=== PATIENT | male | born 1950 | race Caucasian/White ===

== ENCOUNTER → 2019-03-19 12:34 | Outpatient (BNVA) | payer MEDICARE, SELFPAY | PROVIDERS: Family Provider Family Medicine; PCP Family Medicine; Visit Provider Anesthesiology | DX: R52 Pain, unspecified (principal); E13.43 Other specified diabetes mellitus with diabetic autonomic (poly)neuropathy; F17.210 Nicotine dependence, cigarettes, uncomplicated; Z79.891 Long term (current) use of opiate analgesic | CPT/HCPCS: 99214 ==

== ENCOUNTER → 2019-05-08 12:57 | Outpatient (BNVA) | payer MEDICARE, SELFPAY | PROVIDERS: Family Provider Family Medicine; PCP Family Medicine; Visit Provider Anesthesiology | DX: Z76.89 Persons encountering health services in other specified circumstances (principal) ==

== ENCOUNTER → 2019-07-11 10:28 | Outpatient (BNVA) | payer MEDICARE, SELFPAY | PROVIDERS: Family Provider Family Medicine; PCP Family Medicine; Visit Provider Anesthesiology | DX: G89.29 Other chronic pain (principal); M54.42 Lumbago with sciatica, left side; E13.43 Other specified diabetes mellitus with diabetic autonomic (poly)neuropathy; F17.210 Nicotine dependence, cigarettes, uncomplicated; Z79.891 Long term (current) use of opiate analgesic; Z71.6 Tobacco abuse counseling | CPT/HCPCS: 99214 ==

== ENCOUNTER → 2019-09-20 09:19 | Outpatient (BNVA) | payer MEDICARE, SELFPAY | PROVIDERS: Family Provider Family Medicine; PCP Family Medicine; Visit Provider Nurse Practitioner | DX: G89.29 Other chronic pain (principal); M54.42 Lumbago with sciatica, left side; M06.9 Rheumatoid arthritis, unspecified; F17.210 Nicotine dependence, cigarettes, uncomplicated; Z79.891 Long term (current) use of opiate analgesic | CPT/HCPCS: 99213 ==

== ENCOUNTER → 2019-10-18 10:52 | Outpatient (BNVA) | payer MEDICARE, SELFPAY | PROVIDERS: Family Provider Family Medicine; PCP Family Medicine; Visit Provider Anesthesiology | DX: G89.29 Other chronic pain (principal); M54.42 Lumbago with sciatica, left side; E13.43 Other specified diabetes mellitus with diabetic autonomic (poly)neuropathy; F17.210 Nicotine dependence, cigarettes, uncomplicated; Z79.891 Long term (current) use of opiate analgesic | CPT/HCPCS: 99213; 99214 ==

== ENCOUNTER → 2019-12-18 07:57 | Outpatient (BNVA) | payer MEDICARE, SELFPAY | PROVIDERS: Family Provider Family Medicine; PCP Family Medicine; Visit Provider Anesthesiology | DX: G89.29 Other chronic pain (principal); M54.42 Lumbago with sciatica, left side; Z79.891 Long term (current) use of opiate analgesic | CPT/HCPCS: 99212; 99214 ==

== ENCOUNTER → 2020-02-12 08:57 | Outpatient (BNVA) | payer MEDICARE, SELFPAY | PROVIDERS: Family Provider Family Medicine; PCP Family Medicine; Visit Provider Anesthesiology | DX: G89.29 Other chronic pain (principal); M54.42 Lumbago with sciatica, left side; M25.551 Pain in right hip; E13.43 Other specified diabetes mellitus with diabetic autonomic (poly)neuropathy; F17.210 Nicotine dependence, cigarettes, uncomplicated; Z79.891 Long term (current) use of opiate analgesic | CPT/HCPCS: 99214 ==

== ENCOUNTER → 2020-04-08 08:41 | Outpatient (BNVA) | payer MEDICARE, SELFPAY | PROVIDERS: Family Provider Family Medicine; PCP Family Medicine; Visit Provider Anesthesiology | DX: G89.29 Other chronic pain (principal); M54.41 Lumbago with sciatica, right side; M25.552 Pain in left hip; M25.551 Pain in right hip; F17.210 Nicotine dependence, cigarettes, uncomplicated; Z79.891 Long term (current) use of opiate analgesic | CPT/HCPCS: 99214 ==

== ENCOUNTER → 2020-06-10 08:56 | Outpatient (BNVA) | payer MEDICARE, SELFPAY | PROVIDERS: Family Provider Family Medicine; PCP Family Medicine; Visit Provider Anesthesiology | DX: G89.29 Other chronic pain (principal); M54.41 Lumbago with sciatica, right side; E13.43 Other specified diabetes mellitus with diabetic autonomic (poly)neuropathy; F17.210 Nicotine dependence, cigarettes, uncomplicated; Z79.891 Long term (current) use of opiate analgesic | CPT/HCPCS: 99213 ==

== ENCOUNTER 2020-06-23 09:26 | Outpatient (CLI) | payer OTHER, MEDICARE, SELFPAY ==
--- NOTE | 2020-06-23 09:48 | CT_ITS ---
WS: [id number] CT NECK WITH CONTRAST HISTORY: DYSPHAGIA TECHNIQUE: Contiguous 5 mm axial images are performed through the neck with intravenous contrast. Sag ittal and coronal reformats are also submitted. All CT scans at [facility] use at least o ne of these dose optimization techniques: automated exposure control; mA and/or kV adjustment per pat ient size (includes targeted exams where dose is matched to clinical indication); or iterative recons truction. CONTRAST: CONTRAST: Omnipaque 300; 95 mL IV. DLP: 1227.31 mGycm COMPARISON: None available. Nasopharynx, oropharynx, hypopharynx and larynx are unremarkable. No soft tissue masses or abnormal e nhancement. Torus tubarius and fossa of Rosenmuller and parapharyngeal fat are normal. No significant lymphadenopathy is identified. Thyroid gland and salivary glands are normally enhancing with no masses. Advanced degenerative changes in the cervical spine. Most significant degenerative changes at C5-6 an d C6-7. Visualized portions of the skull base demonstrate no abnormalities. Orbits and globes are within norm al limits. No soft tissue masses. Visualized paranasal sinuses and mastoid air cells are normal. Severe emphysematous changes are noted at the lung apices. Paraseptal and centrilobular emphysema wit h fibrosis and scarring. Pulmonary fibrosis is most significant at the LEFT apex. Increasing soft tis darian at the LEFT apex extends towards the pleura. The extent of the soft tissue thickening has increas ed since 04/07/2018. Area of soft tissue thickening measures 2.5 x 2.6 cm. There is a additional spicul ated nodule maximum diameter of 1.1 cm at the RIGHT apex which is also more prominent. Mild circumferential thickening of the upper thoracic esophagus. CT/CT neck w con* [id number] IMPRESSION: 1. No mass or adenopathy within the neck. 2. Bilateral upper lobe increasing pulmonary opacifications. May all be progre ssion of fibrotic disease and related to severe bullous emphysema. As there has been a progression since 04/07/2018 recommend follow-up chest CT with IV contras t in 3 months.
[2020-06-23] MEDS: iohexol 300 mg/mL 100 mL Btl IV (10:29)
== END 2020-06-23 09:27 | disposition home or self-care (01) ==
PROVIDERS: PCP Family Medicine; Visit Provider Family Medicine
DX: R13.10 Dysphagia, unspecified (principal)
CPT/HCPCS: 70491; Q9967

== ENCOUNTER → 2020-07-03 10:44 | Outpatient (BNVA) | payer OTHER, MEDICARE, SELFPAY | PROVIDERS: PCP Family Medicine; Visit Provider Surgery | DX: Z01.812 Encounter for preprocedural laboratory examination (principal); Z20.822 Contact with and (suspected) exposure to COVID-19 | CPT/HCPCS: 87635 ==

== ENCOUNTER 2020-07-09 08:01 | Day surgery (SDC) | payer OTHER, MEDICARE, SELFPAY ==
[2020-07-07 08:04] VITALS: BMI 21.7
[2020-07-09 08:14] VITALS: BP 129/73; PULSE 70; RESP 20; TEMP 36.9; O2SAT 98
[2020-07-09] MEDS: sodium chloride 0.9% 1,000 ML 30 ML IV (08:42)
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
--- NOTE | 2020-07-09 09:46 | SUR.OPER ---
Pt dilated with 12, 13.5, 15; 15 16.5, 18, and 18, 19, 20 balloon
[2020-07-09 09:48] VITALS: BP 147/83; PULSE 81; RESP 147; TEMP 37; O2SAT 100
[2020-07-09 09:57] VITALS: BP 138/90; PULSE 71; RESP 18; TEMP 37.2; O2SAT 97
--- NOTE | 2020-07-09 14:48 | ANE.PACU2 ---
Inpatient post-anesthesia follow up: Airway intact: Yes Vital signs: Temperature 99.0 F Pulse Rate 71 Respiratory Rate 18 Blood Pressure 138/90 Pulse Oximetry 97 Oxygen Delivery Me thod Nasal Cannula Oxygen Flow Rate 3 Fraction of Inspir ed Oxygen Hydration adequate: Yes Nausea and vomiting: No Pain level: 1 Mental status: Baseline
== END 2020-07-09 10:08 | disposition home or self-care (01) ==
PROVIDERS: PCP Family Medicine; Visit Provider Surgery
DX: R13.10 Dysphagia, unspecified (principal); K22.2 Esophageal obstruction; M06.9 Rheumatoid arthritis, unspecified; I25.10 Atherosclerotic heart disease of native coronary artery without angina pectoris; I10 Essential (primary) hypertension; J44.9 Chronic obstructive pulmonary disease, unspecified; Z82.49 Family history of ischemic heart disease and other diseases of the circulatory system; F17.210 Nicotine dependence, cigarettes, uncomplicated; K21.9 Gastro-esophageal reflux disease without esophagitis; E11.9 Type 2 diabetes mellitus without complications; E78.5 Hyperlipidemia, unspecified
CPT/HCPCS: 43239; 43249; 88305; 96360; J2704; J7030

== ENCOUNTER → 2020-08-12 07:53 | Outpatient (BNVA) | payer MEDICARE, SELFPAY | PROVIDERS: PCP Family Medicine; Visit Provider Anesthesiology | DX: G89.29 Other chronic pain (principal); M54.41 Lumbago with sciatica, right side; M25.551 Pain in right hip; F17.210 Nicotine dependence, cigarettes, uncomplicated; Z79.891 Long term (current) use of opiate analgesic | CPT/HCPCS: 99213; 99214 ==

== ENCOUNTER 2020-08-18 13:43 | Emergency (ER) | payer OTHER, MEDICARE, SELFPAY ==
[2020-08-18 14:11] VITALS: BP 144/70; PULSE 102; RESP 16; TEMP 38.1; O2SAT 92; BMI 21.6
--- NOTE | 2020-08-18 14:32 | XRR_ITS ---
PROCEDURE INFORMATION: Exam: XR Chest Exam date and time: 08/18/2020 2:32 PM Age: 70 years old Clinical indication: Cough and dyspnea; Patient HX: History-c/o dyspnea/cough ; covid symptoms TECHNIQUE: Imaging protocol: XR of the chest. Views: 1 view. COMPARISON: CR Chest 1 [place] [id number] 04/11/2018 11:17 AM FINDINGS: Lungs: There is a bulla in the left upper lobe of the lung. There is chronic lung change and emphysema. No acute pneumonia or edema. Pleural spaces: Unremarkable. No pleural effusion. No pneumothorax. Heart/Mediastinum: Unremarkable. No cardiomegaly. Bones/joints: Unremarkable. XR/XR chest 1V portable [id number] IMPRESSION: There are no acute concerning abnormalities.
--- NOTE | 2020-08-18 14:32 | ECG_ITS ---
[facility] Test Date: 2020-08-18 Pat Name: Albert Melara Department: Room: Gender: Male Bacteriology Research Assistant: : 1950 Requested By: Ralph Diaz Order Number: [id number] Alyse MD: Huseyin Bolanos M.D. Measurements Intervals Metcalf Rate: 74 P: 51 MS: 169 QRS: 84 QRSD: 92 T: 83 QT: 325 QTc: 362 Interpretive Statements SINUS RHYTHM POSSIBLE RIGHT VENTRICULAR CONDUCTION DELAY [RSR (QR) IN V1/V2] Compared to ECG 04/11/2018 11:00:41 No significant changes Electronically Signed On 08-19-2020 0:31:34 CDT by Huseyin Bolanos M.D. [email or web address]
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
[2020-08-18 16:16] VITALS: BP 127/63; PULSE 77; RESP 18; O2SAT 98
[2020-08-18 16:22] VITALS: BP 127/63; PULSE 86; RESP 18
[2020-08-18 16:57] LABS: Basophils % 0.5 %; Eosinophils # 0.1 10^3/uL (0.0-0.8); Eosinophils % 2.2 %; Hematocrit 34.8 % (42.0-52.0); Hemoglobin 11.2 g/dL (11.7-16.6); Lymphocytes # 0.9 10^3/uL (0.8-4.8); Lymphocytes % 14.6 %; Mean Corpuscular HGB Conc 32.2 g/dL (30.0-36.0); Mean Corpuscular Hemoglobin 31.8 pg (28.0-34.0); Mean Corpuscular Volume 98.9 fL (80-94); Mean Platelet Volume 10.8 fL (7.4-10.4); Monocytes # 1.1 10^3/uL (0.2-0.9); Monocytes % 18.3 %; Neutrophils # 3.81 10^3/uL (1.8-7.7); Neutrophils % 64.1 %; Nucleated Red Blood Cells % 0 %; Platelet Count 174 10^3/cmm (130-400); Red Blood Count 3.52 10^6/uL (4.1-5.3); Red Cell Distribution Width 13.9 % (12.1-15.1)
[2020-08-18 17:39] LABS: SARS Covid-2 Antigen Positive (Negative)
[2020-08-18 17:49] LABS: Alanine Aminotransferase 15 U/L (0-41); Albumin Level 3.4 g/dL (3.5-5.2); Alkaline Phosphatase 118 IU/L (40-130); Aspartate Amino Transferase 17 U/L (0-40); Blood Urea Nitrogen 8 mg/dL (8-23); Calcium 8.4 mg/dL (8.5-10.5); Carbon Dioxide 30 mmol/L (22-29); Chloride 94 mmol/L (98-107); Globulin 2.6 g/dL (1.3-4.6); Glucose 106 mg/dL (65-115); Osmolality Calculated 271 mOsm/kg (285-295); Sodium 131 mmol/L (136-145); Total Bilirubin 0.2 mg/dL (0.15-1.2)
[2020-08-18 17:51] LABS: Anion Gap 11.5 (5-19); Potassium 4.5 mmol/L (3.5-5.1)
[2020-08-18 18:26] VITALS: BP 118/70; PULSE 82; RESP 18; O2SAT 98
[2020-08-18 20:26] VITALS: BP 135/56; RESP 22; O2SAT 96
[2020-08-19 15:02] LABS: Coronavirus Test Green County Detected
--- NOTE | 2020-08-27 13:21 | DCPLANNER ---
technical product manager had message that patient received the monoclonal antibody infusion. technical product manager called patient to check on patient after receiving the infusion. technical product manager was unable to speak with patient at this time, a voicemail was left for patient to return case therapist phone call.
== END 2020-08-18 21:05 ==
PROVIDERS: Emergency Provider Family Medicine; PCP Family Medicine
DX: U07.1 COVID-19 (principal); I25.10 Atherosclerotic heart disease of native coronary artery without angina pectoris; J44.9 Chronic obstructive pulmonary disease, unspecified; Z79.84 Long term (current) use of oral hypoglycemic drugs; Z79.82 Long term (current) use of aspirin; I10 Essential (primary) hypertension; E11.40 Type 2 diabetes mellitus with diabetic neuropathy, unspecified; F17.210 Nicotine dependence, cigarettes, uncomplicated
CPT/HCPCS: 71045; 80053; 85025; 87426; 87635; 93005; 96365; 99284

== ENCOUNTER → 2020-10-13 07:56 | Outpatient (BNVA) | payer MEDICARE, SELFPAY | PROVIDERS: PCP Family Medicine; Visit Provider Anesthesiology | DX: G89.29 Other chronic pain (principal); M54.41 Lumbago with sciatica, right side; M25.551 Pain in right hip; M25.552 Pain in left hip; F17.210 Nicotine dependence, cigarettes, uncomplicated; Z79.891 Long term (current) use of opiate analgesic | CPT/HCPCS: 99214 ==

== ENCOUNTER 2020-10-15 13:22 | Outpatient (CLI) | payer OTHER, SELFPAY ==
--- NOTE | 2020-10-15 13:29 | CT_ITS ---
WS: [id number] CT ABDOMEN AND PELVIS WITH CONTRAST HISTORY: WEIGHT LOSS TECHNIQUE: Imaging performed of the abdomen and pelvis with IV contrast. Single phase imaging of the abdomen. Coronal and sagittal reformats are submitted. All CT scans at [facility] use at [address] one of these dose optimization techniques: automated exposure control; mA and/or kV adjustment per patient size (includes targeted exams where dose is matched to clinical indication); or iterative re construction. IV CONTRAST: Omnipaque 300; 95 mL IV. Oral contrast: Yes. DLP: 772.91 mGycm COMPARISON: 10/23/2015 and 04/07/2018 Lower thorax: Moderate emphysema at the lung bases. Heart is normal size. Small hiatal hernia. Liver/biliary system: Normal size liver. Central and extra hepatic bile duct dilatation. Mild progres bianca of the intrahepatic and extrahepatic duct dilatation. Common bile duct has increased from 9 mm t o 12 mm since 10/23/2015. Etiology of the dilatation is not certain. No masses or calcifications are i dentified. Central calcifications are coarse in the mid liver. Gallbladder: Normal. No gallstones or wall thickening. No pericholecystic fluid. Pancreas: Pancreatic duct is not dilated. Common bile duct tapers to the pancreatic head. No mass medardo ntified. Spleen: Normal size spleen. No mass or infarct. Adrenal glands: Normal. Right kidney: Normal size kidney. Several nonobstructing calcifications and renal cysts. No solid mas s. No obstruction. Left kidney: Stable cortical cysts in the lower pole. There is an extrarenal pelvis. No obstruction o f the kidney. Aorta: Moderate atherosclerotic changes within the aorta. Very mild aneurysmal dilatation to 3.2 cm i nvolving the infrarenal aorta. Iliac arteries are tortuous and ectatic. Lymphadenopathy: None. Free fluid: None. GI tract: Normal appendix. No obstruction of the GI tract. Abdominal wall: Unremarkable abdominal wall. No hernia. Pelvis: Minimally distended urinary bladder. Enlarged prostate gland with central calcifications. Loo p of small bowel near the very orifice of the RIGHT inguinal hernia. No obstruction. Bones: No osteoblastic or osteolytic bone disease. CT/CT abdomen pelvis w con* [id number] IMPRESSION: 1. Mild progressive dilatation of the intrahepatic and extrahepatic common sandhya e ducts. Unknown etiology. Gallbladder is still present. 2. Prostate enlargement. 3. Small hiatal hernia. 4. Mild aneurysmal dilatation infrarenal aorta is 3.2 cm. 5. RIGHT inguinal hernia with a small bowel loop at the orifice of the hernia. No obstruction.
[2020-10-15] MEDS: iohexol 300 mg/mL 50 mL Btl PO (13:42)
[2020-10-15] MEDS: iohexol 300 mg/mL 100 mL Btl IV (15:00)
== END 2020-10-15 13:23 | disposition home or self-care (01) ==
PROVIDERS: PCP Family Medicine; Visit Provider Family Medicine
DX: R63.4 Abnormal weight loss (principal)
CPT/HCPCS: 74177; Q9967

== ENCOUNTER → 2020-12-09 08:18 | Outpatient (BNVA) | payer MEDICARE, SELFPAY | PROVIDERS: PCP Family Medicine; Visit Provider Anesthesiology | DX: G89.29 Other chronic pain (principal); M54.40 Lumbago with sciatica, unspecified side; M25.551 Pain in right hip; E13.43 Other specified diabetes mellitus with diabetic autonomic (poly)neuropathy; F17.200 Nicotine dependence, unspecified, uncomplicated; Z79.891 Long term (current) use of opiate analgesic; Z71.6 Tobacco abuse counseling; Z79.84 Long term (current) use of oral hypoglycemic drugs | CPT/HCPCS: 99214 ==

== ENCOUNTER 2020-12-23 21:07 | Inpatient (IN) | payer OTHER, MEDICARE, SELFPAY ==
[2020-12-23 21:15] VITALS: BP 156/75; PULSE 82; RESP 18; TEMP 36.8; O2SAT 97; BMI 20.9
--- NOTE | 2020-12-23 21:25 | CTR_ITS ---
PROCEDURE INFORMATION: Exam: CT Abdomen And Pelvis With Contrast Exam date and time: 12/23/2020 9:25 PM Age: 70 years old Clinical indication: Abdominal pain; Prior surgery; Surgery type: Inguinal hernia repair. Ptca. ; Patient HX: Left flank pain with gross hematuria. ; Additional info: Eval aaa and flank pain TECHNIQUE: Imaging protocol: Computed tomography of the abdomen and pelvis with contrast. Radiation optimization: All CT scans at this facility use at least one of these dose optimization techniques: automated exposure control; mA and/or kV adjustment per patient size (includes targeted exams where dose is matched to clinical indication); or iterative reconstruction. Contrast material: OMNI 300; Contrast volume: 95 ml; Contrast route: INTRAVENOUS (IV); COMPARISON: CT abdomen pelvis w con* [id number] 10/15/2020 2:57 PM RADIATION DOSE METRICS: Total DLP (mGy-cm): 942.3 FINDINGS: Lungs: Continued patchy minimal stranding in the lung bases along with slight hyperinflation of both lower lungs. Tiny calcification in the left posterior sulcus on image 15 of series 2 more apparent than before, with a granuloma still suspected. Diaphragm: Two small adjacent calcifications in the area of the medial right hemidiaphragm near the margin of the heart again evident, possibly due to nodes. Liver: No change in the small cluster of 2 irregular calcifications in the liver adjacent to the central left hepatic vein or the few small calcifications in the left lobe of the liver suggesting old granulomatous disease. Still no noncalcified liver mass. Gallbladder and bile ducts: Continued moderate intrahepatic biliary ductal dilatation. Interval increase in the dilatation of the proximal CBD from 1.6 cm in oblique width on coronal images to 2.1 cm. Still no calcified stones in the gallbladder or CBD. Pancreas: Distal pancreatic duct about 5.4 mm deep consistent with an interval change. No interval dilatation of the pancreatic duct in the neck and body. No obvious pancreatic mass. Spleen: Still no splenomegaly. Adrenal glands: Stable slightly plump adrenal glands. Kidneys and ureters: Interval enlargement of the left extrarenal pelvis and development of mild left hydronephrosis along with appearance of soft tissue density measuring 68 HU filling most of the left renal pelvis and collecting system. Interval mild low density left perirenal fluid. No interval significant dilatation of the left ureter or suggestion of a left ureteral stone. Interval mildly delayed left nephrogram. Continued presence of 2 small stones and 2 probable tiny stones in the right kidney. One tiny left renal stone also probable. Continued presence of small low-density masses in the kidneys, the largest located in the right kidney measuring 18 mm and 12 HU. Still no right hydronephrosis. Stomach and bowel: Continued moderate descending colonic diverticulosis. A few right colonic diverticula again evident. Interval slightly increased feces throughout most of the colon. Still no bowel obstruction. Appendix: Still no appendicitis. Intraperitoneal space: Still no free air. Vasculature: Continued atherosclerosis. No interval fluid collection along the aneurysm of the infrarenal abdominal aorta having a depth of 3 cm on axial image 32 and a true width of 2.8 cm on coronal image 27. Continued higher density in the left pelvic veins and slightly larger size of these veins suggesting varices, with the asymmetrical density especially evident on image 79 of series 2. Mild enlargement of the left gonadal vein. Higher density in the left internal iliac veins than in the left external iliac veins. Lymph nodes: No suggestion of enlarged noncalcified lymph nodes. Urinary bladder: Interval appearance of the small rounded focus of increased density in the posteroinferior bladder slightly separate from the indentation of the bladder base by the prostate. Reproductive: Continued prostatic enlargement and calcifications. Increased density in the penile corpora still present. Bones/joints: Old compression fractures again evident. Continued degeneration of several discs. Slight spondylolisthesis at L4-L5 and retrolisthesis at L3-L4 still present. Articulation of the L5 transverse processes with the sacrum still present. Soft tissues: Continued minimal left inguinal hernia containing fat. CT/CT abdomen pelvis w con* [id number] IMPRESSION: 1. Interval left hydronephrosis and appearance of a cast of increased density suggestive of acute blood within the left renal pelvis and collecting system. Interval mildly delayed function of the left kidney and appearance of mild left perirenal fluid related to the hydronephrosis. Still no apparent obstructing stone in the left ureter. Interval small focus of increased density in the bladder likely due to blood. 2. Continued nephrolithiasis and renal masses suggestive of simple cysts needing no follow-up. 3. No significant change or suggestion of interval rupture of the 3 x 2.8 cm infrarenal abdominal aortic aneurysm. 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 4. Interval worsening of the prominent CBD dilatation and continued moderate intrahepatic biliary ductal dilatation. Interval mild dilatation of the distal pancreatic duct. No obvious pancreatic head mass; ampullary mass not excluded. Still no calcified gallstones. 5. Continued prostatic enlargement and calcifications. Increased density in the penile corpora still present, most likely due to calcifications. 6. Hyperinflation in the lung bases still likely. Other findings detailed above. COMMENTS: Consistent with the [employer]'s Incidental Findings Committee white paper (J Am Kai Radiol 2018): Any incidental renal lesion less than 1 cm or classified as too small to characterize, or any incidental cystic renal lesion characterized as simple-appearing, is likely benign. No follow-up imaging is recommended for these lesions per consensus recommendations based on imaging criteria. Radiation Dose CTDIVOL = (mGy): DLP = 942.3 (mGy-cm)
--- NOTE | 2020-12-23 22:01 | ED_ITS ---
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 Discharge Patient Disposition: Admitted As Inpatient Admit Provider: Traci Damon Clinical Impression: Hematuria, Acute flank pain Condition: Stable Discharge Diet: Advance as tolerated Discharge Activity: Resume usual activity Coding Level of Care Code ED It Business Analyst for Chg Javier
[2020-12-23] MEDS: acetaminophen 500 mg Tablet PO (22:25)
[2020-12-23 22:26] VITALS: RESP 16
[2020-12-23] MEDS: morphine 4 mg/mL SDV 1 mL 2 MG IVP (22:26)
[2020-12-23] MEDS: sodium chloride 0.9% 1,000 ML 999 ML IV (22:27)
[2020-12-23 22:34] LABS: Basophils % 0.3 %; Eosinophils # 0.3 10^3/uL (0.0-0.8); Eosinophils % 2.4 %; Hematocrit 37.6 % (42.0-52.0); Hemoglobin 12.4 g/dL (11.7-16.6); Lymphocytes % 16.8 %; Mean Corpuscular Hemoglobin 32.2 pg (28.0-34.0); Mean Corpuscular Volume 97.7 fl (80-94); Monocytes # 0.9 10^3/uL (0.2-0.9); Neutrophils % 72.1 %; Nucleated Red Blood Cells % 0 %; Platelet Count 207 10^3/cmm (130-400); Red Blood Count 3.85 10^6/uL (4.1-5.3); Red Cell Distribution Width 13.8 % (12.1-15.1); White Blood Count 11.7 10^3/uL (4.0-10.0)
[2020-12-23 22:41] VITALS: BP 133/75; PULSE 77; O2SAT 96
[2020-12-23 22:56] LABS: Alanine Aminotransferase 10 U/L (0-41); Albumin Level 4.2 g/dL (3.5-5.2); Alkaline Phosphatase 136 IU/L (40-130); Anion Gap 14.3 (5-19); Aspartate Amino Transferase 13 U/L (0-40); Blood Urea Nitrogen 16 mg/dL (8-23); Carbon Dioxide 31 mmol/L (22-29); Chloride 97 mmol/L (98-107); Globulin 3.1 g/dL (1.3-4.6); Glucose 182 mg/dL (65-115); Lipase 11 U/L (13-60); Osmolality Calculated 292 mOsm/kg (285-295); Potassium 4.3 mmol/L (3.5-5.1); Sodium 138 mmol/L (136-145); Total Bilirubin 0.2 mg/dL (0.15-1.2); Total Protein 7.3 g/dL (6.6-8.7)
[2020-12-23] MEDS: iohexol 300 mg/mL 100 mL Btl IV (23:07)
[2020-12-24] VITALS (16 sets, daily range): BP systolic 120–170; BP diastolic 65–103; PULSE 86–115; RESP 16–22; TEMP 37.3–37.8; O2SAT 93–99; BMI 20.9
[2020-12-24 00:24] LABS: Urine Color Red (Yellow)
[2020-12-24 00:25] LABS: Add Urine Microscopic? YES; Bilirubin Urine 1+ (Negative); Blood Urine 3+ (Negative); Glucose Urine UA Norm (Normal); Ketones Urine 1+ (Negative); Leukocyte Esterase Urine Trace (Negative); Nitrate Urine Negative (Negative); Protein Urine 3+ (Negative); Specific Gravity, Urine 1.015 (1.005-1.030); Urine Appearance Turbid (CLEAR); Urobilinogen Urine 1 mg/dL (Negative); pH Urine 6.5 (5-7)
[2020-12-24 00:27] LABS: Add Urine Culture? Yes; RBC Urine TOO NUMEROUS TO CNT /hpf (0-2); Squamous Epithelial Cell Urine 0-4 /hpf (0-5)
[2020-12-24] MEDS: morphine 4 mg/mL SDV 1 mL 2 MG IVP ×5 (00:45→22:10)
[2020-12-24 00:54] LABS: Lactate (Lactic Acid level) 1.1 mmol/L (0.5-2.2)
[2020-12-24] MEDS: ondansetron 2 mg/ML SDV 2 mL 4 MG IVP (01:00)
--- NOTE | 2020-12-24 01:03 | CTR_ITS ---
PROCEDURE INFORMATION: Exam: CTA Chest Without And With Contrast Exam date and time: 12/24/2020 1:03 AM Age: 70 years old Clinical indication: Other: Gross hematuria. ; Shortness of breath; Prior surgery; Surgery type: Ptca. Inguinal hernia repair. ; Patient HX: Per er physician, angiographic evaluation due to active blood products in left renal collecting system. ; Additional info: Eval acute blood in the L renal pelvis and aaa leak TECHNIQUE: Imaging protocol: Computed tomographic angiography of the chest without and with contrast. 3D rendering (Not supervised by radiologist): MIP and/or 3D reconstructed images were created by the technologist. Radiation optimization: All CT scans at this facility use at least one of these dose optimization techniques: automated exposure control; mA and/or kV adjustment per patient size (includes targeted exams where dose is matched to clinical indication); or iterative reconstruction. Contrast material: OMNI 350; Contrast volume: 95 ml; Contrast route: INTRAVENOUS (IV); COMPARISON: CTA Chest-Pulmonary Emb [id number] 04/07/2018 7:52 PM RADIATION DOSE METRICS: Total DLP (mGy-cm): 1359.68 FINDINGS: Pulmonary arteries: Distortion and prominent narrowing of the left upper lung pulmonary arteries. Proximal tapering of multiple small right pulmonary arteries. No central or segmental pulmonary embolus. No suggestion of a subsegmental embolus. Aorta: Atherosclerosis. No aortic aneurysm or dissection. Trachea: Slight displacement of the trachea and superior mediastinum to the left. Lungs: Continued presence of extensive paraseptal and centrilobular blebs throughout most of each lung. Continued prominent bullae in the left upper lobe. Retractile stranding still present in the inferolateral left upper lobe and the right upper lobe. Decreased volume of the left upper lung still present. Continued triangular calcification in the small focus of pleural-based soft tissue density in the posterolateral left lung apex. Interval disappearance of the airspace disease from the posterior right lower lobe. No change in the small peripheral densities in the right middle lobe. No interval consolidation. Pleural spaces: Still no pneumothorax. Interval disappearance of the right pleural fluid. Still no left pleural fluid. Heart: No cardiomegaly or pericardial effusion. Coronary artery calcifications. Lymph nodes: No interval suspicious lymph nodes. Bones/joints: Old compression fractures again evident. Continued degeneration of several discs. Short 12th ribs. Soft tissues: Slight posterior body wall edema. IMPRESSION: 1. No apparent pulmonary embolus. No acute aortic disease. 2. Continued prominent emphysema, with a significant bullous component in the left upper lobe. Scarring in both upper lobes and decreased volume of the left upper lobe as before. Interval disappearance of the right lower lobe pneumonia and right pleural fluid. 3. Chronic bony findings and other abnormalities detailed above. PROCEDURE INFORMATION: Exam: CTA Abdomen and Pelvis With Contrast Exam date and time: 12/24/2020 1:03 AM Age: 70 years old Clinical indication: Other: Gross hematuria. ; Shortness of breath; Prior surgery; Surgery type: Ptca. Inguinal hernia repair. ; Patient HX: Per er physician, angiographic evaluation due to active blood products in left renal collecting system. ; Additional info: Eval acute blood in the L renal pelvis and aaa leak TECHNIQUE: Imaging protocol: Computed tomographic angiography of the abdomen and pelvis with contrast material. 3D rendering (Not supervised by radiologist): MIP and/or 3D reconstructed images were created and reviewed. Radiation optimization: All CT scans at this facility use at least one of these dose optimization techniques: automated exposure control; mA and/or kV adjustment per patient size (includes targeted exams where dose is matched to clinical indication); or iterative reconstruction. Contrast material: OMNI 350; Contrast volume: 95 ml; Contrast route: INTRAVENOUS (IV); COMPARISON: 1. CT abdomen pelvis w con* [id number] 12/23/2020 11:04:23 PM 2. CTA Chest-Pulmonary Emb [id number] 04/07/2018 7:52 PM RADIATION DOSE METRICS: Total DLP (mGy-cm): 1359.68 FINDINGS: Aorta: No change in size of the 3 x 2.7 cm infrarenal abdominal aortic aneurysm. No contrast extravasation from the aneurysm. Approximately 1.9 cm long contained dissection in the right side of the proximal infrarenal abdominal aorta still present having no connection to the more inferior aneurysm and causing dilatation of the aorta to 2.4 x 2.5 cm. Celiac trunk and mesenteric arteries: No occlusion or significant stenosis. Renal arteries: Two left renal arteries now evident; no aneurysm of or significant stenosis in these arteries. Single right renal artery without a significant stenosis or aneurysm. 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 No stenosis in the right common iliac artery. No significant stenosis and/or aneurysm in the other right iliac arteries. 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 No stenosis in the left common iliac. No significant stenosis and/or aneurysm in the other left iliac arteries Liver: Liver findings mentioned in the recent report. Gallbladder and bile ducts: Biliary and gallbladder findings mentioned in the recent report. Pancreas: Pancreatic findings mentioned in the recent report. Spleen: Still no splenomegaly. Adrenal glands: Adrenal findings mentioned in the recent report. Kidneys and ureters: Filling defect in the dilated left collecting system and extrarenal pelvis consistent with the cast of apparent acute blood on the recent CT; possible extension of this filling defect into the very proximal left ureter. Continued somewhat delayed left nephrogram; mild striation of the left renal cortex now visible. Interval predominantly anterior extravasation of excreted contrast from the left renal pelvis and/or collecting system. Low-density perirenal fluid still present along the posterior and lateral aspect of the left kidney. Still no right hydronephrosis. No significant change in the renal masses. Stomach and bowel: Findings mentioned in the recent report. Appendix: No appendicitis. Intraperitoneal space: Still no free air. Lymph nodes: Findings mentioned in the recent report. Urinary bladder: Filling of most of the nondistended bladder by a dense excreted contrast with no obvious mass in the bladder. No contrast in the left ureter on any of the images. Reproductive: Indentation of the bladder base by the enlarged prostate as before. Bones/joints: Bony findings mentioned in the recent report. Soft tissues: Findings mentioned in the recent report. CT/CT angio chest w abd pel w con IMPRESSION: 1. No change in size or rupture of the 3 x 2.7 cm infrarenal abdominal aortic aneurysm. Small contained dissection in the more proximal infrarenal abdominal aorta also evident having no rupture. No aneurysm of the 2 left renal arteries. 2. Continued filling defect in the dilated left renal pelvis and collecting system suggestive of the acute hematoma on the recent CT scan. Interval extravasation of excreted contrast from the left renal pelvis and/or collecting system. No contrast in the left ureter on any of the images, therefore obstruction of the UPJ region suspected, with clot extending into this area felt to be conceivable. 3. Indentation of the bladder base by the enlarged prostate. No apparent mass elsewhere in the bladder. 4. Other findings mentioned above or in the recent CT report. Radiation Dose CTDIVOL = (mGy): DLP = 1359.68~1359.68 (mGy-cm)
[2020-12-24] MEDS: iohexol 350 mg/mL 100 mL Btl IV (01:27)
[2020-12-24] MEDS: fentaNYL 50 mcg/mL INJ 2mL 100 MCG IVP (04:24)
[2020-12-24 06:56] LABS: Glucose Point of Care 217 mg/dL (70-110)
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
[2020-12-24] MEDS: insulin lispro 100 unit/1 mL SUBCUT (08:55)
[2020-12-24] MEDS: pantoprazole DR 40 mg Tablet PO (08:56)
[2020-12-24] MEDS: sodium chloride 0.9% 1,000 ML 50 ML IV (08:56)
--- NOTE | 2020-12-24 10:19 | DCPLANNER ---
public events facilities rental manager had message to schedule a follow up appointment for patient with Dr. Nichols, patient was admitted to hospital. public events facilities rental manager called the office of Dr. Nichols, spoke with Kristina, gave her patients information.
--- NOTE | 2020-12-24 11:56 | XR_ITS ---
WS: [id number] Exam: XR KUB [id number] Date/Time of Exam: 12/24/2020 12:25 PM Reason For Exam: Delayed imaging post CT scan with obstructed Left ureter. Left-sided hydronephrosis and proximal hydroureter noted with residual contrast. There is contrast in urinary bladder. 3 mm calcification superimposes the right renal silhouette most likely representing a stone. No bowel obstruction or free air. Moderate amount retained stool in the colon. Remaining or lenka margins are unremarkable. Bony structures are intact. XR/XR KUB [id number] IMPRESSION: 1. Left-sided hydronephrosis and hydroureter with retained contrast. There is a lso retention of contrast in the urinary bladder. 2. 3 mm calcification superimposing the lower pole the right kidney that might represent a renal stone. 3. No acute finding.
--- NOTE | 2020-12-24 12:16 | PM.MISC ---
Miscellaneous Note Note: I did discuss findings with the radiologist, he does have hematoma, aortic dissection seems chronic no acute change in dimension or worsening of dissection, no extravasation of contrast through the aneurysm,, & there is extravasation of contrast consistent with mild perinephric bleeding which has stopped, there is no flow of contrast in the ureter which is consistent with obstruction, Dr. Nichols is planning to evaluate him around noon Patient is endorsing feeling better he is able to void urine not complaining of severe left-sided flank pain He was laying supine S1, S2 Abdomen is soft Lower extremities no edema No venous stasis dermatitis Awake alert oriented x3 GCS [address] Nichols and keeping him n.p.o. until then, There is suspicion for transitional cell carcinoma which could have led to spontaneous hematoma complication is denying recent trauma he does have history of BPH, hemoglobin 12.4, creatinine is normal
[2020-12-24 13:16] LABS: Glucose Point of Care 104 mg/dL (70-110)
--- NOTE | 2020-12-24 13:45 | PC.PHAR ---
pts daughter verified the pts medications-pts daughter states the pt has a short acting insulin states the pt doesnt use it often and states she is unsure of the name of it-text and asked if he wanted it entered he states he would entered a ssi-
[2020-12-24] MEDS: cefTRIAXone 1,000 MG in sodium chloride 0.9% (plus) 50 ML 100 MG IV (13:52)
--- NOTE | 2020-12-24 13:58 | PC.CHAP ---
Pastoral Care Encounter/Spiritual Assessment Type of Contact [] Declined director enterprise systems visit [] Patient/Family/Request visit [] Outpatient visit [] Follow-up visit [] Physician referral [] Code/Alert [x] Routine visit [] Staff referral [] Actively dying [] Patient sleeping [] Family support [] [] Out of room [] Palliative care [] [x] Receiving care in room [] Pre-surgical visit [] Trauma [x] Long length of stay [] ICU visit [x] Other: with his Relational/Emotional Strength [x] Patient feels connected with others/family/visitors/staff [] Distress [] Loneliness/isolation [] Abandonment Spirituality of Patient [x] Person of Latoya [] Attends Restorationist of their Latoya [x] Believes in Prayer [] Reads Bible or Roman Catholic materials [] There are Spiritual issues to be addressed Industrial Photographer Interventions [x] Prayer [x] Active listening [x] Non-anxious presence [x] Spiritual/emotional support [] Crisis/trauma care [x] Spiritual counseling [] Bereavement support [] Provided bereavement packet [] Provided Bible/devotional materials [] Provided toy/stuffed animal, coloring book to patient or family member [] Provided Communion [] Anointing/Avery [] Salvation [x] Completed spiritual assessment [] Other: Impact on Illness or Injury [] Angry [] Fearful [x] Anxious [] Often cries [] Exhaustion [x] Unable to work [] Unable to attend yarsanism [] Unable to walk/stand [] Unable to read [] Unable to drive [] Unable to eat/drink [] Unable to sleep [] Unable to be with family [] Patient intubated [] Other: Summary bood work doesn't know negative signs or about his health he was unable to coommunicate / his is there to talk with vincenttoe and what needs to be done =1 Time spent with patient 10 mins
[2020-12-24] MEDS: ipratropium-albuterol 3 mL Neb INHALATION ×2 (15:48→20:39)
[2020-12-24 18:21] LABS: Glucose Point of Care 142 mg/dL (70-110)
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
[2020-12-24] MEDS: budesonide 0.5 mg/2 mL Neb INHALATION (20:39)
[2020-12-24 20:46] LABS: Glucose Point of Care 152 mg/dL (70-110)
[2020-12-24] MEDS: acetaminophen 325 mg Tablet 650 MG PO (22:10)
[2020-12-25] VITALS (24 sets, daily range): BP systolic 112–161; BP diastolic 64–91; PULSE 65–114; RESP 15–27; TEMP 36.6–38.1; O2SAT 96–98
--- NOTE | 2020-12-25 | SCC_ITS ---
Procedure Done: 1. Cystoscopy with left retrograde ureteropyelogram 2. Left flexible ureterorenoscopy 3. Left ureteral stent placement (7 Palestinian by 28 cm double-pigtail no string 154.9 seconds of fluoroscopic guidance, for a cumulative dose of 26.19 mGy, was provided to Dr. Nichols by the radiology department. C-arm images of the abdomen were saved for the patient's permanent record. [facility]
[2020-12-25] MEDS: morphine 4 mg/mL SDV 1 mL 2 MG IVP ×7 (02:08→23:46)
[2020-12-25] MEDS: sodium chloride 0.9% 1,000 ML 50 ML IV ×2 (04:00→14:59)
--- NOTE | 2020-12-25 05:00 | XR_ITS ---
WS: [id number] Exam: XR KUB [id number] Date/Time of Exam: 12/25/2020 5:00 AM Reason For Exam: Follow-up obstructed left ureter Comparison 12/24/2020. Comparison 01/23/2021. Left-sided hydronephrosis and hydroureter shows little change. No obvious calcifications noted in the region of the kidneys. No bowel obstruction or free air. No sign of organ enlargement. Bony elements are intact. XR/XR KUB [id number] IMPRESSION: 1. Left-sided hydronephrosis and hydroureter showing little change since the exam. 2. Constipation.
[2020-12-25 06:05] LABS: Basophils % 0.1 %; Hematocrit 34.7 % (42.0-52.0); Hemoglobin 11.4 g/dL (11.7-16.6); Lymphocytes # 1.6 10^3/uL (0.8-4.8); Lymphocytes % 9.7 %; Mean Corpuscular HGB Conc 32.9 g/dL (30.0-36.0); Mean Corpuscular Hemoglobin 32.1 pg (28.0-34.0); Mean Corpuscular Volume 97.7 fl (80-94); Mean Platelet Volume 11.3 fL (7.4-10.4); Monocytes # 1.3 10^3/uL (0.2-0.9); Monocytes % 8.2 %; Neutrophils # 13.13 10^3/uL (1.8-7.7); Neutrophils % 81.4 %; Nucleated Red Blood Cells % 0 %; Platelet Count 159 10^3/cmm (130-400); Red Blood Count 3.55 10^6/uL (4.1-5.3); Red Cell Distribution Width 13.7 % (12.1-15.1); White Blood Count 16.1 10^3/uL (4.0-10.0)
[2020-12-25 06:30] LABS: Glucose Point of Care 181 mg/dL (70-110)
[2020-12-25 06:33] LABS: Alanine Aminotransferase 63 U/L (0-41); Albumin Level 3.6 g/dL (3.5-5.2); Alkaline Phosphatase 158 IU/L (40-130); Anion Gap 15.9 (5-19); Aspartate Amino Transferase 109 U/L (0-40); Blood Urea Nitrogen 17 mg/dL (8-23); Calcium 8.7 mg/dL (8.5-10.5); Carbon Dioxide 28 mmol/L (22-29); Chloride 99 mmol/L (98-107); Globulin 2.2 g/dL (1.3-4.6); Glucose 169 mg/dL (65-115); Osmolality Calculated 291 mOsm/kg (285-295); Potassium 4.9 mmol/L (3.5-5.1); Sodium 138 mmol/L (136-145); Total Protein 5.8 g/dL (6.6-8.7)
--- NOTE | 2020-12-25 07:36 | PM.PN ---
Subjective Subjective: Interval history: Urology follow-up: Still requiring parenteral pain medication. Denies fever or chills. Pain still is typical for renal colic. KUB this morning shows persistence of contrast retained in the ureter with some distal migration to basically the mid ureter. No obvious extravasation identified. The renal collecting system is still distended as well. Because of the persistence of pain from obstruction I recommended cystoscopy, retrograde, ureteroscopy, stent placement this afternoon when time is available. Hopefully the upper urinary tract will be clear enough to be able to adequately visualize the calyceal system in search of source of initial bleeding. I reviewed the procedure in detail with him and he has given informed consent after discussion of benefits risk potential complications etc. Vitals/I&O/Wt Last Vital Signs Temp 97.9 F 12/25/20 07:16 Pulse 79 12/25/20 07:16 Resp 17 12/25/20 07:16 BP 125/72 12/25/20 07:16 Pulse Ox 98 12/25/20 07:16 12/24/20 12/25/20 12/25/20 22:59 06:59 14:59 Intake Total 50 / 50 1000 / 1050 Output Total 200 / 600 Balance 50 / -350 800 / 450 Weight last 48 hrs Weight 150 lb Weight 150 lb Physical Exam Const: COMMON NORMALS: no acute distress, alert and well nourished GENERAL APPEARANCE: well kempt and well developed ORIENTATION/CONSCIOUSNESS: not confused HENMT: COMMON NORMALS: normocephalic and atraumatic HEAD & SCALP: normocephalic and atraumatic Eye: COMMON NORMALS: conjunctivae normal and no scleral icterus CONJUNCTIVA: Yes conjunctivae normal Neck/C-Spine: COMMON NORMALS: full ROM Resp: COMMON NORMALS: normal respiratory effort EFFORT & INSPECTION: No labored and No Actively coughing GI: COMMON NORMALS: Soft to palpation PALPATION: Yes Soft to palpation and Yes Tenderness to palpation present (GI) Extremity: COMMON NORMALS: no clubbing, cyanosis or edema Neuro: COMMON NORMALS: no focal motor deficits SENSORIUM/ORIENTATION: Yes alert Psych: COMMON NORMALS: mental status grossly normal APPEARANCE: Yes grossly normal and Yes well kempt ATTITUDE: Yes calm and Yes engaged Skin: COMMON NORMALS: no rashes or lesions noted and no jaundice GENERAL SKIN EXAM: no rashes or lesions noted Data : 12/25/20 05:50 12/25/20 05:50 A&P Assessment and plan (1) Gross hematuria: Etiology unclear. Worrisome for possible TCCA of the left collecting system although no clear soft tissue density could be identified on recent CT scan prior to gross hematuria. Urine is clearing somewhat but still having obstructive type pain and there is contrast retained in the ureter. Cystoscopy, left: Retrograde ureteroscopy stent this afternoon. Status: Acute (2) Urine extravasation: Most likely forniceal rupture secondary to high-grade obstruction from acute bleeding and blood clot plugging the left ureter. Status: Acute (3) Acute flank pain: Renal colic from obstructive process from acute bleeding and blood clots Status: Acute (4) Hydronephrosis, left: Secondary to obstructing blood clot Persistent. Status: Acute (5) Filling defect on imaging study: Most consistent with blood clot in the renal pelvis. Could not rule out possibility of TCCA mass but given no evidence of this less than 2 months ago I think that is unlikely. Acute bleed explains it much better Source of bleeding is still unclear though. Status: Acute (6) Smoker unmotivated to quit: Status: Acute Attestations Medical Necessity Statement*: To surgery this afternoon. Still requiring parenteral pain medication. 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
[2020-12-25] MEDS: ipratropium-albuterol 3 mL Neb INHALATION ×2 (08:43→20:44)
[2020-12-25] MEDS: budesonide 0.5 mg/2 mL Neb INHALATION (08:43)
[2020-12-25] MEDS: insulin lispro 100 unit/1 mL SUBCUT (09:11)
[2020-12-25] MEDS: pantoprazole DR 40 mg Tablet PO (09:12)
--- NOTE | 2020-12-25 11:15 | PM.PN ---
Subjective Subjective: Interval history: Patient was seen and examined this morning, he is complaining of left lower quadrant pain, renal colic Gross hematuria Afebrile Worsening of leukocytosis N.p.o. after 7 AM awaiting further procedure Vitals/I&O/Wt Last Vital Signs Temp 97.9 F 12/25/20 07:16 Pulse 69 12/25/20 08:43 Resp 18 12/25/20 08:43 BP 125/72 12/25/20 07:16 Pulse Ox 97 12/25/20 08:43 12/24/20 12/25/20 12/25/20 22:59 06:59 14:59 Intake Total 50 / 50 1000 / 1050 Output Total 200 / 600 200 / 200 Balance 50 / -350 800 / 450 -200 / -200 Weight last 48 hrs Weight 68.039 kg Weight 68.039 kg Physical Exam Narrative: EXAM NARRATIVE: Patient was laying supine Abdomen is soft no signs of peritonitis S1, S2 Saturating well on room air Looks dehydrated EOMI, PERRLA Data : 12/25/20 05:50 12/25/20 05:50 Micro: Microbiology 12/23/20 23:31 Urine Culture - Preliminary Urine,Clean Catch A&P Assessment and plan (1) Urine extravasation: Status: Acute (2) Filling defect on imaging study: Status: Acute (3) Hydronephrosis, left: Status: Acute (4) Acute flank pain: Status: Acute (5) Gross hematuria: Status: Acute (6) Smoker unmotivated to quit: Status: Acute (7) Chronic hypertension: Status: Acute (8) Arthritis, rheumatoid: Status: Acute (9) COPD (chronic obstructive pulmonary disease): Status: Acute (10) Sepsis: Status: Acute Additional A&P Information Sepsis Criteria met with fever and leukocytosis Hemodynamically stable I started him on ceftriaxone at the time of admission Currently on maintenance fluids No signs of acidosis Persistent gross hematuria Plan for urological intervention today Creatinine is normal Appreciate urology recommendation Concern for transitional cell cancer question is a smoker hemoglobin stable Abnormal transaminases Gallbladder and bile ducts: Continued moderate intrahepatic biliary ductal dilatation. Interval increase in the dilatation of the proximal CBD from 1.6 cm in oblique width on coronal images to 2.1 cm. Still no calcified stones in the gallbladder or CBD No signs of liver mass Calcification noted normal liver, lungs No obvious pancreatic mass however 4.4 mm deep pancreatic duct Patient does not complain of right upper quadrant pain N.p.o., start diet after the procedure DVT prophylaxis contraindicated Cardiac diet after the procedure Full code Attestations Medical Necessity Statement*: Continue medical management, change to inpatient Time Spent in Patient Care: 16 - 35 minutes Coding Level of Care Code Acute Management Services Technician for [facility] Fwd Diagnoses Urine extravasation R39.0 Filling defect on imaging study R93.89 Hydronephrosis, left N13.30 Acute flank pain R10.9 Gross hematuria R31.0 Smoker unmotivated to quit F17.200 Chronic hypertension I10 Arthritis, rheumatoid M06.9 COPD (chronic obstructive pulmonary disease) J44.9 Sepsis A41.9
[2020-12-25 11:53] LABS: Procalcitonin 0.14 ng/mL (0-0.5)
[2020-12-25 11:55] LABS: Glucose Point of Care 123 mg/dL (70-110)
--- NOTE | 2020-12-25 12:30 | SC_ITS ---
WS: [id number] Exam: C-arm FL for Urology Date/Time of Exam: 12/25/2020 12:30 PM Reason For Exam: LEFT KIDNEY OBSTRUCTION Limited anterior-posterior C-arm images of the left abdomen and pelvis are submitted for evaluation. A retrograde pyelogram appears to show some extrinsic compression along the left ureter at about the level of the sacrum. Opacification of the renal pelvis shows no sign of significant obstruction. A gu idewire and ureteroscope are visualized near the ureteropelvic junction. The remaining opacified uret er is unremarkable. No other significant finding on this limited series.
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
[2020-12-25] MEDS: levofloxacin-dextrose 5 % 500 MG/100 ML PREMIX 100 MG IV (13:03)
--- NOTE | 2020-12-25 13:08 | PC.CHAP ---
Pastoral Care Encounter/Spiritual Assessment Type of Contact [] Declined aircraft instrument repairer visit [] Patient/Family/Request visit [] Outpatient visit [xx] Follow-up visit [] Physician referral [] Code/Alert [xx] Routine visit [] Staff referral [] Actively dying [] Patient sleeping [] Family support [] [] Out of room [] Palliative care [] [] Receiving care in room [] Pre-surgical visit [] Trauma [] Long length of stay [] ICU visit [] Other: Relational/Emotional Strength [xx] Patient feels connected with others/family/visitors/staff [] Distress [] Loneliness/isolation [] Abandonment Spirituality of Patient [xx] Person of Latoya [xx] Attends Alevism of their Latoya [xx] Believes in Prayer [] Reads Bible or Synagogue materials [] There are Spiritual issues to be addressed Log Manager Interventions [x] Prayer [xx] Active listening [xx] Non-anxious presence [] Spiritual/emotional support [] Crisis/trauma care [] Spiritual counseling [] Bereavement support [] Provided bereavement packet [] Provided Bible/devotional materials [] Provided toy/stuffed animal, coloring book to patient or family member [] Provided Communion [] Anointing/[place] [] Salvation [xx] Completed spiritual assessment [] Other: Impact on Illness or Injury [] Angry [] Fearful [] Anxious [] Often cries [] Exhaustion [] Unable to work [] Unable to attend mormon [] Unable to walk/stand [] Unable to read [] Unable to drive [] Unable to eat/drink [] Unable to sleep [] Unable to be with family [] Patient intubated [xx] Other: worried about grandson Summary Patient is worried more about his 4 year old grandson who lost his hearing after suffering from Covid-19. Boy may need a cochlear implant if his hearing doesn't return soon and this is of great concern to grandpa . Patient is having surgery later today but is not concerned about himself at all. He requested prayer for his grandson. Log Manager complied. Time spent with patient 7 minutes
[2020-12-25] MEDS: iohexol 300 mg/mL 50 mL Btl (OR ONLY) XX (13:15)
--- NOTE | 2020-12-25 14:04 | P.OP_ITS ---
Operative Report Date of procedure: December 25, 2020 Pre-op Diagnosis: Left ureteral obstruction,Left upper urinary tract gross hematuria Post-op Diagnosis: Same Procedure Done: 1. Cystoscopy with left retrograde ureteropyelogram 2. Left flexible ureterorenoscopy 3. Left ureteral stent placement (7 [place]er by 28 cm double-pigtail no string Specimens removed/disposition: Blood clots Pathology: none sent Surgeon: Magdalena Anesthesia: General Estimated blood loss: No significant active bleeding. Old blood only Urine output: Not measured Complications: None Findings: 1. Multiple blood clots in the ureter on retrograde pyelogram as well as in the renal collecting system 2. Large number of clots it could not be completely cleared from the left renal pelvis. Inadequate examination of the upper collecting system to rule out pathology due to the blood clots and bloody urine 3. No clear evidence of extravasation on retrograde ureteropyelogram 4. Left ureteral stent left indwelling 7 Hong Konger by 28 cm double-pigtail without string. Condition: stable Disposition: PACU Brief History: Mr. Melara is a very pleasant 70-year-old white male evaluated last night for left upper urinary tract gross hematuria with clots causing ureteral obstruction. CT scan failed to demonstrate any clear source of the bleeding. The obstruction was high-grade enough to result in extravasation felt to be consistent with forniceal rupture. Has had a difficult time getting his pain controlled even with [id number] IV morphine. It was decided to proceed with cystoscopy retrograde ureteropyelogram ureteroscopy clot evacuation of possible stent. The hope was to be able to clear him up enough to where examination of the upper urinary tract could be performed adequately to rule out or identify significant pathology potentially creating the bleeding. Procedure: After urgent evaluation examination and obtaining of informed consent he was taken to the operating suite on 12/25/2020 where general anesthesia was administered without difficulty after appropriate timeout was performed, SCDs confirmed to be functioning, preoperative antibiotics administered, beta-edwin protocol confirmed. Prepped and draped in usual sterile fashion in dorsolithotomy position paying careful attention to avoiding pressure points. 21 [place]er cystoscope with 30 degree lens was introduced into the urethral meatus and advanced into the bladder to videoscopy. There was some clot in the bladder that was flushed from the bladder. An 8 [place]er cone-tip catheter was intubated to the left ureteral orifice for left retrograde ureteropyelogram demonstrated some filling defects that were mobile in the ureter. The pyelocalyceal system was duct dilated. There was no evidence of extravasation. I could not see any obvious lesions suspicious for TCCA but there were some filling defects more consistent with blood clot. A flexible tip guidewire was then advanced up the left ureter curling in the upper pole calyx. The distal ureter was then dilated with a 15 [place]er 4 cm balloon with no waist at 4 ivory of pressure. A second guidewire was then passed. The first was secured to the drapes as a safety wire and the second was utilized as a working wire. A 7 [place]er flexible ureteroscope was advanced over the guidewire under fluoroscopic guidance up the left ureter. Several clots were identified on passage up to the kidney. The renal pelvis was carefully inspected but it was very difficult to see anything because of a lot of blood clot as expected. Irrigation was conducted through the scope as best as possible putting in sterile water and then pulling back trying to keep the lumen off the renal pelv is wall. About 20 cc of clot was removed but there is still quite a bit and that I could not completely clear. Attempt at thorough inspection of the renal pelvis and calyceal system was only partially successful because of the clot and poor visualization due to bloody urine. Ultimately was felt that further attempts were futile and it was decided to place a stent to help avoid obstruction. Hopefully this would facilitate passive dilation of the ureter as well. The cystoscope was then backloaded over the safety wire and a 7 [place]er by 28 cm double-pigtail stent was advanced over the guidewire through the cystoscope into appropriate position as confirmed via fluoroscopy and cystoscopy. The bladder was drained and the procedure was completed. He tolerated the procedure well without complications and was awakened in the operating room and returned to the recovery room in stable condition. PLANS: 1. Continue palliative care serial labs and inpatient care. 2. He will need a repeat flexible ureteroscopy at some point hopefully with clearing of the collecting system of clot. 3. Stent in place until then 4. Continue to hold aspirin.
--- NOTE | 2020-12-25 14:41 | SUR.PHASEI ---
1432PT AWAKE ALERT NOT WHEEZING NOW, PT ON 4LNC SATS 95% PT LUNGS CLEAR UPPER LOBES DIMINISHED LOWER BILAT WITH SLIGHT EXP WHEEZE, MUCH IMPROVED FROM PRE TREATMENT, ALREADY TALKED WITH DR MORGAN AND BACK UP IN ROOM, REPORT TO JESU MATSON ON FLOOR. PT TAKING ICE CHIPS
--- NOTE | 2020-12-25 16:44 | ANE.PACU2 ---
Inpatient post-anesthesia follow up: Airway intact: Yes Vital signs: Temperature 100 F Pulse Rate 76 Respiratory Rate 18 Blood Pressure 151/76 Pulse Oximetry 96 Oxygen Delivery Me thod Nasal Cannula Oxygen Flow Rate 5 Fraction of Inspir ed Oxygen Hydration adequate: Yes Nausea and vomiting: No Pain level: 2 Mental status: Baseline
[2020-12-25 17:32] LABS: Glucose Point of Care 179 mg/dL (70-110)
--- NOTE | 2020-12-25 23:58 | PC.NURSE ---
prn pain medical staff services manager for primary nurse
[2020-12-26] VITALS (24 sets, daily range): BP systolic 99–158; BP diastolic 63–76; PULSE 64–90; RESP 14–24; TEMP 36.5–37; O2SAT 92–99
[2020-12-26] MEDS: morphine 4 mg/mL SDV 1 mL 2 MG IVP ×6 (01:22→14:40)
[2020-12-26] MEDS: ipratropium-albuterol 3 mL Neb INHALATION ×4 (03:54→20:27)
[2020-12-26 06:39] LABS: Basophils % 0.1 %; Hemoglobin 11.1 g/dL (11.7-16.6); Lymphocytes # 1.3 10^3/uL (0.8-4.8); Lymphocytes % 10.5 %; Mean Corpuscular HGB Conc 31.7 g/dL (30.0-36.0); Mean Corpuscular Hemoglobin 31.7 pg (28.0-34.0); Monocytes % 7.6 %; Neutrophils # 10.39 10^3/uL (1.8-7.7); Neutrophils % 81.3 %; Nucleated Red Blood Cells % 0 %; Platelet Count 180 10^3/cmm (130-400); Red Cell Distribution Width 13.7 % (12.1-15.1); White Blood Count 12.8 10^3/uL (4.0-10.0)
[2020-12-26 06:59] LABS: Alanine Aminotransferase 71 U/L (0-41); Albumin Level 3.1 g/dL (3.5-5.2); Alkaline Phosphatase 169 IU/L (40-130); Anion Gap 16.7 (5-19); Aspartate Amino Transferase 49 U/L (0-40); Blood Urea Nitrogen 18 mg/dL (8-23); Calcium 8.7 mg/dL (8.5-10.5); Carbon Dioxide 25 mmol/L (22-29); Chloride 98 mmol/L (98-107); Globulin 3.2 g/dL (1.3-4.6); Glucose 128 mg/dL (65-115); Osmolality Calculated 284 mOsm/kg (285-295); Potassium 4.7 mmol/L (3.5-5.1); Sodium 135 mmol/L (136-145); Total Bilirubin 0.4 mg/dL (0.15-1.2); Total Protein 6.3 g/dL (6.6-8.7)
[2020-12-26] MEDS: insulin lispro 100 unit/1 mL SUBCUT ×2 (08:38→12:10)
--- NOTE | 2020-12-26 09:03 | P.PN_ITS ---
Subjective Subjective: Interval history: Urology follow-up: Postop day #1 cystoscopy, left retrograde, ureteroscopy, clot evacuation from renal pelvis. Still too much blood despite the above to be able to visualize the entire renal pelvis and collecting system. A stent was left indwelling with the hopes of reducing his obstructive pain from clots, help facilitate passive dilation for clot passage as well as further endoscopy later date after hopefully spontaneous clearing. Still having a lot of pain but not nearly as bad as it was preoperatively. Reviewed conversion to oral pain medication. No fever or chills. Discussed discharge planning. Primary focus will be adequate pain control in the absence of severe bleeding to allow oral medication for pain at home. Vitals/I&O/Wt Last Vital Signs Temp 97.8 F 12/27/20 08:00 Pulse 74 12/27/20 08:00 Resp 18 12/27/20 08:00 BP 186/93 12/27/20 08:00 Pulse Ox 97 12/27/20 08:00 12/26/20 12/27/20 12/27/20 22:59 06:59 14:59 Intake Total 200 / 1320 1156.667 / 2476.667 50 / 50 Output Total 400 / 1200 775 / 775 Balance -200 / 120 1156.667 / 1276.667 -725 / -725 Physical Exam Const: COMMON NORMALS: no acute distress, alert and well nourished GENERAL APPEARANCE: well kempt and well developed ORIENTATION/CONSCIOUSNESS: not confused HENMT: COMMON NORMALS: normocephalic and atraumatic HEAD & SCALP: normocephalic and atraumatic Eye: COMMON NORMALS: conjunctivae normal and no scleral icterus CONJUNCTIVA: Yes conjunctivae normal Neck/C-Spine: COMMON NORMALS: full ROM GENERAL: Yes normal visual inspection Resp: COMMON NORMALS: normal respiratory effort EFFORT & INSPECTION: No labored and No Actively coughing GI: COMMON NORMALS: Soft to palpation and no masses PALPATION: Yes Soft to palpation Neuro: SENSORIUM/ORIENTATION: Yes alert Psych: COMMON NORMALS: mental status grossly normal APPEARANCE: Yes grossly normal and Yes well kempt ATTITUDE: Yes calm and Yes engaged Skin: COMMON NORMALS: no rashes or lesions noted and no jaundice GENERAL SKIN EXAM: no rashes or lesions noted Data : 12/27/20 05:39 12/27/20 05:39 Micro: Microbiology 12/26/20 19:16 Blood Culture - Preliminary Blood SPECIMEN COLLECTED 12/26/20 16:00 Blood Culture - Preliminary Blood SPECIMEN COLLECTED 12/23/20 23:31 Urine Culture - Final Urine,Clean Catch A&P Assessment and plan (1) Gross hematuria: Etiology unclear. Clearly is coming from the left upper urinary tract with significant enough bleeding to create a large clot in the renal pelvis. Some of that was cleared yesterday but could not get enough cleared in order to thoroughly evaluate the collecting system. Plan was to continue him off of his aspirin, give him time to clear the clots and then reevaluate with the endoscopy Status: Acute (2) Acute flank pain: Renal colic secondary to obstruction of the left ureter from blood clots. Status: Acute (3) Urine extravasation: Yesterday's retrograde failed to show any persistent extravasation. This would fit the picture of most likely cause of extravasation being high- grade obstruction with forniceal rupture which can be conservatively managed. Status: Acute (4) Filling defect on imaging study: Consistent with blood clot. Status: Acute (5) Hydronephrosis, left: Status: Acute Attestations Medical Necessity Statement*: See attending. Still requiring parenteral pain medication Coding Level of Care Code Acute Railroad Signal Operator for Heidy Herrera Diagnoses Gross hematuria R31.0 Acute flank pain R10.9 Urine extravasation R39.0 Filling defect on imaging study R93.89 Hydronephrosis, left N13.30
[2020-12-26 09:22] LABS: Glucose Point of Care 146 mg/dL (70-110)
[2020-12-26] MEDS: sodium chloride 0.9% 1,000 ML 50 ML IV (11:25)
[2020-12-26 11:37] LABS: Glucose Point of Care 194 mg/dL (70-110)
[2020-12-26] MEDS: oxyCODONE-APAP 5-325 mg Tablet 1 TAB PO (13:01)
--- NOTE | 2020-12-26 15:08 | PM.PN ---
Subjective Subjective: Interval history: Patient is saying that his urine color has slightly improved however persistent hematuria noted Low-grade fever, improved in the morning Leukocytosis improving Patient endorsing feeling slightly better Pleasant no complaints overnight Procedure yesterday Cystoscopy Multiple blood clots in the ureter on retrograde pyelogram as well as in the renal collecting system 2. Large number of clots it could not be completely cleared from the left renal pelvis. Inadequate examination of the upper collecting system to rule out pathology due to the blood clots and bloody urine 3. No clear evidence of extravasation on retrograde ureteropyelogram 4. Left ureteral stent left indwelling 7 [place]ic by 28 cm double-pigtail without stri Vitals/I&O/Wt Last Vital Signs Temp 98.6 F 12/26/20 11:30 Pulse 73 12/26/20 14:33 Resp 24 H 12/26/20 14:40 BP 145/76 12/26/20 11:30 Pulse Ox 98 12/26/20 14:40 12/26/20 12/26/20 12/26/20 06:59 14:59 22:59 Intake Total 480 / 2342.857 7025 / 1120 Output Total 800 / 800 Balance 480 / 919.167 320 / 320 Physical Exam Narrative: EXAM NARRATIVE: Comfortably in his bed Left lower quadrant pain has slightly improved Hematuria however urine looks slightly less darker Abdomen soft S1, S2 EOMI, PERRLA Nonfocal neuro exam Very pleasant and cooperative Saturating well on room air Data : 12/26/20 05:17 12/26/20 05:17 Micro: Microbiology 12/23/20 23:31 Urine Culture - Final Urine,Clean Catch A&P Assessment and plan (1) Sepsis: Status: Acute (2) Filling defect on imaging study: Status: Acute (3) Hydronephrosis, left: Status: Acute (4) Acute flank pain: Status: Acute (5) Gross hematuria: Status: Acute (6) Smoker unmotivated to quit: Status: Acute (7) Arthritis, rheumatoid: Status: Acute (8) Peripheral autonomic neuropathy due to secondary diabetes: Status: Chronic (9) Chronic respiratory failure with hypoxia: Status: Acute Additional A&P Information Sepsis related to UTI Follow-up with urine culture Request blood cultures Leukocytosis improving Low-grade fever Continue ceftriaxone for now Gross hematuria rule out transitional cell carcinoma Please review cystoscopy report done by Dr. Nichols yesterday 12/25 Chronic hypoxic respiratory failure currently doing well on 4 to 5 L nasal cannula Hematuria: DVT prophylaxis contraindicated Hemoglobin is stable Hemodynamically stable Abnormal transaminases Abnormal transaminases however no active signs of gallbladder inflammation, will request gallbladder ultrasound Plan to keep him in the hospital until hematuria resolves and he stays afebrile for 48 hours will discuss with Magdalena before discharge if he is planning for outpatient repeat cystoscopy once hematuria resolves Attestations Medical Necessity Statement*: Continue medical management Time Spent in Patient Care: less than 15 minutes Coding Level of Care Code Acute Cargo Inspector for Chg Fwd Diagnoses Sepsis A41.9 Filling defect on imaging study R93.89 Hydronephrosis, left N13.30 Acute flank pain R10.9 Gross hematuria R31.0 Smoker unmotivated to quit F17.200 Arthritis, rheumatoid M06.9 Peripheral autonomic neuropathy due to secondary diabetes E13.43 Chronic respiratory failure with hypoxia J96.11
[2020-12-26 17:29] LABS: Glucose Point of Care 122 mg/dL (70-110)
[2020-12-26 18:02] LABS: Hepatitis A Antibody IgM Non-Reactive (Nonreactive); Hepatitis B Core AB, Total Non-Reactive (Nonreactive); Hepatitis B Surface Antigen Non-Reactive (Nonreactive); Hepatitis C Virus Antibody Non-Reactive (Nonreactive)
[2020-12-26 18:04] LABS: Hepatitis B Surface AB < 3.5 (11.5-1000)
[2020-12-26] MEDS: oxyCODONE 5 mg IR Tab/Cap 10 MG PO ×2 (18:19→22:27)
--- NOTE | 2020-12-26 19:02 | PC.NURSE ---
Called Dr. Cerna about reading in his note that he was to continue the Rocephin on the this patient but that the order was still on hold so the patient has not been getting it. Dr. Cerna states that he will review the orders and renew it.
--- NOTE | 2020-12-26 19:04 | PC.NURSE ---
Report to Iram MATSON at this time.
[2020-12-26] MEDS: budesonide 0.5 mg/2 mL Neb INHALATION (20:27)
[2020-12-27] VITALS (9 sets, daily range): BP systolic 103–186; BP diastolic 66–93; PULSE 61–91; RESP 17–20; TEMP 36.4–37.1; O2SAT 94–99
[2020-12-27] MEDS: oxyCODONE 5 mg IR Tab/Cap 10 MG PO ×3 (02:32→10:44)
[2020-12-27] MEDS: ipratropium-albuterol 3 mL Neb INHALATION ×2 (02:49→08:00)
[2020-12-27] MEDS: sodium chloride 0.9% 1,000 ML 50 ML IV (06:33)
[2020-12-27 06:42] LABS: Basophils % 0.2 %; Eosinophils # 0.1 10^3/uL (0.0-0.8); Lymphocytes # 1.9 10^3/uL (0.8-4.8); Lymphocytes % 17.6 %; Mean Corpuscular HGB Conc 33.3 g/dL (30.0-36.0); Mean Corpuscular Hemoglobin 32.4 pg (28.0-34.0); Mean Corpuscular Volume 97.3 fl (80-94); Mean Platelet Volume 11.8 fL (7.4-10.4); Monocytes % 9.4 %; Neutrophils % 71.2 %; Nucleated Red Blood Cells % 0 %; Platelet Count 191 10^3/cmm (130-400); Red Blood Count 3.39 10^6/uL (4.1-5.3); Red Cell Distribution Width 13.6 % (12.1-15.1); White Blood Count 10.7 10^3/uL (4.0-10.0)
[2020-12-27 07:06] LABS: Alanine Aminotransferase 47 U/L (0-41); Albumin Level 3.2 g/dL (3.5-5.2); Alkaline Phosphatase 139 IU/L (40-130); Aspartate Amino Transferase 24 U/L (0-40); Blood Urea Nitrogen 15 mg/dL (8-23); Calcium 8.4 mg/dL (8.5-10.5); Carbon Dioxide 26 mmol/L (22-29); Chloride 96 mmol/L (98-107); Glucose 126 mg/dL (65-115); Osmolality Calculated 274 mOsm/kg (285-295); Sodium 131 mmol/L (136-145); Total Bilirubin 0.3 mg/dL (0.15-1.2); Total Protein 6.2 g/dL (6.6-8.7)
[2020-12-27 07:14] LABS: Anion Gap 12.7 (5-19); Potassium 3.7 mmol/L (3.5-5.1)
[2020-12-27] MEDS: budesonide 0.5 mg/2 mL Neb INHALATION (08:00)
[2020-12-27] MEDS: insulin lispro 100 unit/1 mL SUBCUT (08:49)
[2020-12-27] MEDS: sennosides-docusate Tablet 1 TAB PO (08:49)
[2020-12-27] MEDS: pantoprazole DR 40 mg Tablet PO (08:51)
[2020-12-27] MEDS: cefTRIAXone 1,000 MG in sodium chloride 0.9% (plus) 50 ML 100 MG IV (10:46)
--- NOTE | 2020-12-27 12:36 | P.PN_ITS ---
Subjective Subjective: Interval history: Hematuria persistent No significant clot noticed by the nursing staff overnight Afebrile Urine culture sterile Leukocytosis improving Dr. Nichols is planning to do another cystoscopy once his hematuria improves because collecting system was not able to be visualized because of profound bleeding, concern for transitional cell carcinoma Hemoglobin stable, patient has stayed hemodynamically stable Left lower quadrant pain has improved, colicky pain slight improvement Vitals/I&O/Wt Last Vital Signs Temp 97.8 F 12/27/20 08:00 Pulse 74 12/27/20 08:00 Resp 18 12/27/20 08:00 BP 186/93 12/27/20 08:00 Pulse Ox 97 12/27/20 08:00 12/26/20 12/27/20 12/27/20 22:59 06:59 14:59 Intake Total 200 / 1320 1156.667 / 2476.667 50 / 50 Output Total 400 / 1200 775 / 775 Balance -200 / 120 1156.667 / 1276.667 -725 / -725 Physical Exam Narrative: EXAM NARRATIVE: Comfortable, supine Left lower quadrant pain improved Hemoglobin is stable S1, S2 Saturating well on 4 L nasal cannula Abdomen soft no signs of peritonitis Lower extremity no edema EOMI, PERRLA nonfocal neuro exam Data : 12/27/20 05:39 12/27/20 05:39 Micro: Microbiology 12/26/20 19:16 Blood Culture - Preliminary Blood SPECIMEN COLLECTED 12/26/20 16:00 Blood Culture - Preliminary Blood SPECIMEN COLLECTED 12/23/20 23:31 Urine Culture - Final Urine,Clean Catch A&P Assessment and plan (1) Sepsis: Status: Acute (2) Urine extravasation: Status: Acute (3) Filling defect on imaging study: Status: Acute (4) Hydronephrosis, left: Status: Acute (5) Acute flank pain: Status: Acute (6) Gross hematuria: Status: Acute (7) COPD (chronic obstructive pulmonary disease): Status: Acute (8) Smoker unmotivated to quit: Status: Acute (9) Chronic respiratory failure with hypoxia: Status: Acute (10) Peripheral autonomic neuropathy due to secondary diabetes: Status: Chronic Additional A&P Information Persistent hematuria Sepsis: Resolved, met criteria at admission There was concern for UTI and pyelonephritis however I do believe this is mild bleeding which was seen as contrast extravasation around the collecting system, repeat KUB did show retention of contrast however contrast extravasation amount has not significantly increased Concern for transitional cell cancer Cystoscopy done on 12/25, plan to do another cystoscopy once hematuria has resolved to better visualize collecting renal system and biopsy, patient is sti ll having persistent hematuria no significant clot formation overnight Hemodynamically stable Afebrile Leukocytosis improved I would continue ceftriaxone for next 48 hours, cultures are sterile He has history of BPH No previous history of cancer Abdominal aortic aneurysm: No signs of dissection, no significant change in dimensions, no acute rupture Abnormal transaminases: He does have some pertinent changes seen on CT abdomen pelvis however no active signs of cholecystitis, transaminases are trending down, he has stayed afebrile, will follow up with gallbladder ultrasound today, hepatitis panel negative, nonicteric, Chronic hypoxic respiratory failure currently doing well on 4 L nasal cannula Not motivated to quit at this point Diabetes with peripheral neuropathy No acute exacerbation Consistent carb diet Sliding scale DVT prophylaxis contraindicated Attestations Medical Necessity Statement*: We will follow up with Dr. Nichols,, continue medical management Time Spent in Patient Care: less than 15 minutes Coding Level of Care Code Acute Commercial Loan Manager for Chg Fwd Diagnoses Sepsis A41.9 Urine extravasation R39.0 Filling defect on imaging study R93.89 Hydronephrosis, left N13.30 Acute flank pain R10.9 Gross hematuria R31.0 COPD (chronic obstructive pulmonary disease) J44.9 Smoker unmotivated to quit F17.200 Chronic respiratory failure with hypoxia J96.11 Peripheral autonomic neuropathy due to secondary diabetes E13.43
--- NOTE | 2020-12-27 13:03 | PM.PN ---
Subjective Subjective: Interval history: Urology follow-up: Postop day #2 left ureteroscopy stent placement Feels much better today. Marked improvement in pain on the oxycodone. Urine still bloody but passing it well without clot retention symptoms. No fever or chills. Appetite has been good and has been able hold his fluid and food down without difficulty. He would like to go home. I think that is reasonable. We will plan on seeing him back on 12/30/2020 and tentatively plan for repeat ureteroscopy sometime the first week in January. He has been instructed on activity limitations, holding aspirin, avoiding NSAIDs, drinking a lot of fluids, and calling for worsening symptoms. Vitals/I&O/Wt Last Vital Signs Temp 97.8 F 12/27/20 08:00 Pulse 74 12/27/20 08:00 Resp 18 12/27/20 08:00 BP 186/93 12/27/20 08:00 Pulse Ox 97 12/27/20 08:00 12/26/20 12/27/20 12/27/20 22:59 06:59 14:59 Intake Total 200 / 1320 1156.667 / 2476.667 50 / 50 Output Total 400 / 1200 775 / 775 Balance -200 / 120 1156.667 / 1276.667 -725 / -725 Physical Exam Const: COMMON NORMALS: no acute distress, alert and well nourished GENERAL APPEARANCE: well kempt and well developed ORIENTATION/CONSCIOUSNESS: not confused HENMT: COMMON NORMALS: normocephalic and atraumatic HEAD & SCALP: normocephalic and atraumatic Eye: COMMON NORMALS: conjunctivae normal and no scleral icterus CONJUNCTIVA: Yes conjunctivae normal Neck/C-Spine: COMMON NORMALS: full ROM GENERAL: Yes normal visual inspection Resp: COMMON NORMALS: normal respiratory effort EFFORT & INSPECTION: No labored and No Actively coughing Neuro: SENSORIUM/ORIENTATION: Yes alert Psych: COMMON NORMALS: mental status grossly normal, Normal thought process present, cooperative and normal affect APPEARANCE: Yes grossly normal and Yes well kempt ATTITUDE: Yes calm and Yes engaged THOUGHT PROCESS: Normal thought process present Skin: COMMON NORMALS: no rashes or lesions noted and no jaundice GENERAL SKIN EXAM: no rashes or lesions noted Data : 12/27/20 05:39 12/27/20 05:39 Micro: Microbiology 12/26/20 19:16 Blood Culture - Preliminary Blood SPECIMEN COLLECTED 12/26/20 16:00 Blood Culture - Preliminary Blood SPECIMEN COLLECTED 12/23/20 23:31 Urine Culture - Final Urine,Clean Catch A&P Assessment and plan (1) Gross hematuria: Tentative plan for repeat ureteroscopy first week in January. I think he is good enough for discharge today. We will plan on follow-up on 12/30/2020. Stay off of aspirin NSAIDs etc. Reviewed with him that we still do not have a definitive diagnosis as to why he had the bleeding. Needs repeat in investigation Status: Acute (2) Acute flank pain: Renal colic secondary to obstruction of the left ureter from blood clots. Marked improvement on postop day #2 stent placement. Still having gross hematuria but no trouble with clots. Status: Acute (3) Urine extravasation: Could no longer identified on retrograde pyelogram at ureteroscopy/retrograde on 12/25/2020. Status: Acute (4) Filling defect on imaging study: Consistent with blood clot. Status: Acute (5) Hydronephrosis, left: Improved obstructive symptoms. Status: Acute Attestations Medical Necessity Statement*: See attending. I think he is ready for discharge today. Coding Level of Care Code Acute Manufacturing Cost Estimator for Heidy Herrera Diagnoses Gross hematuria R31.0 Acute flank pain R10.9 Urine extravasation R39.0 Filling defect on imaging study R93.89 Hydronephrosis, left N13.30
--- NOTE | 2020-12-27 13:30 | PM.DCS ---
Discharge Providers Date of Admission: 12/25/20 10:19 Date of Discharge: December 27, 2020 Attending Provider at Admission: Traci Damon MD Attending Provider at Discharge: Neo Cerna MD Primary Care Provider: Mainor Boyce MD Diagnoses at Discharge Discharge Diagnosis (1) Gross hematuria: Status: Acute (2) Acute flank pain: Status: Acute (3) Urine extravasation: Status: Acute (4) Filling defect on imaging study: Status: Acute (5) Hydronephrosis, left: Status: Acute Reason for Visit Reason for Visit: Peeing Blood\Pain Hospital Course Hospital Course Hospital course by Dr. Damon History of Present Illness Albert Melara is a 70 year old male with PMH COPD, 02 dependent presenting with hematuria that started around 7 pm last evening. no H/o trauma. No h/o precedding symptoms of fever, chills, dysuria. This is first episode. No h/o malignancy. Reports passage of bright red blood with clots. Overnight with clots had feeling or urinary retention, however this has since cleared this morning. he is able to urinate in urinal. Hospital course Patient was admitted for management of hematuria and severe left renal colicky pain. I did review CT scan findings with the radiologist, spontaneous hematoma around renal collecting system, aortic dissection seems chronic, no acute change in dimension or worsening of dissection, no extravasation of contrast through the aneurysm,, & there is extravasation of contrast consistent with mild perinephric bleeding which has stopped, there is no flow of contrast in the ureter which is consistent with obstruction KUB was done twice by Dr. Nichols which did not show worsening of extravasation of the contrast, it did show retention of the contrast consistent with obstruction related to the hematoma Dr. Nichols did the following procedure on 12/25 1. Cystoscopy with left retrograde ureteropyelogram 2. Left flexible ureterorenoscopy 3. Left ureteral stent placement (7 Mongolian by 28 cm double-pigtail no string After his procedure he was experiencing persistent hematuria however no active clots were noticed by the nursing staff. He was able to void without the help of Flores catheterization. Dr. Nichols is planning to see him back in his clinic on 12/30, he will need cystoscopy once his hematuria improves to better visualize renal collecting system and do biopsy. Transitional cell cancer needs to be ruled out for the spontaneous hematoma. Patient does have opioids at home. Patient remained hemodynamically stable, H&H stable. Discontinued aspirin, added Flomax Physical Exam Narrative: EXAM NARRATIVE: Comfortable, supine Left lower quadrant pain improved Hemoglobin is stable S1, S2 Saturating well on 4 L nasal cannula Abdomen soft no signs of peritonitis Lower extremity no edema EOMI, PERRLA nonfocal neuro exam Discharge Data Data Completed and Pending: Completed Studies During Hospitalization Category Date Time Status CT abdomen pelvis w con* [id number] Urge nt Cat Scan 12/23/20 21:[address] angio chest w abd pel w con Urge nt Cat Scan 12/24/20 01:03 Completed XR KUB [id number] Rout ine Exams 12/24/20 11:56 Completed XR KUB [id number] Rout ine Exams 12/25/20 05:00 Completed Pending at discharge Category Date Time Status Basic Metabolic P loan AM LABS Lab 12/28/20 04:00 Ordered Blood Culture Sta t Lab 12/26/20 19:16 Results Complete Blood Co unt w/Auto AM LABS Lab 12/28/20 04:00 Ordered Lactate (Lactic A misa level) AM LABS Lab 12/28/20 04:00 Ordered Procalcitonin AM LABS Lab 12/28/20 04:00 Ordered Labs from last 24 hours 12/27/20 12/27/20 12/26/20 05:39 05:39 17:18 WBC 10.7 H RBC 3.39 L Hgb 11.0 L Hct 33.0 L MCV 97.3 H MCH 32.4 MCHC 33.3 D RDW 13.6 Plt Count 191 MPV 11.8 H Neut % (Auto) 71.2 Lymph % (Auto) 17.6 [place] % (Auto) 9.4 Eos % (Auto) 1.0 Baso % (Auto) 0.2 Neut # (Auto) 7.60 Lymph # (Auto) 1.9 [place] # (Auto) 1.0 H Eos # (Auto) 0.1 Baso # (Auto) 0.0 Nucleated RBC % (a uto) 0 Nucleated RBCs # 0.0 Sodium 131 L Potassium 3.7 Chloride 96 L Carbon Dioxide 26 Anion Gap 12.7 BUN 15 Creatinine 0.5 L GFR Calculation Not Reportable Glucose 126 H POC Glucose 122 H Calculated Osmolal ity 274 L Calcium 8.4 L Total Bilirubin 0.3 AST 24 ALT 47 H Alkaline Phosphata se 139 H Total Protein 6.2 L Albumin 3.2 L Globulin 3.0 Hepatitis A IgM Ab Hep Bs Antigen Hep Bs Antibody Hep B Core Total A b Hepatitis C Antibo dy 12/26/20 16:00 WBC RBC Hgb Hct MCV MCH MCHC RDW Plt Count MPV Neut % (Auto) Lymph % (Auto) [place] % (Auto) Eos % (Auto) Baso % (Auto) Neut # (Auto) Lymph # (Auto) [place] # (Auto) Eos # (Auto) Baso # (Auto) Nucleated RBC % (a uto) Nucleated RBCs # Sodium Potassium Chloride Carbon Dioxide Anion Gap BUN Creatinine GFR Calculation Glucose POC Glucose Calculated Osmolal ity Calcium Total Bilirubin AST ALT Alkaline Phosphata se Total Protein Albumin Globulin Hepatitis A IgM Ab Non-reactive Hep Bs Antigen Non-reactive Hep Bs Antibody < 3.5 L Hep B Core Total A b Non-reactive Hepatitis C Antibo dy Non-reactive Vitals: Last Vital Signs Temp 97.8 F 12/27/20 12:00 Pulse 83 12/27/20 12:00 Resp 17 12/27/20 12:00 BP 146/82 12/27/20 12:00 Pulse Ox 94 12/27/20 12:00 Discharge Plan Discharge Patient Disposition: Home Condition: Stable Prescriptions: New acetaminophen 500 mg tablet 500 mg PO Q6H PRN (Reason: pain) 5 Days Qty: 20 RF: 0 Flomax 0.4 mg capsule 0.4 mg PO DAILY Qty: 20 RF: 0 Continued gabapentin 400 mg capsule 800 mg PO BID RF: 0 Humira Pen 40 mg/0.8 mL pen injector kit 40 mg SUBCUT Q14D RF: 0 folic acid 1 mg tablet 1 mg PO QAM RF: 0 metformin 1,000 mg tablet 1,000 mg PO BID RF: 0 metoprolol tartrate 25 mg tablet 12.5 mg PO BID RF: 0 cholecalciferol (vitamin D3) 125 mcg (5,000 unit) capsule 5,000 unit PO QAM RF: 0 atorvastatin 80 mg tablet 40 mg PO QPM RF: 0 budesonide [Pulmicort] 0.5 mg/2 mL suspension for nebulization 0.5 mg inhalation BID 30 Days Qty: 120 RF: 3 Perforomist 20 mcg/2 mL solution for nebulization 2 ml inhalation BID 30 Days Qty: 120 RF: 3 revefenacin 175 mcg/3 mL solution for nebulization 175 mcg inhalation DAILY 30 Days Qty: 90 RF: 0 oxycodone-acetaminophen [Percocet] 10-325 mg tablet 1 tab PO QID PRN (Reason: pain) 30 Days Qty: 120 RF: 0 oxycodone-acetaminophen [Percocet] 10-325 mg tablet 1 tab PO QID PRN (Reason: pain) 30 Days Qty: 120 RF: 0 Galzin 25 mg (zinc) capsule 25 mg PO QPM RF: 0 ascorbate calcium (vitamin C) 500 mg tablet 500 mg PO QPM RF: 0 multivitamin Tablet 1 tab PO DAILY RF: 0 ipratropium-albuterol 0.5 mg-3 mg(2.5 mg base)/3 mL Solution For Nebulization 3 ml INHALATION QID PRN (Reason: Shortness Of Breath) RF: 0 azithromycin 250 mg Tablet 250 mg PO .ON MON,WED,FRI RF: 0 methotrexate sodium 2.5 mg Tablet 15 mg PO Q7D RF: 0 Nitrostat 0.4 mg Tablet, Sublingual 0.4 mg SUBLINGUAL Q5M PRN (Reason: Chest Pain) RF: 0 albuterol sulfate 90 mcg/actuation Hfa Aerosol Inhaler 2 puff INHALATION Q4H PRN (Reason: Shortness Of Breath) RF: 0 lisinopril 40 mg Tablet 20 mg PO QPM RF: 0 guaifenesin 400 mg Tablet 400 mg PO BID RF: 0 Protonix 40 mg tablet,delayed release (DR/EC) 40 mg PO DAILY RF: 0 Discontinued aspirin 325 mg tablet 325 mg PO QPM RF: 0 Discharge Orders: Discharge Order (Routine); Ordered 12/27/20 Ordered By: Bassem Nichols Referrals: Bassem Nichols MD [Physician] - 12/30/20 (Postoperative follow-up. Please call tomorrow for the time. ) Mainor Boyec MD [Primary Care Provider] - 7-10 days (Please call Monday for a post hospital follow up appointment. ) Discharge Diet: Advance as tolerated Discharge Activity: Resume usual activity and Limit activity as instructed Patient Instructions: Acetaminophen (By mouth), Hematuria - Male, Hematuria (ED), Flank Pain (ED), Opioid Safety Activity Restrictions/Additional Instructions: Our child welfare caseworker will have you follow-up with Ree Nichols in the next few days. You would be expected to have a phone call with our child welfare caseworker who will put you on the schedule. UROLOGY instructions: 1. Please drink a lot of fluid to help keep your urine is clear as possible 2. You can expect to continue to see some blood in your urine just because of the stent but hopefully being off of the aspirin will reduce further bleeding and help with time to clear the clots that obscured the investigation of your left kidney. 3. We will follow up on 12/30/2020 for postop check and make some tentative plans for sometime in early January assuming your urine is cleared appropriately to reevaluate with ureteroscopy. We may require a repeat CT scan prior to that time 4. Typical stent symptoms include urgency, frequency, small voids, occasionally urgent urinary incontinence and flank pain with voiding. These are all normal reactions to the stent. 5. The pain medication that has been prescribed for you should control the bulk of the symptoms. 6. Please do not take any aspirin, Aleve, ibuprofen or any of those types of medications. Tylenol is okay. 7. My office number is [phone]. Please call if you have not heard from us by tomorrow afternoon regarding follow-up visit. Discharge Attestations Time Spent in Discharge Care*: less than 30 min Quality Metrics Clinical Quality Measures During this hospital stay, did patient experience: None Coding Level of Care Code Acute g FW IA note Diagnoses Gross hematuria R31.0 Acute flank pain R10.9 Urine extravasation R39.0 Filling defect on imaging study R93.89 Hydronephrosis, left N13.30
--- NOTE | 2020-12-28 16:53 | PC.RESP ---
Pulmonary Rehab information sent to patient.
== END 2020-12-27 15:59 | disposition home or self-care (01) | DRG 660 ==
LOC: ER 12-24 04:33 → MEDSURG 12-24 05:07
PROVIDERS: Emergency Medicine; Urology; Admitting Provider Student in an Organized Health Care Education/Training Program; Emergency Provider Emergency Medicine; PCP Family Medicine; Visit Provider Internal Medicine
PROC: 0TJB8ZZ Inspection of Bladder, Via Natural or Artificial Opening Endoscopic (ICD-10-PCS; CPT 52000; principal; 2020-12-25 12:30)
PROC: BT1F1ZZ Fluoroscopy of Left Kidney, Ureter and Bladder using Low Osmolar Contrast (ICD-10-PCS; CPT 74420; 2020-12-25 12:30)
PROC: BT1F1ZZ Fluoroscopy of Left Kidney, Ureter and Bladder using Low Osmolar Contrast (ICD-10-PCS; CPT 50605; 2020-12-25 12:30)
PROC: 0TJ98ZZ Inspection of Ureter, Via Natural or Artificial Opening Endoscopic (ICD-10-PCS; CPT 52351; 2020-12-25 12:30)
DX: R31.0 Gross hematuria (principal); R39.0 Extravasation of urine; J96.11 Chronic respiratory failure with hypoxia; F17.210 Nicotine dependence, cigarettes, uncomplicated; M06.9 Rheumatoid arthritis, unspecified; E11.43 Type 2 diabetes mellitus with diabetic autonomic (poly)neuropathy; J44.9 Chronic obstructive pulmonary disease, unspecified; Z99.81 Dependence on supplemental oxygen; I25.10 Atherosclerotic heart disease of native coronary artery without angina pectoris; I10 Essential (primary) hypertension; M54.40 Lumbago with sciatica, unspecified side; N13.30 Unspecified hydronephrosis; Z79.51 Long term (current) use of inhaled steroids; Z79.891 Long term (current) use of opiate analgesic; Z79.84 Long term (current) use of oral hypoglycemic drugs; Z79.4 Long term (current) use of insulin; I71.4 Abdominal aortic aneurysm, without rupture
CPT/HCPCS: 36415; 36416; 71275; 74018; 74177; 76000; 80053; 81001; 82962; 83605; 83690; 84145; 85025; 86705; 86706; 86709; 86803; 87040; 87086; 87340; 94640; 94664; 96361; 96372; 96374; 96375; 96376; 99285; C2625; G0378; J0696; J1100; J1815; J1956; J2270; J2405; J2704; J3010; J7030; J7611; J7626; Q9967

== ENCOUNTER → 2021-01-06 08:23 | Outpatient (BNVA) | payer OTHER, SELFPAY | PROVIDERS: PCP Family Medicine; Visit Provider Nurse Practitioner Family | DX: Z20.822 Contact with and (suspected) exposure to COVID-19 (principal); N13.30 Unspecified hydronephrosis | CPT/HCPCS: 81003; 87635 ==

== ENCOUNTER 2021-01-11 10:38 | Day surgery (SDC) | payer OTHER, SELFPAY ==
[2021-01-08 15:09] VITALS: BMI 20.6
[2021-01-11] VITALS (9 sets, daily range): BP systolic 105–134; BP diastolic 60–82; PULSE 68–87; RESP 14–23; TEMP 36.6–36.9; O2SAT 93–100
--- NOTE | 2021-01-11 | SCC_ITS ---
Procedure Done: 1. Cystoscopy removal of left ureteral stent 2. Left retrograde ureteropyelogram 3. Left ureterorenoscopy, flexible 4. Left ureteral stent replacement (4.5 Amharic by 28 cm double-pigtail WITH string attached distally) string shortened 62.4 seconds of fluoroscopic guidance, for a cumulative dose of 10.82 mGy, was provided to Dr. Nichols by the radiology department. C-arm images of the abdomen were saved for the patient's permanent record. KSENIA
--- NOTE | 2021-01-11 10:48 | SC_ITS ---
WS: [id number] Exam: C-arm FL for Urology Date/Time of Exam: 01/11/2021 10:48 AM Reason For Exam: Left ureteroscopy Anterior posterior intraoperative C-arm images of the left kidney and proximal left ureter are submit digna for evaluation. The images depict contrast opacification of the left renal pelvis. A ureteroscope is noted in place w ithin the renal pelvis. An associated the guidewire is also noted extending into the kidney. A ureter al stent catheter is also noted in the left ureter on several images.
[2021-01-11] MEDS: sodium chloride 0.9% 1,000 ML 30 ML IV (11:29)
[2021-01-11 11:33] LABS: Glucose Point of Care 175 mg/dL (70-110)
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
--- NOTE | 2021-01-11 12:17 | W.PM.OPSUD ---
Surgery/Procedure H&P Update DATE OF PROCEDURE: January 11, 2021 DATE H&P PERFORMED: 01/06/21 H&P UPDATE INFORMATION: I have reviewed H&P completed within last 30 days, I have examined patient prior to procedure, No changes to prior documentation and H&P is in [facility] EMR on date indicated PREOP DIAGNOSIS: Gross hematuria, left upper urinary tract PLANNED PROCEDURE: Operation Date: 01/11/21 12:00 Proposed Procedures p Cystoscopy [id number] N13.30(Not Applicable) - Bassem Nichols MD s Ureteral Stent Exchange(Left) - Bassem Nichols MD s Retrograde Pyelogram(Not Applicable) - MD desi Garcia Ureteroscopy(Not Applicable) - Bassem Nichols MD
[2021-01-11] MEDS: levofloxacin-dextrose 5 % 500 MG/100 ML PREMIX 100 MG IV (12:21)
--- NOTE | 2021-01-11 13:11 | PM.OP ---
Operative Report Date of procedure: January 11, 2021 Pre-op Diagnosis: Gross hematuria, left upper urinary tract Post-op diagnosis: same Post-op Diagnosis: Other than inflammatory changes from stent and recent blood clot I could not find any significant pathology Procedure Done: 1. Cystoscopy removal of left ureteral stent 2. Left retrograde ureteropyelogram 3. Left ureterorenoscopy, flexible 4. Left ureteral stent replacement (4.5 Greenlandic by 28 cm double-pigtail WITH string attached distally) string shortened Pathology: none sent Surgeon: Magdalena Anesthesia: General Estimated blood loss: Minimal Urine output: Not measured Complications: None Findings: No gross pathology identified. There was a little bit of clot remaining in the collecting system that was removed via irrigation. All the calyces were carefully inspected with flexible ureterorenoscopy with the assistance of contrast instilled into the collecting system. Other than some inflammatory changes post stent as well as post clot I could find no clear evidence of any malignant process. There was at least one possibly 2 small calcifications at junction of renal papilla and collecting system in the lower pole. Ureter was inflamed but otherwise negative Condition: stable Disposition: PACU Brief History: Mr. Melraa is a 70-year-old white male recently evaluated for upper urinary tract bleeding on the left leading to clot obstruction of the left collecting system. Review of old CT scans failed to reveal prior to the bleeding any soft tissue mass. Ureteroscopy and renoscopy was performed and a lot of clot was evacuated but nothing close to being able to visualize the collecting system adequately. A stent was placed to relieve obstruction related to the clots and recommendation was made for repeat ureterorenoscopy after clearance of the clots. His aspirin has been held. Procedure: After routine preoperative evaluation examination and obtaining of informed consent he was taken to the operating suite on 01/11/2021 where general anesthesia was administered without difficulty after appropriate timeout was performed, SCDs confirmed to be functioning, preoperative antibiotics administered, beta-edwin protocol confirmed. Prepped and draped in usual sterile fashion in dorsolithotomy position paying careful attention to avoiding pressure points. 21 Greenlandic cystoscope with 30 degree lens was introduced to the urethra meatus and advanced into the bladder to videoscopy. The bladder was systematically examined. No pathology was identified within the bladder other than some mild inflammatory changes related to the stent that was discovered in its expected position. A flexible tip guidewire was then advanced up the left ureter next to the stent into the upper pole calyx and the stent was removed with grasping forceps without difficulty and early uncoiling of the proximal end. A second guidewire was then passed and the first wire was secured to the drapes as a safety wire. The flexible ureterorenoscopy scope which was digital was passed over the second working guidewire and easily up into the renal collecting system. Contrast was injected then through the scope to visualize the collecting system. With careful intentional manipulation of the ureteroscope all the calyces and mucosa of the collecting system was carefully inspected. There were some inflammatory changes consistent with recent stent and some staining of the renal pelvis mucosa from recent bleeding and clot but otherwise no pathology. There was noted 1 or 2 small calcifications adherent to a couple of the collecting ducts in the lower pole renal papilla. No free-floating stones. A small amount of clot was encountered in the upper pole calyx and this was easily flushed free and there is no underlying concern. Once complete inspection was performed the scope was withdrawn under direct vision. There was a little bit of clot in the ureter but this was flushed free and again the ureteral mucosa also looked fine other than some inflammatory changes. The cystoscope was then backloaded over the safety guidewire and a 4.5 Greenlandic by 28 cm double-pigtail stent with string attached distally was advanced over the guidewire through the cystoscope into appropriate position as confirmed via fluoroscopy and cystoscopy. The bladder was drained and the procedure was completed. The string was shortened and not secured to the phallus. He tolerated procedure well without complications and was awakened in the operating room and returned to the recovery room in stable condition. PLANS: 1. Anticipate discharge from outpatient surgery 2. Maintain ureteral stent until Monday. Follow-up clinic visit at that point for stent removal.
--- NOTE | 2021-01-11 13:29 | SUR.PHASEI ---
PT AWAKES NOW ORAL AIRWAY PT VERBALIZED NEEDING TO VOID VSS IV PATENT PT GIVEN URINAL.
--- NOTE | 2021-01-11 14:32 | ANE.PACU2 ---
Inpatient post-anesthesia follow up: Airway intact: Yes Vital signs: Temperature 98.4 F Pulse Rate 83 Respiratory Rate 18 Blood Pressure 134/62 Pulse Oximetry 93 Oxygen Delivery Me thod Nasal Cannula Oxygen Flow Rate 3 Fraction of Inspir ed Oxygen Hydration adequate: Yes Nausea and vomiting: No Pain level: 2 Mental status: Baseline
== END 2021-01-11 14:59 | disposition home or self-care (01) ==
PROVIDERS: PCP Family Medicine; Visit Provider Urology
PROC: 0TJB8ZZ Inspection of Bladder, Via Natural or Artificial Opening Endoscopic (ICD-10-PCS; CPT 52000; principal; 2021-01-11 12:00)
PROC: (CPT 52332; 2021-01-11 12:00)
PROC: (CPT 74420; 2021-01-11 12:00)
PROC: 0TJ98ZZ Inspection of Ureter, Via Natural or Artificial Opening Endoscopic (ICD-10-PCS; CPT 52351; 2021-01-11 12:00)
DX: R31.0 Gross hematuria (principal); N13.30 Unspecified hydronephrosis; J44.9 Chronic obstructive pulmonary disease, unspecified; Z99.81 Dependence on supplemental oxygen; I25.10 Atherosclerotic heart disease of native coronary artery without angina pectoris; I10 Essential (primary) hypertension; K21.9 Gastro-esophageal reflux disease without esophagitis; E11.9 Type 2 diabetes mellitus without complications; F17.210 Nicotine dependence, cigarettes, uncomplicated; Z82.49 Family history of ischemic heart disease and other diseases of the circulatory system; Z83.3 Family history of diabetes mellitus
CPT/HCPCS: 52332; 52351; 36416; 76000; 82962; C2625; J1956; J2370; J2405; J2704; J3010; J7030

== ENCOUNTER → 2021-02-10 10:11 | Outpatient (BNVA) | payer MEDICARE, SELFPAY | PROVIDERS: PCP Family Medicine; Visit Provider Anesthesiology | DX: G89.29 Other chronic pain (principal); M54.40 Lumbago with sciatica, unspecified side; M25.552 Pain in left hip; M25.551 Pain in right hip; F17.200 Nicotine dependence, unspecified, uncomplicated; Z79.891 Long term (current) use of opiate analgesic | CPT/HCPCS: 99214 ==

== ENCOUNTER → 2021-09-03 09:12 | Outpatient (BNVA) | payer OTHER, SELFPAY | PROVIDERS: PCP Family Medicine; Visit Provider Internal Medicine Critical Care Medicine | DX: J44.9 Chronic obstructive pulmonary disease, unspecified (principal); J96.11 Chronic respiratory failure with hypoxia; F17.210 Nicotine dependence, cigarettes, uncomplicated; Z99.81 Dependence on supplemental oxygen | CPT/HCPCS: 99214 ==

== ENCOUNTER → 2022-01-17 09:41 | Outpatient (BNVA) | payer OTHER, SELFPAY | PROVIDERS: PCP Family Medicine; Visit Provider Internal Medicine Pulmonary Disease | DX: J44.9 Chronic obstructive pulmonary disease, unspecified (principal); J96.11 Chronic respiratory failure with hypoxia; F17.210 Nicotine dependence, cigarettes, uncomplicated | CPT/HCPCS: 99214 ==

== ENCOUNTER 2022-05-16 08:11 | Outpatient (CLI) | payer OTHER, MEDICARE, SELFPAY ==
--- NOTE | 2022-05-16 08:35 | NM_ITS ---
WS: [id number] NUCLEAR MEDICINE HIDA SCAN CLINICAL INFORMATION: COMMON BILE DUCT 12MM,INTERMITTENT R UPPER QUAD PAIN TECHNIQUE: Following intravenous administration of mCi of technetium 99m mebrofenin, images of the ab domen were obtained over the course of 60 minutes. Next, gallbladder ejection fraction was determined by obtaining preprandial and one-hour postprandial images of the gallbladder following oral ingestio n of Ensure. COMPARISON: CT abdomen pelvis December 23, 2020 FINDINGS: Heterogeneous liver uptake. Normal hepatic excretion. Gallbladder is visualized by 60 minutes. No darryl dence of acute cholecystitis. Normal common bile duct and small bowel activity. Intrahepatic and comm on bile duct dilatation on the prior CT. Gallbladder ejection fraction 73% within normal limits. No evidence of chronic cholecystitis. NM/NM hepatobiliary w phar* [id number] IMPRESSION: 1. No evidence of acute or chronic cholecystitis. 2. Gallbladder ejection fraction 73% within normal limits. 3. Heterogeneous uptake in the liver. Liver can be further evaluated with cont rast-enhanced CT abdomen pelvis.
--- NOTE | 2022-05-16 08:48 | USCV_ITS ---
Albert Melara Age: 71 Gender: M : 1950 Exam Date: 05/16/2022 09:01 Ordering Phys: Grace Wallis MD Technologist: ELIESER Exam Location: [facility] [place]_ Indication: Follow up US HISTORY: Diameter (cm) AP x Transverse x Length Velocity (cm/s) Waveform Prox Aorta: 1.90 x 2.06 x 56.10 Mid Aorta: 2.18 x 2.46 x 39.60 Distal Aorta: 2.76 x 3.17 x 2.61 35.90 Right Iliac Prox: 0.88 x 1.09 x 66.90 Left Iliac Prox: 0.81 x 1.18 x 58.70 Stent Prox Landing x x Aneurysmal Sac Max x x Lt Lat Sac Dim Rt Lat Sac Dim Stent Dist Landing x x Right Iliac Stent x x Left Iliac Stent x x Right Renal Art Left Renal Art FINDINGS: CONCLUSIONS Abdominal aortic aneurysm measuring 2.7 x 3. 1 x 2.6cm distally Normal common iliac arteries Pete Hassan MD (Electronically Signed) Final Date: 16 May 2022 09:51 S
== END 2022-05-16 08:12 | disposition home or self-care (01) ==
PROVIDERS: PCP Family Medicine; Visit Provider Family Medicine
DX: I71.21 Aneurysm of the ascending aorta, without rupture (principal); R10.11 Right upper quadrant pain
CPT/HCPCS: 78227; 93978; A9537

== ENCOUNTER 2022-06-17 08:10 | Outpatient (CLI) | payer OTHER, SELFPAY ==
--- NOTE | 2022-06-17 08:21 | CT_ITS ---
WS: [id number] CT ABDOMEN, THREE-PHASE. HISTORY: ABNORMAL LIVER Technique: All CT scans at [facility] use at least one of these dose optimization techniques: automated exposure control; mA and/or kV adjustment per patient size (includes targeted exams where dose is matched to clinical indication); or iterative reconstruction. DLP: 588.49 mGy.cm COMPARISON: 12/23/2020, 12/24/2020, 10/23/2015 Severe centrilobular emphysema at the lung bases. Heart is not completely included. Small hiatal joaquina ia. Liver: Liver is normal size. There is extensive intrahepatic and extra hepatic bile duct dilatation. Common bile duct is dilated contiguously through the pancreatic head. CBD through the pancreatic head with diameter of 13.6 mm. Central common bile duct diameter up to 20 mm. Intrahepatic ducts and biliary radicals are dilated. These findings have been present on multiple prior studies with slow increase in duct dilatation over several prior studies. No intraluminal fill ing defect. In the region of the pancreatic head no pancreatic head mass is identified. No stone or a bnormal finding within the ampulla of Vater. Benign calcifications in the LEFT lobe of the liver may be granulomatous. Normal appearance of the portal vein. Hepatic veins are normal. Normal spleen. Pancreatic atrophy. Pancreatic duct is noticeable but measures 2 mm which is not dilat ed. No adrenal mass. Mild cortical thinning of each kidney. RIGHT renal cyst 1.8 cm. Smaller subcorti kobi renal cysts. Moderate atherosclerotic plaque with ectasia abdominal aorta. There is a focal outpo uching of the abdominal aorta below the level of the renal arteries. Maximum transverse diameter of 3 .7 cm. There has been present on prior studies. May be a focal aneurysm or ulcerated plaque or short dissection. No oral contrast was provided for this study. Stomach is distended with fluid. No small bowel obstruc tion. Visualized colon contains increased fecal material. Visualized appendix is negative. No adenopa thy or ascites. CT/CT abdomen wo/w con [id number] IMPRESSION: 1. Moderate progression of intrahepatic and extra hepatic duct dilatation sinc e 10/15/2020. Main common bile duct measures up to 2.0 cm. No intraluminal stone s or mass identified. No pancreatic mass identified. 2. Bile duct dilatation is new since 2015. Consider further evaluation by ERCP to evaluate for stricture or mass at the ampulla of Vater. 3. Moderate atherosclerosis abdominal aorta with a focal ulcerated plaque vers us dissection or saccular aneurysm. Maximum diameter of 3.7 cm in the infrarena l aorta. 4. Severe centrilobular emphysema.
[2022-06-17 08:40] LABS: Blood Urea Nitrogen 11 mg/dL (8-23)
[2022-06-17] MEDS: iohexol 350 mg/mL 500 mL Btl (per mL) IV (09:02)
== END 2022-06-17 08:11 | disposition home or self-care (01) ==
LOC: RAD 08:12
PROVIDERS: PCP Family Medicine; Visit Provider Family Medicine
DX: Q44.7 Other congenital malformations of liver (principal); J43.2 Centrilobular emphysema
CPT/HCPCS: 74170; 82565; 84520; Q9967

== ENCOUNTER 2022-07-05 07:42 | Outpatient (CLI) | payer OTHER, SELFPAY ==
--- NOTE | 2022-07-05 07:52 | CT_ITS ---
WS: [id number] CTA THORACIC AORTA WITH CONTRAST. HISTORY: AAA TECHNIQUE: CTA imaging of the thorax is performed with and without contrast. After noncontrast imagin g is performed, CT angiogram is performed during injection of Omnipaque 350; 100 mL IV.. Sagittal and coronal reconstructions, sagittal and coronal MIP imaging is submitted. All CT scans at [facility] use at least one of these dose optimization techniques: automated exposure control; mA and/or kV adjustment per patient size (includes targeted exams where dose is matched to clinical indication) ; or iterative reconstruction. DLP: 468.26 mGy.cm COMPARISON: 12/24/2020 Moderate atherosclerotic plaque throughout the thoracic aorta. No stenosis. Maximum diameter of the a scending aorta is 3.4 cm. Descending aorta is normal caliber measuring 2.7 cm in diameter. Small amou nt of plaque continues into the proximal great vessels. Great vessels are well-opacified. Suprarenal aorta is normal caliber. Small amount of calcified plaque at the origin of the mesenteric arteries. Pulmonary artery is normal size. No central filling defects. Mild diffuse LEFT ventricular hypertroph y. No pericardial or pleural effusion. Severe hyperexpansion with extensive scarring and fibrosis and bolus disease. Area of increasing cons olidation and soft tissue in the medial RIGHT upper lobe measures 2.2 x 2.2 cm and extends over lengt h of 4.5 cm. There is a additional anterior RIGHT upper lobe new pleural thickening. RIGHT hilar lymph node measures 1.1 x 2.2 cm. Just very slightly increased since the prior study. Marked dilatation of the common bile duct to 2.1 cm through the pancreatic head. The entire pancreati c head is not visualized on this examination. Gallbladder remains present. Very similar findings were noted on the study from 2020. Similar diameter of the gallbladder described on 12/23/2020. CBD dilat ation was recently evaluated by CT on 06/17/2022. CT/CT angio chest [id number] IMPRESSION: 1. Mildly ectatic atherosclerotic thoracic aorta. No thoracic aortic aneurysm. 2. Severe progressive emphysema. 3. New medial RIGHT upper lobe irregular masslike consolidation measuring 2.2 x 2.2 x 4.5 cm. Additional pleural thickening anterior RIGHT upper lobe. Neopla sm is not excluded. Consider follow-up PET/CT imaging. 4. Mildly prominent RIGHT hilar lymph node at 1.1 x 2.2 cm. 5. Continued dilated common bile duct at 2.1 cm which has been previously desc ribed.
[2022-07-05] MEDS: iohexol 350 mg/mL 500 mL Btl (per mL) IV (08:18)
== END 2022-07-05 07:43 | disposition home or self-care (01) ==
LOC: RAD 07:43
PROVIDERS: PCP Family Medicine; Visit Provider Family Medicine
DX: I71.40 Abdominal aortic aneurysm, without rupture, unspecified (principal); I70.0 Atherosclerosis of aorta; J43.9 Emphysema, unspecified; R91.8 Other nonspecific abnormal finding of lung field; R59.0 Localized enlarged lymph nodes
CPT/HCPCS: 71275; Q9967

== ENCOUNTER → 2022-07-18 09:56 | Outpatient (BNVA) | payer OTHER, SELFPAY | PROVIDERS: PCP Family Medicine; Visit Provider Internal Medicine Pulmonary Disease | DX: J44.9 Chronic obstructive pulmonary disease, unspecified (principal); J96.11 Chronic respiratory failure with hypoxia; F17.210 Nicotine dependence, cigarettes, uncomplicated; Z99.81 Dependence on supplemental oxygen | CPT/HCPCS: 99214 ==

== ENCOUNTER 2022-07-23 05:36 | Outpatient (CLI) | payer OTHER, SELFPAY ==
--- NOTE | 2022-07-23 | PETR_ITS ---
PROCEDURE INFORMATION: Exam: PET/CT Skull Base to Mid-thigh Exam date and time: 07/23/2022 8:58 AM Age: 72 years old Clinical indication: Abnormal findings; New medial right upper lobe irregular masslike consolidation measuring 2.2 x 2.2 x 4.5 cm. Additional pleural thickening anterior right upper lobe. Neoplasm is not excluded. Consider follow-. Up pet/ct imaging. Prior surgery; Surgery date: 6+ months; Surgery type: Heart stent; Additional info: Abnormal CT of chest LABS AND CLINICAL REPORTS: Glucose: 123 mg/dl Treatment strategy for malignancy (PET staging): Initial Staging (PI) TECHNIQUE: Imaging protocol: Following at least four-hour fasting and following the injection of radiopharmaceutical, low dose CT images were obtained. Then, PET images were obtained. Attenuation corrected images were constructed using the CT scan. Fused images of PET and CT were reviewed. The standardized uptake values (SUV) reported below are maximum values within a region of interest, expressed in gm/ml. Exam includes orbital meatal line to mid-thigh. Radiopharmaceutical: 14.97 mCi F-18 FDG (Fluorodeoxyglucose), IV. Time of imaging post radiopharmaceutical administration: 1 hour Injection site: Right antecubital COMPARISON: CTA chest 07/05/2022, CT abdomen wo/w con [id number] 06/17/2022 8:44 AM FINDINGS: Brain: Visualized brain has normal physiologic uptake. Pharynx: No abnormal uptake. Larynx: No abnormal uptake. Lungs, pleura and trachea: A region of bandlike streaky a spiculated density extending from the posterosuperior right lung apex pleural surface into the superior right hilar region is noted with low-level uptake, SUV max 3.2 for example on PET series 4, image 47. Extensive bilateral centrilobular emphysematous changes are present. Bandlike streaky density in the anterior left upper lobe is not radiotracer avid. Heart: Normal physiologic uptake. Mediastinal space: No abnormal uptake. Liver: No abnormal uptake. Mild intrahepatic biliary ductal dilatation is noted. Gallbladder and bile ducts: Abnormal dilatation of the common bile duct is again noted. There is uptake along the posterior aspect of the distal common bile duct likely within the proximal right ureter representing normal excretion of radiotracer within SUV max 10.3 on series 4, image 114. Pancreas: No abnormal uptake. Spleen: No abnormal uptake. Adrenal glands: No abnormal uptake. Kidneys and ureters: Normal physiologic uptake. A non radiotracer avid fluid density cyst in the mid right kidney is noted measuring 1.5 cm in diameter. Punctate stones are atherosclerotic calcifications are identified in both kidneys. No hydronephrosis. Stomach and bowel: No abnormal uptake. There are scattered colonic diverticula. Reproductive: Moderate left and small right scrotal hydroceles are noted. No abnormal uptake. Vasculature: No abnormal uptake. There are diffuse atherosclerotic changes including within the coronary arteries. Lymph nodes: Elevated uptake in a spiculated soft tissue density region likely representing a lymph node in the superior right hilar region is noted measuring 2.4 x 2.6 cm on series 3, image 50, SUV max 4.6. Bones/joints: No abnormal uptake in the visualized axial and appendicular skeleton. Degenerative spondylosis within the spine is noted. Soft tissues: No abnormal uptake in the visualized head, neck, chest, abdomen, pelvis, and extremities. METRICS: Mediastinal blood pool: SUV max 1.7 [facility] [id number] IMPRESSION: 1. Abnormal uptake in a prominent superior right hilar region lymph node is noted (SUV max 4.6) concerning for malignancy. 2. Low-level uptake within a region of bandlike spiculated density in the right upper lobe may be related to inflammatory or infectious involvement in a region of scarring although neoplastic involvement cannot be excluded. 3. Persistent dilatation of the common bile duct. Uptake in the region of the distal common bile duct likely represents normal excreted radiotracer in the proximal right ureter located posterior to the distal common bile duct, without a definite radiotracer avid lesion. 4. Simple appearing right renal cyst. 5. Colonic diverticulosis. 6. Additional nonurgent findings as detailed above.
== END 2022-07-23 05:37 | disposition home or self-care (01) ==
LOC: RAD 07-25 05:36
PROVIDERS: PCP Family Medicine; Visit Provider Family Medicine
DX: R93.89 Abnormal findings on diagnostic imaging of other specified body structures (principal); I25.10 Atherosclerotic heart disease of native coronary artery without angina pectoris
CPT/HCPCS: 78815; A9552

== ENCOUNTER → 2022-07-29 13:10 | Outpatient (BNVA) | payer OTHER, SELFPAY | PROVIDERS: PCP Family Medicine; Visit Provider Internal Medicine Pulmonary Disease | DX: R91.1 Solitary pulmonary nodule (principal); J44.9 Chronic obstructive pulmonary disease, unspecified; J96.11 Chronic respiratory failure with hypoxia; F17.210 Nicotine dependence, cigarettes, uncomplicated; Z99.81 Dependence on supplemental oxygen | CPT/HCPCS: 36415; 99214 ==

== ENCOUNTER 2022-10-22 05:31 | Outpatient (CLI) | payer OTHER, SELFPAY ==
--- NOTE | 2022-10-22 08:00 | PETR_ITS ---
PROCEDURE INFORMATION: Exam: PET/CT Skull Base to Mid-thigh Exam date and time: 10/22/2022 9:04 AM Age: 72 years old Clinical indication: Abnormal findings; Abnormal uptake in a prominent superior right hilar region lymph node. Is noted (suv max 4.6) concerning for malignancy. Prior surgery; Surgery date: 6+ months; Surgery type: Heart stent; Additional info: Right hilar lymph node suv max 4.6 concerning for malignancy LABS AND CLINICAL REPORTS: Glucose: 144 mg/dl Treatment strategy for malignancy (PET staging): Initial Staging (PI) TECHNIQUE: Imaging protocol: Following at least four-hour fasting and following the injection of radiopharmaceutical, low dose CT images were obtained. Then, PET images were obtained. Attenuation corrected images were constructed using the CT scan. Fused images of PET and CT were reviewed. The standardized uptake values (SUV) reported below are maximum values within a region of interest, expressed in gm/ml. Exam includes orbital meatal line to mid-thigh. Radiopharmaceutical: 11.86 mCi F-18 FDG (Fluorodeoxyglucose), IV. Time of imaging post radiopharmaceutical administration: 1 hour Injection site: Right antecubital vein COMPARISON: PT PET [facility] INITIAL [id number] 07/23/2022, CTA chest 07/05/2022 and 12/24/2020 FINDINGS: Brain: Visualized brain has normal physiologic uptake. Pharynx: No abnormal uptake. Larynx: No abnormal uptake. Lungs, pleura and trachea: Moderate size cluster of peribronchial opacity posteriorly in the right upper lobe new since 07/23/2022 suggestive of pneumonia measures up to 3.4 SUV (series 3 images 50-54). Dense perihilar opacity anteriorly in the right upper lobe (series 3 image 48-52) measures 3.3 SUV decreased from 4.6 SUV on the prior exam suggestive of residual inflammatory finding morphologically stable area of fibrosis in the left upper lobe shows low-grade uptake of 1.7 SUV stable since prior exam. There are stable small foci of subpleural scarring in bilateral lung apices posteriorly with no abnormal FDG uptake. There is stable severe paraseptal emphysema in bilateral lung apices and moderate centrilobular emphysema elsewhere in the lungs. No pleural effusion. Heart: Linear area of focal uptake in the posterior wall of the left atrium with no corresponding CT abnormality is probably physiologic though it is much higher than MAC cardial uptake elsewhere in the cardiac chambers. No cardiomegaly. Coronary artery calcification is present. No pericardial effusion. Mediastinal space: No abnormal uptake. Liver: No abnormal uptake. Stable small calcifications suggestive of benign granulomas. Gallbladder and bile ducts: No abnormal uptake. No calcified gallstones. Stable chronic significant dilatation of the common bile duct up to 2 cm with no calcified gallstones. Pancreas: No abnormal uptake. Stable atrophy. Spleen: No abnormal uptake. No splenomegaly. Adrenal glands: No abnormal uptake. No nodules. Kidneys and ureters: Normal physiologic uptake. No hydronephrosis. Stable tiny bilateral nonobstructing renal stones. Stable 1.9 cm simple cyst posteriorly in the midpole of the right kidney. Stomach and bowel: Diffusely increased uptake in the colon with no corresponding CT abnormality is likely benign. Stable diverticulosis in the colon. Persistent moderate stool burden in the colon for clinical correlation with constipation. Vasculature: No abnormal uptake. Stable 3.1 cm infrarenal abdominal aortic aneurysm. Lymph nodes: No FDG avid lymphadenopathy in the head, neck, chest, abdomen, pelvis, and extremities. The uptake adjacent to the right hilum in the right upper lobe likely represents activity within the consolidated lung parenchyma than within the hilar lymph nodes. Bones/joints: No abnormal uptake in the visualized axial and appendicular skeleton. Soft tissues: No abnormal uptake in the visualized head, neck, chest, abdomen, pelvis, and extremities. PET/PET [facility] SUBSEQ [id number] IMPRESSION: FDG avid findings in the chest are suggestive of inflammatory process rather than malignancy. Morphologically stable small dense perihilar consolidation anteriorly in the right upper lobe decreased in uptake from 4.6 SUV to 3.3 SUV. There is new inflammatory opacity posteriorly in the right upper lobe with the highest uptake of 3.4 SUV. Other chronic non FDG avid findings in the lungs including significant bilateral emphysema and scarring within the left upper lobe and bilateral lung apices are unchanged. No suspicious FDG avid findings outside of the chest.
== END 2022-10-22 05:32 | disposition home or self-care (01) ==
LOC: RAD 10-24 05:32
PROVIDERS: PCP Family Medicine; Visit Provider Internal Medicine Pulmonary Disease
DX: R91.8 Other nonspecific abnormal finding of lung field (principal); R93.89 Abnormal findings on diagnostic imaging of other specified body structures; J43.9 Emphysema, unspecified; R94.2 Abnormal results of pulmonary function studies; Z95.5 Presence of coronary angioplasty implant and graft
CPT/HCPCS: 78815; A9552

== ENCOUNTER → 2022-10-31 11:07 | Outpatient (BNVA) | payer OTHER, SELFPAY | PROVIDERS: PCP Family Medicine; Visit Provider Internal Medicine Pulmonary Disease | DX: J96.11 Chronic respiratory failure with hypoxia (principal); R91.1 Solitary pulmonary nodule; J43.9 Emphysema, unspecified; F17.210 Nicotine dependence, cigarettes, uncomplicated; Z99.81 Dependence on supplemental oxygen | CPT/HCPCS: 99214 ==

== ENCOUNTER → 2022-11-16 15:39 | Outpatient (BNVA) | payer OTHER, SELFPAY | PROVIDERS: PCP Family Medicine; Visit Provider Internal Medicine Cardiovascular Disease | DX: I25.10 Atherosclerotic heart disease of native coronary artery without angina pectoris (principal); I10 Essential (primary) hypertension; Z72.0 Tobacco use; M54.40 Lumbago with sciatica, unspecified side; G89.29 Other chronic pain; J44.9 Chronic obstructive pulmonary disease, unspecified | CPT/HCPCS: 99214 ==

== ENCOUNTER 2022-12-20 09:48 | Outpatient (CLI) | payer MEDICARE, SELFPAY ==
--- NOTE | 2022-12-20 10:00 | CT_ITS ---
WS: [id number] CT CHEST TECHNIQUE: Noncontrast CT of the chest with coronal and sagittal reformatted images. CLINICAL INFORMATION: 3 month f/u COMPARISON: None. DLP: 286.[address] scans at [facility] use at least one of these dose optimization techniques: automated e xposure control; mA and/or kV adjustment per patient size (includes targeted exams where dose is matc hed to clinical indication); or iterative reconstruction. FINDINGS: Advanced chronic emphysematous changes with pleural and parenchymal fibrosis. Traction bronchiectasis . Normal caliber thoracic aorta. No mediastinal or hilar lymphadenopathy. No axillary lymphadenopathy . Slightly progressed airspace consolidation in the RIGHT upper lobe extending to the RIGHT hilum and p eripherally to the pleura. This is most likely infectious or inflammatory. Recommend continued survei llance. Otherwise previously described FDG avid areas of consolidation and fibrosis are stable. Hypertrophic changes thoracic spine with mild thoracic kyphosis. IMPRESSION: 1. Slightly progressed airspace consolidation in the RIGHT upper lobe extending to the RIGHT hilum a nd peripherally to the pleura. This is most likely infectious or inflammatory. Recommend continued cárdenas rveillance. 2. Otherwise no significant changes since the prior PET/CT 10/22/2022 3. Advanced chronic emphysematous changes with pleural parenchymal fibrosis and bronchiectasis. 4. No new suspicious or progressed pulmonary parenchymal opacities.
== END 2022-12-20 09:49 | disposition home or self-care (01) ==
LOC: RAD 09:48
PROVIDERS: PCP Family Medicine; Visit Provider Internal Medicine Pulmonary Disease
DX: R93.89 Abnormal findings on diagnostic imaging of other specified body structures (principal); J47.9 Bronchiectasis, uncomplicated; J84.10 Pulmonary fibrosis, unspecified
CPT/HCPCS: 71250

== ENCOUNTER → 2023-01-12 09:37 | Outpatient (BNVA) | payer MEDICARE, SELFPAY | PROVIDERS: PCP Family Medicine; Referring Provider Internal Medicine Rheumatology; Visit Provider Internal Medicine Rheumatology | DX: Z79.899 Other long term (current) drug therapy (principal); M05.79 Rheumatoid arthritis with rheumatoid factor of multiple sites without organ or systems involvement; J44.9 Chronic obstructive pulmonary disease, unspecified; Z71.85 Encounter for immunization safety counseling | CPT/HCPCS: 99204 ==

== ENCOUNTER → 2023-04-20 10:29 | Outpatient (BNVA) | payer MEDICARE, SELFPAY | PROVIDERS: PCP Family Medicine; Visit Provider Internal Medicine Rheumatology | DX: M05.79 Rheumatoid arthritis with rheumatoid factor of multiple sites without organ or systems involvement (principal); Z79.899 Other long term (current) drug therapy; J44.9 Chronic obstructive pulmonary disease, unspecified; Z71.85 Encounter for immunization safety counseling | CPT/HCPCS: 99214 ==

== ENCOUNTER 2023-05-25 07:57 | Outpatient (CLI) | payer OTHER, SELFPAY ==
--- NOTE | 2023-05-25 08:00 | CT_ITS ---
WS: [id number] LDCT LUNG CANCER SCREENING TECHNIQUE: Noncontrast CT of the chest with coronal and sagittal reformatted images. CLINICAL INFORMATION: F17.210 - Nicotine dependence, cigarettes, uncomplicated COMPARISON: CT chest 12/20/2022 DLP: 51.71 mGy.cm DIvol: Mean CTDIvol: 0.80 (mGy) All CT scans at [facility] use at least one of these dose optimization techniques: automat ed exposure control; mA and/or kV adjustment per patient size (includes targeted exams where dose is matched to clinical indication); or iterative reconstruction. FINDINGS: Advanced chronic emphysematous changes with scattered areas of pleural-parenchymal fibrosis and bronc hiectasis similar to the prior studies. Associated traction bronchiectasis worse in the upper lobes. No new suspicious pulmonary parenchymal abnormalities. Pleural parenchymal scarring within the RIGHT upper lobe extending to the RIGHT hilum is stable. Fibrosis in the lung apices. No mediastinal or hilar lymphadenopathy. No axillary lymphadenopathy. Hypertrophic changes thoracic spine. Mild thoracic curve. Mild thoracic kyphosis. Aortic calcificatio n. Normal caliber thoracic aorta. IMPRESSION: CT/CT lung screening [id number] LUNG-RADS: 2-Benign Appearance or Behavior FOLLOW UP: 12 Month: Continue annual screening with LDCT
== END 2023-05-25 07:58 | disposition home or self-care (01) ==
LOC: RAD 07:57
PROVIDERS: PCP Family Medicine; Visit Provider Internal Medicine Pulmonary Disease
DX: F17.210 Nicotine dependence, cigarettes, uncomplicated (principal); Z12.2 Encounter for screening for malignant neoplasm of respiratory organs
CPT/HCPCS: 71271

== ENCOUNTER 2023-08-22 21:19 | Inpatient (IN) | payer OTHER, MEDICARE, SELFPAY ==
[2023-08-22 21:25] VITALS: BP 120/63; PULSE 95; RESP 20; TEMP 36.9; O2SAT 94
--- NOTE | 2023-08-22 21:32 | XRR_ITS ---
PROCEDURE INFORMATION: Exam: XR Chest Exam date and time: 08/22/2023 9:36 PM Age: 73 years old Clinical indication: Shortness of breath; Prior surgery; Surgery date: 6+ months; Surgery type: Cardiac stents TECHNIQUE: Imaging protocol: Radiologic exam of the chest. Views: 1 view. COMPARISON: CT lung screening [id number] 05/25/2023 8:04 AM FINDINGS: Lungs: Interval appearance of moderate to severe pneumonia in the right upper and mid lung carias. Stable COPD . Pleural spaces: Unremarkable. No pleural effusion. No pneumothorax. Heart/Mediastinum: Unremarkable. No cardiomegaly. Bones/joints: Unremarkable. XR/XR chest 1V portable [id number] IMPRESSION: 1. Interval appearance of moderate to severe pneumonia in the right upper and mid lung carias. 2. Stable COPD .
--- NOTE | 2023-08-22 21:34 | ECG_ITS ---
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 Measurements Intervals [place] Rate: 76 P: 69 VT: 175 QRS: 76 QRSD: 86 T: 62 QT: 339 QTc: 381 Interpretive Statements SINUS RHYTHM POSSIBLE RIGHT ATRIAL ENLARGEMENT [0.25mV P-WAVE] LEFT ATRIAL ENLARGEMENT [-0.15mV P-WAVE IN V1/V2] Compared to ECG 08/18/2020 14:50:35 Atrial abnormality now present Electronically Signed On 08-23-2023 16:39:21 CDT by Daniel Avlares M.D. [email or web address]
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
[2023-08-22 22:20] VITALS: BP 123/62; PULSE 74; RESP 16; O2SAT 96
[2023-08-22 22:20] LABS: Basophils % 0.2 %; Eosinophils # 0.1 10^3/uL (0.0-0.8); Eosinophils % 0.3 %; Hematocrit 29.5 % (37-53); Lymphocytes # 1.1 10^3/uL (0.8-4.8); Lymphocytes % 5.7 %; Mean Corpuscular HGB Conc 30.8 g/dL (30-55); Mean Corpuscular Hemoglobin 30.3 pg (27-33); Mean Corpuscular Volume 98.3 fl (82-101); Mean Platelet Volume 10.5 fL (7.4-10.4); Monocytes # 1.2 10^3/uL (0.2-0.9); Monocytes % 6.3 %; Neutrophils # 16.52 10^3/uL (1.8-7.7); Neutrophils % 87.1 %; Nucleated Red Blood Cells % 0 %; Platelet Count 426 10^3/cmm (157-399); Red Cell Distribution Width 13.4 % (12.1-15.1); White Blood Count 18.97 10^3/uL (3.29-11.43)
[2023-08-22] MEDS: piperacillin-tazobactam 3.375 GM in sodium chloride 0.9% (plus) 50 ML IV (22:29)
[2023-08-22 22:30] VITALS: BP 131/66; PULSE 77; RESP 17; O2SAT 98
--- NOTE | 2023-08-22 22:50 | CTR_ITS ---
PROCEDURE INFORMATION: Exam: CTA Chest With Contrast Exam date and time: 08/22/2023 11:24 PM Age: 73 years old Clinical indication: Dyspnea; Additional info: Dyspnea pneumonia hypoxia TECHNIQUE: Imaging protocol: Computed tomographic angiography of the chest with contrast. Exam focused on the arteries. 3D rendering (Not supervised by radiologist): MIP and/or 3D reconstructed images were created by the technologist. Radiation optimization: All CT scans at this facility use at least one of these dose optimization techniques: automated exposure control; mA and/or kV adjustment per patient size (includes targeted exams where dose is matched to clinical indication); or iterative reconstruction. Contrast material: OMNI 3550; Contrast volume: 60 ml; Contrast route: INTRAVENOUS (IV); COMPARISON: CT angio chest [id number] 07/05/2022 8:08 AM RADIATION DOSE METRICS: Total DLP (mGy-cm): 246.71 FINDINGS: Pulmonary arteries: Nonocclusive segmental pulmonary embolus right upper lobe. Aorta: Calcification of the abdominal aorta and/or iliac arteries consistent with atherosclerotic vessel disease. Lungs: Severe paraseptal emphysema. Severe centrilobular emphysema. Interval appearance of moderate to severe pneumonia in the right upper and mid lung field including portions of the superior segment right lower lobe and right upper lobe. Pleural spaces: Unremarkable. No pneumothorax. No pleural effusion. Heart: Right heart strain with 1.5 cm RV/LV ratio. 18 mm lateral wall left ventricle and 16 mm septal wall consistent with hypertrophic cardiomyopathy. Coronary arteries: Severe calcified coronary artery disease. Lymph nodes: Unremarkable. No enlarged lymph nodes. Gallbladder and biliary ducts: Stable cholecystectomy. Continued dilatation of the intra-and extrahepatic biliary tree which can be normal following cholecystectomy. Bones/joints: Unremarkable. No acute fracture. Soft tissues: Unremarkable. CT/CT angio chest PE protcl [id number] IMPRESSION: 1. Severe paraseptal emphysema. 2. Severe calcified coronary artery disease. 3. Nonocclusive segmental pulmonary embolus right upper lobe. 4. Right heart strain with 1.5 cm RV/LV ratio. 5. 18 mm lateral wall left ventricle and 16 mm septal wall consistent with hypertrophic cardiomyopathy. 6. Severe centrilobular emphysema. 7. Interval appearance of moderate to severe pneumonia in the right upper and mid lung field including portions of the superior segment right lower lobe and right upper lobe. COMMENTS: The presence of pulmonary emphysema on CT is an independent risk factor for lung cancer. In the absence of a history or active diagnosis of lung cancer, it is recommended that this patient with emphysema be evaluated for enrollment in a low dose CT lung cancer screening program.
[2023-08-22 22:51] LABS: Troponin(5th) Baseline 56 ng/L (0-15)
[2023-08-22 22:56] LABS: Add Urine Microscopic? YES; Bilirubin Urine Neg (Negative); Blood Urine 3+ (Negative); Glucose Urine UA Norm (Normal); Ketones Urine Negative (Negative); Leukocyte Esterase Urine Trace (Negative); Nitrate Urine Negative (Negative); Protein Urine 1+ (Negative); Specific Gravity, Urine 1.015 (1.005-1.030); Urine Appearance Clear (CLEAR); Urine Color Yellow (Yellow); Urobilinogen Urine Norm (Negative); pH Urine 6 (5-7)
[2023-08-22 22:57] LABS: Add Urine Culture? Yes; Bacteria Urine TRACE /hpf; Mucus Urine 1+ /hpf; RBC Urine 25-40 /hpf (0-2); Squamous Epithelial Cell Urine 0-4 /hpf (0-5); WBC Urine 0-4 /hpf (0-5)
[2023-08-22 22:58] LABS: NT Pro B Type Natriuretic Pept 833 pg/mL (0-125)
[2023-08-22 23:00] VITALS: BP 107/59; PULSE 69; RESP 18; O2SAT 99
[2023-08-22 23:09] LABS: Alanine Aminotransferase 47 U/L (0-41); Albumin Level 2.9 g/dL (3.5-5.2); Alkaline Phosphatase 412 U/L (40-130); Aspartate Amino Transferase 28 U/L (0-40); Blood Urea Nitrogen 19 mg/dL (8-23); Calcium 9.5 mg/dL (8.5-10.5); Carbon Dioxide 30 mmol/L (22-29); Chloride 93 mmol/L (98-107); Creatinine Clr Calc Pharmacy 70.6853; Globulin 4.7 g/dL (1.3-4.6); Glucose 201 mg/dL (65-115); Magnesium 1.7 mg/dL (1.7-2.3); Osmolality Calculated 294 mOsm/kg (285-295); Sodium 138 mmol/L (136-145); Total Bilirubin 0.2 mg/dL (0.15-1.2); Total Protein 7.6 g/dL (6.6-8.7)
[2023-08-22 23:10] LABS: Lactic Sepsis W/Reflex 2.4 mmol/L (0.5-2.2)
[2023-08-22] MEDS: sodium chloride 0.9% 1,000 ML 999 ML IV (23:22)
[2023-08-22] MEDS: iohexol 350 mg/mL 500 mL Btl (per mL) IV (23:26)
--- NOTE | 2023-08-22 23:34 | ECG_ITS ---
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 Measurements Intervals [place] Rate: 72 P: 253 NE: 106 QRS: 79 QRSD: 83 T: 66 QT: 359 QTc: 395 Interpretive Statements Sinus rhythm Left atrial abnormality Compared to ECG 08/22/2023 22:22:15 No change Electronically Signed On 08-23-2023 16:42:57 CDT by Daniel Alvares M.D. [email or web address] [email or web address] [facility] hospitalISGN Corporationmercy [id number]
[2023-08-22 23:41] VITALS: BP 107/66; PULSE 76; RESP 18; O2SAT 93
[2023-08-22 23:56] LABS: Troponin 5 2HR 53.88 ng/L (0-15)
[2023-08-22 23:59] LABS: Troponin 5 2HR Delta -2.12 ABS# (0-10)
[2023-08-23] VITALS (47 sets, daily range): BP systolic 93–138; BP diastolic 52–82; PULSE 54–91; RESP 16–18; TEMP 37.2; O2SAT 90–100; BMI 17.9
[2023-08-23 00:05] LABS: Reflex Lactate Order REFLEX LACTIC ORDERD
[2023-08-23 00:31] LABS: Adenovirus Not Detected (NOT DETECT); Chlamydia Pneumoniae Not Detected (NOT DETECT); Coronavirus 229E,HKU1,NL63,OC4 Not Detected (NOT DETECT); Human Metapneumovirus Not Detected (NOT DETECT); Human Rhinovirus/Enterovirus Not Detected (NOT DETECT); Influenza A Not Detected (NOT DETECT); Influenza A H1 Not Detected (NOT DETECT); Influenza A H1-2009 Not Detected (NOT DETECT); Influenza A H3 Not Detected (NOT DETECT); Influenza B Not Detected (NOT DETECT); Mycoplasma Pneumoniae Not Detected (NOT DETECT); Parainfluenza Virus Type 1 Not Detected (NOT DETECT); Parainfluenza Virus Type 2 Not Detected (NOT DETECT); Parainfluenza Virus Type 3 Not Detected (NOT DETECT); Parainfluenza Virus Type 4 Not Detected (NOT DETECT); Respiratory Syncytial Virus A Not Detected (NOT DETECT); Respiratory Syncytial Virus B Not Detected (NOT DETECT); SARS-COV-2 Not Detected (NOT DETECT)
--- NOTE | 2023-08-23 00:35 | USCV_ITS ---
Albert Melara Age: 73 Gender: M : 1950 Exam Date: 08/23/2023 01:24 Ordering Phys: Chiqui Flor MD Technologist: BRANDEN [place] [facility] [place]: Hypertrophic cardiomyopathy, PE, right heart strain. History of O2 dependency 4L. c/o weakness, SOB BP: 114 / 56 HR: 70 Rhythm: Sinus Technical Quality: Adequate MEASUREMENTS (Male / Female) Normal Values 2D ECHO LV Diastolic Diameter PLAX 3.6 cm 4.2 - 5.9 / 3.9 - 5.3 cm IVS Diastolic Thickness 1.3 cm 0.6 - 1.0 / 0.6 - 0.9 cm IVS Systolic Thickness 1.5 cm LVPW Diastolic Thickness 1.2 cm 0.6 - 1.0 / 0.6 - 0.9 cm LVPW Systolic Thickness 1.8 cm LVOT Diameter 1.8 cm LV Ejection Fraction 2D Teich 59.9 % LV Ejection Fraction MOD 4C 77.8 % LV Ejection Fraction MOD 2C 67.6 % LV Ejection Fraction 2C AL 70.2 % LA Diameter 3.3 cm Aorta at Sinotubular Diameter 2.8 cm IVC Diameter 1.6 cm M-MODE LA Ao Ratio MM 0.8 AV Cusp Separation MM 1.7 cm DOPPLER AV Peak Velocity 153.0 cm/s LVOT Peak Velocity 103.0 cm/s AV Area Cont Eq vti 2.2 cm squared AV Area Cont Eq pk 1.8 cm squared MV Peak Velocity 109.0 cm/s MV Area PHT 3.7 cm squared Mitral E to A Ratio 1.3 TV Peak Velocity 292.0 cm/s TR Peak Velocity 293.0 cm/s TR Peak Gradient 34.3 mmHg TV Peak E Velocity 45.0 cm/s Right Atrial Pressure 3.0 mmHg Pulmonary Artery Systolic Pressu 37.3 mmHg PV Peak Velocity 124.0 cm/s FINDINGS Left Ventricle Normal left ventricular cavity size. Mild left ventricular hypertrophy. No JEFRY. Grade I/IV diastolic dysfunction (abnormal relaxation filling pattern), normal to mildly elevated filling pressures. Left ventricular ejection fraction is estimated at 65 %. No regional wall motion abnormalities. Right Ventricle Normal right ventricular size and systolic function. Normal right ventricular systolic pressure. Right Atrium The right atrium is normal in size. Left Atrium The left atrium is normal in size. Mitral Valve Structurally normal mitral valve. Trace mitral valve regurgitation. Aortic Valve Structurally normal trileaflet aortic valve. Thickened aortic valve. No aortic valve regurgitation. No aortic valve stenosis. Tricuspid Valve Structurally normal tricuspid valve. Mild tricuspid valve regurgitation. Pulmonic Valve Structurally normal pulmonic valve. Mild pulmonary valve regurgitation. Pericardium Normal pericardium without effusion. Aorta Normal ascending aorta dimension. IVC The inferior vena cava appears normal. CONCLUSIONS Normal left ventricular cavity size. Mild left ventricular hypertrophy. No JEFRY. Grade I/IV diastolic dysfunction (abnormal relaxation filling pattern), normal to mildly elevated filling pressures. Left ventricular ejection fraction is estimated at 65 %. No regional wall motion abnormalities. Structurally normal mitral valve. Trace mitral valve regurgitation. No change from the previous study of 07/01/2015 Dr. Daniel Alvares MD (Electronically Signed) Final Date: 23 August 2023 08:56 S
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
[2023-08-23] MEDS: heparin 5,000 unit/mL INJ 1 mL IV ×2 (00:54→21:50)
[2023-08-23] MEDS: heparin drip 25,000 UNIT/500 ML PREMIX 1.23 UNIT IV (00:56)
[2023-08-23 01:46] LABS: Lactic Acid level (Lactate) 1.8 mmol/L (0.5-2.2)
[2023-08-23] MEDS: levofloxacin-dextrose 5 % 750 MG/150 ML PREMIX 100 MG IV (02:09)
[2023-08-23] MEDS: methylPREDNISolone sod succ 40 mg/mL INJ IVP ×2 (02:10→13:26)
[2023-08-23] MEDS: sodium chloride 0.9% 1,000 ML 100 ML IV (02:10)
[2023-08-23] MEDS: vancomycin 1,250 MG/250 ML PIGGYBACK 250 MG IV ×2 (03:30→13:27)
--- NOTE | 2023-08-23 03:34 | ECG_ITS ---
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 Measurements Intervals Halliday Rate: 71 P: 73 VT: 189 QRS: 81 QRSD: 86 T: 61 QT: 357 QTc: 390 Interpretive Statements SINUS RHYTHM WITH OCCASIONAL SUPRAVENTRICULAR PREMATURE COMPLEXES LEFT ATRIAL ENLARGEMENT [-0.15mV P-WAVE IN V1/V2] Compared to ECG 08/22/2023 23:44:57 PACs now present Electronically Signed On 08-23-2023 16:43:33 CDT by Daniel Alvares M.D. [id number]
[2023-08-23 04:01] LABS: INR 1.06 (0.8-1.2)
[2023-08-23 04:05] LABS: Troponin 5 6HR 45.15 ng/L (0-15)
[2023-08-23 04:06] LABS: Magnesium 1.7 mg/dL (1.7-2.3)
[2023-08-23 04:08] LABS: Troponin 5 6HR Delta -10.85 ng/L (0-12)
[2023-08-23 04:18] LABS: Ferritin 317 ng/mL (30-400); Iron 14 ug/dL (59-158); Percent Saturation 9.8 % (20-50); Total Iron Binding Capacity 142 mcg/dl; Unsaturated Iron Binding 128 ug/dL (112-347)
[2023-08-23 04:35] LABS: ABG PH Result 7.38 (7.35-7.45); Arterial Blood Gas Hematocrit 25.3 % (42-52); Base Excess ABG 9.2 mmol/L (-2.0-2.0); Blood Gas Allen Test Pos; Blood Gas Sample Type Arterial; HCO3 ABG 35.7 mmol/L (22-26); PO2 ABG 78.9 mmHg (80.0-100.0)
[2023-08-23 04:36] LABS: Blood Gas LPM 4.5 %; Blood Gas Operator Identificat MONRO; Blood Gas Sample Site Radial, left; Oxygen Device NC; PO2 FiO2 Ratio Arterial Blood 187
[2023-08-23] MEDS: ipratropium-albuterol 3 mL Neb INHALATION ×6 (04:47→23:25)
--- OUTSIDE RECORDS SUMMARY | 2023-08-23 05:25 | XMS_ITS ---
Author Name Unknown Organization [facility], [place], [facility] ALLERGIES AND ADVERSE REACTIONS No information ASSESSMENT No information CHIEF COMPLAINT No information Vital Signs Bpsitting Date Temperature Weight Height Spo2 Respiration Bmi Ti merecorded Pulse 130/74 2011 00:00: 00 98.2 null 5,9 null 16 28.96 07:19 68 144/88 2014 00:00: 00 98.2 null 5,9 91 24 28.67 07:19 88 null 2021 00:00: 00 97.3 null 5,11 97 20 20.99 07:19 100 132/80 2009 00:00: 00 97.4 null 5,11 null 16 28.31 07:19 78 132/70 2016 00:00: 00 97.9 null 5,9 94 20 28.56 07:19 88 140/88 2011 00:00: 00 97.8 null 5,9 null 20 27.22 07:19 84 124/70 2014 00:00: 00 98.2 null 5,9 null 20 29.56 07:19 92 134/80 2004 00:00: 00 97.9 null 5,11 98 20 28.31 07:19 76 134/78 2014 00:00: 00 98.1 null 5,9 null 20 29.25 07:19 84 120/68 2017 00:00: 00 98.3 null 5,11 91 24 24.06 07:19 88 144/86 2011 00:00: 00 97.9 null 5,9 null 16 26.38 07:19 88 142/64 2015 00:00: 00 98.2 null 5,9 null 20 28.23 07:19 76 150/84 2011 00:00: 00 98 null 5,9 null 16 29.25 07:19 80 126/78 2011 00:00: 00 99.1 null 5,9 null 20 27.65 07:19 80 136/68 2017 00:00: 00 98.7 null 5,11 94 24 26.25 07:19 92 116/74 2008 00:00: 00 97.8 null null 94 20 null 07:19 106 126/82 2013 00:00: 00 98.5 null 5,9 null 16 30.42 07:19 84 138/86 2008 00:00: 00 98 null 5,11 92 null 28.45 07:19 78 112/70 2012 00:00: 00 98 null null null null null 07:19 74 146/72 2016 00:00: 00 98.7 null 5,9 97 20 28.6 07:19 68 148/84 2012 00:00: 00 97.9 null 5,9 null 16 29.54 07:19 80 130/72 2016 00:00: 00 97.9 null 5,9 95 20 28.69 07:19 72 120/72 2015 00:00: 00 98 null 5,9 92 20 28.31 07:19 72 134/76 2014 00:00: 00 98.1 null 5,9 96 24 29.14 07:19 80 134/76 2012 00:00: 00 97.9 null 5,9 null 16 29.4 07:19 92 130/76 2018 00:00: 00 98.1 null 5,11 93 24 24.86 07:19 76 166/74 2017 00:00: 00 99.1 null 5,11 93 24 25.38 07:19 88 null 2021 00:00: 00 null 150,8.00 null null null null 07:19 null 142/82 2021 00:00: 00 97.6 null 5,11 95 null 19.56 07:19 105 152/80 2013 00:00: 00 97.7 null 5,9 96 20 30.56 07:19 92 132/94 2013 00:00: 00 97.9 null 5,9 null 20 29.76 07:19 80 108/78 2013 00:00: 00 98.4 null 5,9 null 16 29.87 07:19 80 114/72 2012 00:00: 00 98.3 null 5,9 null 16 29.54 07:19 68 142/86 2009 00:00: 00 97.6 null null 96 20 null 07:19 71 null 2011 00:00: 00 null 195,0.00 null null null null 07:19 null 124/66 2004 00:00: 00 98.5 null null null 20 null 07:19 84 164/96 2009 00:00: 00 97.7 null null null 20 null 07:19 76 120/68 2012 00:00: 00 98.4 null 5,9 null 20 29.98 07:19 92 132/62 2021 00:00: 00 98.4 null 5,11 95 20 19.8 07:19 74 128/68 2015 00:00: 00 98.1 null 5,9 null 20 28.38 07:19 92 155/64 2022 00:00: 00 98.4 136,16.0 0 5,10 94 22 19.5 09:01 110 130/64 2017 00:00: 00 98.1 null 5,11 94 24 24.54 07:19 84 null 2021 00:00: 00 null 140,4.00 null null null null 07:19 null null 2017 00:00: 00 null 172,8.00 null null null null 07:19 null null 2003 00:00: 00 null 195,0.00 null null null null 07:19 null 140/74 2015 00:00: 00 97.8 null 5,9 null 20 28.84 07:19 76 null 2012 00:00: 00 98 null 5,9 95 20 31.44 07:19 69 132/80 2003 00:00: 00 98.1 null null null 16 null 07:19 72 132/84 2012 00:00: 00 97.7 null 5,9 97 20 31 07:19 83 138/80 2009 00:00: 00 98.1 null null null 20 null 07:19 76 140/70 2015 00:00: 00 98 null 5,9 95 20 28.71 07:19 96 152/86 2017 00:00: 00 98.3 null 5,11 null 24 26.98 07:19 80 null 2013 00:00: 00 null 210,0.00 null null null null 07:19 null 132/70 2014 00:00: 00 98 null 5,9 null 20 29.4 07:19 80 null 2021 00:00: 00 null 142,0.00 null null null null 07:19 null 120/80 2003 00:00: 00 98.5 null null null 20 null 07:19 80 130/90 2003 00:00: 00 null null null null 20 null 07:19 76 null 2021 00:00: 00 99.1 null 5,11 91 null 19.94 07:19 78 138/84 2011 00:00: 00 98.3 null 5,9 null 16 28.38 07:19 84 144/72 2018 00:00: 00 98.1 null 5,11 95 24 23.64 07:19 92 128/64 2021 00:00: 00 97.9 null 5,11 92 20 20.81 07:19 92 160/70 2011 00:00: 00 98.6 null null null 20 null 07:19 80 136/84 2015 00:00: 00 98.9 null 5,9 null 20 29.29 07:19 84 136/62 2021 00:00: 00 98.1 null 5,11 93 20 21.13 07:19 84 112/76 2011 00:00: 00 98.1 null 5,9 null 16 27.36 07:19 84 168/94 2011 00:00: 00 98.3 null 5,9 null 20 29.25 07:19 88 138/76 2012 00:00: 00 98.1 null 5,9 97 20 29.54 07:19 87 116/64 2008 00:00: 00 96.9 null null 95 16 null 07:19 89 158/88 05/02/ 2012 00:00: 00 98.2 null 5,9 null 20 27.8 07:19 84 114/72 2011 00:00: 00 98.4 null 5,9 null 16 27.36 07:19 76 136/74 2016 00:00: 00 98.4 null 5,9 93 20 28.31 07:19 80 null 2012 00:00: 00 null 205,0.00 null null null null 07:19 null null 2012 00:00: 00 null 206,0.00 null null null null 07:19 null null 2014 00:00: 00 null 200,4.00 null null null null 07:19 null null 2011 00:00: 00 null 188,0.00 null null null null 07:19 null null 2003 00:00: 00 null 191,0.00 null null null null 07:19 null 138/64 2022 00:00: 00 98.2 138,0.00 5,10 97 20 19.7 10:35 72 null 2012 00:00: 00 null 207,0.00 null null null null 07:19 null 112/68 2022 00:00: 00 98.2 149,8.00 5,4 98 16 25.7 08:47 68 118/76 2022 00:00: 00 97.3 177,16.0 0 4,11 97 null 36 07:23 87 120/70 2013 00:00: 00 97.6 null 5,9 null 20 30.13 07:19 80 null 2013 00:00: 00 null null null null null null 07:19 null 134/86 2003 00:00: 00 98.7 null null null null null 07:19 88 null 2011 00:00: 00 null 199,0.00 null null null null 07:19 null 130/70 2014 00:00: 00 98 null 5,9 null 20 29.04 07:19 76 null 2018 00:00: 00 null 169,8.00 null null null null 07:19 null 138/82 2008 00:00: 00 97.7 null null 95 null null 07:19 96 null 2016 00:00: 00 null 194,8.00 null null null null 07:19 null null 2011 00:00: 00 null 191,0.00 null null null null 07:19 null null 2011 00:00: 00 null 190,0.00 null null null null 07:19 null null 2017 00:00: 00 null 176,0.00 null null null null 07:19 null 130/62 2022 00:00: 00 97.8 139,0.00 5,10 97 20 19.8 10:36 72 null 2017 00:00: 00 null 188,4.00 null null null null 07:19 null null 2004 00:00: 00 null 203,0.00 null null null null 07:19 null null 2021 00:00: 00 null 149,4.00 null null null null 07:19 null null 2017 00:00: 00 null 193,8.00 null null null null 07:19 null 124/66 2017 00:00: 00 98 null null null 17 null 07:19 71 null 2004 00:00: 00 null 203,0.00 null null null null 07:19 null 148/82 2012 00:00: 00 97.9 null 5,9 null 16 30.13 07:19 92 null 2012 00:00: 00 null 202,0.00 null null null null 07:19 null null 2016 00:00: 00 null 196,8.00 null null null null 07:19 null null 2017 00:00: 00 null 182,0.00 null null null null 07:19 null null 2014 00:00: 00 null 201,0.00 null null null null 07:19 null null 2011 00:00: 00 null 187,0.00 null null null null 07:19 null null 2015 00:00: 00 null 195,0.00 null null null null 07:19 null null 2003 00:00: 00 null 192,0.00 null null null null 07:19 null null 2021 00:00: 00 null 151,8.00 null null null null 07:19 null null 2012 00:00: 00 null 213,0.00 null null null null 07:19 null null 2014 00:00: 00 null 203,2.00 null null null null 07:19 null null 2015 00:00: 00 null 194,8.00 null null null null 07:19 null null 2015 00:00: 00 null 201,4.00 null null null null 07:19 null null 2013 00:00: 00 null 205,4.00 null null null null 07:19 null null 2009 00:00: 00 null 198,0.00 null null null null 07:19 null null 2003 00:00: 00 null 191,0.00 null null null null 07:19 null null 2013 00:00: 00 null 207,0.00 null null null null 07:19 null null 2011 00:00: 00 null 188,0.00 null null null null 07:19 null null 2009 00:00: 00 null 203,0.00 null null null null 07:19 null 116/70 2003 00:00: 00 null null null null 16 null 07:19 60 null 2011 00:00: 00 null 201,0.00 null null null null 07:19 null null 2014 00:00: 00 null 202,0.00 null null null null 07:19 null null 2008 00:00: 00 null 204,0.00 null null null null 07:19 null null 2011 00:00: 00 null 201,0.00 null null null null 07:19 null null 2012 00:00: 00 null 216,0.00 null null null null 07:19 null null 2013 00:00: 00 null 202,0.00 null null null null 07:19 null null 2012 00:00: 00 null 203,0.00 null null null null 07:19 null null 2008 00:00: 00 null 205,0.00 null null null null 07:19 null null 2003 00:00: 00 null 188,0.00 null null null null 07:19 null null 2008 00:00: 00 null 201,0.00 null null null null 07:19 null null 2013 00:00: 00 null 204,8.00 null null null null 07:19 null null 2013 00:00: 00 null 209,0.00 null null null null 07:19 null null 2009 00:00: 00 null 197,0.00 null null null null 07:19 null null 2014 00:00: 00 null 199,8.00 null null null null 07:19 null null 2015 00:00: 00 null 197,4.00 null null null null 07:19 null null 2009 00:00: 00 null 198,0.00 null null null null 07:19 null null 2017 00:00: 00 null 172,0.00 null null null null 07:19 null null 2012 00:00: 00 null 203,0.00 null null null null 07:19 null null 2021 00:00: 00 null 143,0.00 null null null null 07:19 null null 2011 00:00: 00 null 196,0.00 null null null null 07:19 null null 2008 00:00: 00 null 206,0.00 null null null null 07:19 null null 2011 00:00: 00 null 181,4.00 null null null null 07:19 null null 2012 00:00: 00 null 203,0.00 null null null null 07:19 null null 2016 00:00: 00 null 196,4.00 null null null null 07:19 null null 2018 00:00: 00 null 178,4.00 null null null null 07:19 null null 2015 00:00: 00 null 194,0.00 null null null null 07:19 null null 2014 00:00: 00 null 197,0.00 null null null null 07:19 null null 2016 00:00: 00 null 197,2.00 null null null null 07:19 null null 2015 00:00: 00 null 198,2.00 null null null null 07:19 null OBJECTIVE DATA No information PHYSICAL EXAMINATION No information TREATMENT PLAN No information PROBLEMS No information RESULTS No information REVIEW OF SYSTEMS No information SUBJECTIVE DATA No information MEDICATIONS No information
--- OUTSIDE RECORDS SUMMARY | 2023-08-23 05:26 | XMS_ITS | Patient Health Record ---
Author Name Unknown Organization [facility] Address [address] [place], [place] [id number] Care Team Providers Care Crocheter Name Role Phone [facility] Primary Care Provider Lilly Coates MD, Jerry Unavailable [phone] Pete Boyce MD Unavailable Kymberly Swann Unavailable [phone] ALLERGIES Allergen (clinical drug ingredient) Drug/Non Drug Allergy documented on EMR Reaction Allergy Type Onset Date Status codeine codeine Unknown Drug Allergy Active RESULTS Component Value Reference Range Notes Urine tox screen / MS if ind icated Reviewed date:07/25/2023 07:22:04 AM Interpretation:Consistent Performing Lab: Notes/Report: Consistent REASON FOR REFERRAL Diagnosis 1 Other chronic pain ( G89.29) Referring Provider First Name Tam Beardenu ff Referring Provider Last Name [place] Referred [facility] Referred Provider Jerry Coates Referred Address [address], [id number], Referred Provider Specialty Pain Managem ent Referral Priority Routine Diagnosis 1 Other chronic pain ( G89.29) Referring Provider First Name Tam Sylvester ff Referring Provider Last Name PR Referred [facility] Referred Provider Jerry Coates Referred Address [address], [id number], Referred Provider Specialty Pain Managem ent Referral Priority Routine MEDICATIONS Medication SIG (Take, Route, Frequency, Duration) Notes Start Date End Date Status docusate sodium 100 mg 1 cap orally 2 ti mes a day Active Narcan 4 mg/0.1 mL as directed intranasally once 07/27/2021 Active Metoprolol Tartrate 25 mg 1/2 tab orally 2 times a day Active acetaminophen-oxycodon e 325 mg-10 mg 1-2 tabs orally Q4-6H prn pain (max 6/day; hold within 4H of planned sleep) for 28 days ICD-10: G89.29, (auth as per 07/25/23 visit) 08/22/2023 Active bisacodyl 5 mg 1 tab orally once a day, as needed Active atorvastatin 80 mg 1 tab orally once a day Active methotrexate 2.5 mg 6 tabs orally once a week Active albuterol 90 mcg/inh 2 puffs inhaled caterina ry 4 hours, as needed Active insulin aspart 100 units/mL as directed subcutaneously Active Zinc 140 mg (as elemental zinc 50 mg) 1 tab orally once a day Active Humira Pen 40 mg/0.4 mL as directed subcutaneously every other week Active Vitamin D3 50 mcg 1 tab orally once a day Active aspirin 325 mg 1 cap orally as directed Active metFORMIN 1000 mg 1 tab orally 2 times a day Active albuterol-ipratropium 2.5 mg-0.5 mg/3 mL 3 mL by nebulizer 4 times a day for 30 day(s) Active lisinopril 40 mg 1/2 tab orally once a day Active folic acid 1 mg 1 tab orally once a day Active traZODone 50 mg 1-2 tabs orally at bedtime, as needd Active Flonase Allergy Relief 50 mcg/inh 1 spray(s) in each nostril once a day 05/23/2023 Active pantoprazole 40 mg 1 tab orally once a day Active guaiFENesin 200 mg 1 tab orally every 4 hours, as needed Active Vitamin B12 500 mcg 1 tab orally once a day Active gabapentin 400 mg 2 caps orally 3 time s a day Active triamcinolone topical 0.1% 1 james applied topically 3 times a day for 7 day(s) 05/23/2023 Active SOCIAL HISTORY Tobacco Use: Social History Observation Description Date Details (start date - stop date) Current Smoker NA - NA Sex Assigned At : Social History Observation Description Sex Assigned At Unknown alcohol Question Answer Notes Did you have a drink containing alcohol in the p ast year? No Points 0 Interpretation Negative Tobacco use: Question Answer Notes : current smoker Are you interested in quitting? Not ready to pavel t How many cigarettes a day do you smoke? 21-30 How often do you smoke cigarettes? every day How soon after you wake up do you smoke your fir st cigarette? within 5 min When did you start smoking? 1970 PROBLEMS Problem Type ICD Code Onset Dates Problem Status W/U Status Risk SNOMED Code Notes Problem Sacroiliitis, not elsewhere classified (M46.1) Active confirmed Solitary sacroiliitis (063498454) Problem long-term (current) use of opiate analgesic (Z79.891) Active confirmed High risk drug monitoring status (058185245) Problem Obstructive sleep apnea (adult) (pediatric) (G47.33) Active confirmed Obstructive sleep apnea syndrome (17681937) Problem Other chronic pain (G89.29) Active confirmed Chronic pain (55522602) Problem Rheumatoid arthritis of unspecified site with involvement of other organs and systems (M05.60) Active confirmed Rheumatoid arthritis with organ / system involvement (746361516) Problem Rheumatoid arthritis, unspecified (M06.9) Active confirmed Rheumatoid arthritis (18544104) Problem Pain in right hip (M25.551) Active confirmed Right hip pain (445202910142645 ) Problem Pain in left hip (M25.552) Active confirmed Arthralgia of the pelvic region and thigh (438619834) VITAL SIGNS Temperature 97.6 degrees Fahrenheit 07/25/2023 Blood pressure diastolic 74 mm Hg 07/25/2023 Oximetry 96 % 07/25/2023 Height 73 in 07/25/2023 Blood pressure systolic 140 mm Hg 07/25/2023 Weight 132.6 lbs 07/25/2023 BMI 17.49 kg/m2 07/25/2023 Encounters Encounter Location Date Provider Diagnosis [facility] [address] [place], [place] [id number] 08/25/2022 Jerry Coates [facility] [address] [place], [place] [id number] 09/22/2022 Jerry Coates [facility] [address] [place], [place] [id number] 10/25/2022 Kymberly Blackburn Pain in right hip M25.551 ; Other chronic pain G89.29 ; Pain in left hip M25.552 and Rheumatoid arthritis of unspecified site with involvement of other organs and systems M05.60 [facility] [place] [id number] [place], [place] [id number] 11/24/2022 Jerry Coates [facility] [address] [facility] [employer] [place], [place] [id number] 12/22/2022 Jerry Coates [facility] [address], [place] [id number] 01/17/2023 Kymberly Blackburn Pain in right hip M25.551 ; Other chronic pain G89.29 ; Pain in left hip M25.552 and Rheumatoid arthritis of unspecified site with involvement of other organs and systems M05.60 [facility] [address] [facility] [employer] [place], [place] [id number] 02/14/2023 Jerry Coates [facility] [address], [place] [id number] 03/21/2023 Kymberly Blackburn Pain in right hip M25.551 ; Other chronic pain G89.29 ; Pain in left hip M25.552 and Rheumatoid arthritis of unspecified site with involvement of other organs and systems M05.60 [facility] [address], [place] [id number] 04/18/2023 Jerry Coates [facility] [address], [place] [id number] 05/23/2023 Kymberly Blackburn Pain in right hip M25.551 ; Other chronic pain G89.29 ; Pain in left hip M25.552 and Rheumatoid arthritis of unspecified site with involvement of other organs and systems M05.60 [facility] [address] [place], [place] [id number] 06/20/2023 Jerry Coates [facility] [address] [place], [place] [id number] 07/25/2023 Kymberly Blackburn Pain in right hip M25.551 ; Other chronic pain G89.29 ; Pain in left hip M25.552 ; Rheumatoid arthritis of unspecified site with involvement of other organs and systems M05.60 and 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 03/21/2023 Pain in right hip (ICD-10 - M25.551) Chronic joint pain. 05/23/2023 Pain in right hip (ICD-10 - M25.551) Chronic joint pain. 07/25/2023 Pain in right hip (ICD-10 - M25.551) Chronic joint pain. 07/25/2023 Pain in left hip (ICD-10 - M25.552) Chronic joint pain. 05/23/2023 Pain in left hip (ICD-10 - M25.552) Chronic joint pain. 07/25/2023 Other chronic pain (ICD-10 - G89.29) Patient reports that taking his pain medication allows him to move around a little more. Plan to continue opioid medication management. 03/21/2023 Pain in left hip (ICD-10 - M25.552) Chronic joint pain. 05/23/2023 Other chronic pain (ICD-10 - G89.29) Patient reports that taking his pain medication allows him to walk with greater ease. Plan to continue opioid medication management. 01/17/2023 Pain in left hip (ICD-10 - M25.552) Chronic joint pain. 03/21/2023 Other chronic pain (ICD-10 - G89.29) Patient reports that taking his pain medication allows him to spend more time with his grand kids. He states that he could use an extra pain pill most days to get better pain management. Plan to continue opioid medication management with quantity titration. 10/25/2022 Pain in left hip (ICD-10 - M25.552) Chronic joint pain 01/17/2023 Other chronic pain (ICD-10 - G89.29) Patient reports that taking his pain medication allows him to care for his dogs. Plan to continue opioid medication management. 10/25/2022 Other chronic pain (ICD-10 - G89.29) Patient reports that taking his pain medication allows him to get to his many doctors appointments with greater ease. Plan to continue opioid medication management 10/25/2022 Rheumatoid arthritis of unspecified site with involvement of other organs and systems (ICD-10 - M05.60) Follow-up with Dr. Dupont as scheduled 01/17/2023 Rheumatoid arthritis of unspecified site with involvement of other organs and systems (ICD-10 - M05.60) Follow-up with Dr. Dupont as scheduled. 03/21/2023 Rheumatoid arthritis of unspecified site with involvement of other organs and systems (ICD-10 - M05.60) Follow-up with rheumatology as scheduled. 05/23/2023 Rheumatoid arthritis of unspecified site with involvement of other organs and systems (ICD-10 - M05.60) Follow-up with rheumatology as scheduled. 07/25/2023 Rheumatoid arthritis of unspecified site with involvement of other organs and systems (ICD-10 - M05.60) Follow-up with rheumatology as scheduled. 07/25/2023 long-term (current) use of opiate analgesic (ICD-10 - Z79.891) 2022 opioid (OUD) risk tool score = 0. This places the patient in the low risk category. Plan urine toxicology screen today to monitor for presence of any unprescribed or illicit controlled substance(s), as well as prescribed oxycodone. 10/25/2022 Other Due to the [facility] inability to store more than 1 month of opioid prescriptions at a time, remaining eRx(s) will be sent in 30 and 60 days, as indicated. Patient reported being diagnosis with lung cancer. He is awaiting the results of a recent PET scan at [facility] 01/17/2023 Other Due to the [facility] inability to store more than 1 month of opioid prescriptions at a time, remaining eRx will be sent in 30 days. 03/21/2023 Other Due to the [facility] inability to store more than 1 month of opioid prescriptions at a time, remaining eRx will be sent in 30 days. 05/23/2023 Other Due to the [facility] inability to store more than 1 month of opioid prescriptions at a time, remaining eRx will be sent in 28 days. 07/25/2023 Other Due to the [facility] inability to store more than 1 month of opioid prescriptions at a time, remaining eRx will be sent in 28 days. PLAN OF TREATMENT Next Appt Details Provider Name:Jerry Jayfadia vincent, 09/26/2023 07:10:00 AM, [address], [place], [id number], Insurance Providers Payer Name Payer Address Payer Phone Subscriber Number Group Number Insured Name Patient Relationship to Insured Coverage Start Date Coverage End Date [employer] [address] [place] [id number] Albert Melara Self - patient is the insured MEDICAL (GENERAL) HISTORY Medical History History ICD Code Chronic pain Low back pain Sacroiliitis Bilateral hip pain Degenerative hip disease as per prior pl ain films report Rheumatoid arthritis Neck pain Arthropathy Neuropathy COPD / emphysema Hypercholesterolemia Diabetes mellitus type 2 Inguinal hernia Dyspnea Pseudomonas pneumonia Coronary artery disease Renal issues (history of stent placement ) Bile duct dilation Right inguinal hernia AAA (3.2 cm as per prior imaging report) Tobacco use, COPD Antihypertensive medication use Sleep apnea Lung mass Lung cancer Surgical History Surgery Date(Month/Year) Colonoscopy with polypectomy 1998, 2003 Bladder surgery Hernia repair, 12/2016 Placement of stent, heart, performed at [facility], 07/01/15 Placement of stent, kidney, performed at [facility], 12/25/20 Hospitalization History Reason Date(Month/Year) Multiple admissions for lungs
--- OUTSIDE RECORDS SUMMARY | 2023-08-23 05:26 | XMS_ITS ---
Author Name Unknown Organization [facility] Address [address] [place], [place] [id number] Care Team Providers Care Varnishing Unit Tool Setter Name Role Phone [facility] Primary Care Provider Lilly antony Coates MD, Jerry Unavailable [phone] Pete Boyce MD Unavailable [phone] Kymberly Swann Unavailable [phone] ALLERGIES Allergen (clinical drug ingredient) Drug/Non Drug Allergy documented on EMR Reaction Allergy Type Onset Date Status codeine codeine Unknown Drug Allergy Active RESULTS Component Value Reference Range Notes Urine tox screen / MS if ind icated Reviewed date:07/25/2023 07:22:04 AM Interpretation:Consistent Performing Lab: Notes/Report: Consistent REASON FOR VISIT Patient states he is here today for medication refills {bilateral hip pain} MEDICATIONS Medication SIG (Take, Route, Frequency, Duration) Notes Start Date End Date Status Zinc 140 mg (as elemental zinc 50 mg) 1 tab orally once a day Active Vitamin D3 50 mcg 1 tab orally once a day Active traZODone 50 mg 1-2 tabs orally at bedtime, as needd Active Vitamin B12 500 mcg 1 tab orally once a day Active triamcinolone topical 0.1% 1 james applied topically 3 times a day for 7 day(s) 05/23/2023 Active Narcan 4 mg/0.1 mL as directed intranasally once 07/27/2021 Active Metoprolol Tartrate 25 mg 1/2 tab orally 2 times a day Active methotrexate 2.5 mg 6 tabs orally once a week Active metFORMIN 1000 mg 1 tab orally 2 times a day Active pantoprazole 40 mg 1 tab orally once a day Active insulin aspart 100 units/mL as directed subcutaneously Active Humira Pen 40 mg/0.4 mL as directed subcutaneously every other week Active lisinopril 40 mg 1/2 tab orally once a day Active guaiFENesin 200 mg 1 tab orally every 4 hours, as needed Active gabapentin 400 mg 2 caps orally 3 time s a day Active docusate sodium 100 mg 1 cap orally 2 ti mes a day Active bisacodyl 5 mg 1 tab orally once a day, as needed Active atorvastatin 80 mg 1 tab orally once a day Active folic acid 1 mg 1 tab orally once a day Active Flonase Allergy Relief 50 mcg/inh 1 spray(s) in each nostril once a day 05/23/2023 Active acetaminophen-oxycodon e 325 mg-10 mg 1-2 tabs orally Q4-6H prn pain (max 6/day; hold within 4H of planned sleep) for 28 days ICD-10: G89.29 07/25/2023 Active albuterol 90 mcg/inh 2 puffs inhaled caterina ry 4 hours, as needed Active aspirin 325 mg 1 cap orally as directed Active albuterol-ipratropium 2.5 mg-0.5 mg/3 mL 3 mL by nebulizer 4 times a day for 30 day(s) Active SOCIAL HISTORY Tobacco Use: Social History [...] min When did you start smoking? 1970 VITAL SIGNS Height 73 in 07/25/2023 Weight 132.6 lbs 07/25/2023 BMI 17.49 kg/m2 07/25/2023 Blood pressure systolic 140 mm Hg 07/25/19 24 Blood pressure diastolic 74 mm Hg 024 Temperature 97.6 degrees Fahrenheit 07/25/19 24 Oximetry 96 % 07/25/2023 Encounters Encounter Location Date Provider Diagnosis [facility] [address] [id number] 07/25/2023 Kymberly Blackburn Pain in right hip M25.551 ; Other chronic pain G89.29 ; Pain in left hip M25.552 ; Rheumatoid arthritis of unspecified site with involvement of other organs and systems M05.60 and [facility] (current) use of opiate analgesic Z79.891 ASSESSMENTS Encounter Date Diagnosis Assessment Notes Treatment Notes Treatment Clinical Notes 07/25/2023 Pain in right hip (ICD-10 - M25.551) Chronic joint pain. 07/25/2023 Other chronic pain (ICD-10 - G89.29) Patient reports that taking his pain medication allows him to move around a little more. Plan to continue opioid medication management. 07/25/2023 Pain in left hip (ICD-10 - M25.552) Chronic joint pain. 07/25/2023 Rheumatoid arthritis of unspecified site with involvement of other organs and systems (ICD-10 - M05.60) Follow-up with rheumatology as scheduled. 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 This places the patient in the low risk category. Plan urine toxicology screen today to monitor for presence of any unprescribed or illicit controlled substance(s), as well as prescribed oxycodone. 07/25/2023 Other Due to the [place] [facility]'s inability to store more than 1 month of opioid prescriptions at a time, remaining eRx will be sent in 28 days. PLAN OF TREATMENT Medication Medication Name Sig Start Date Stop Date Notes acetaminophen-oxycodone 325 mg-10 mg 1-2 tabs orally Q4-6H prn pain (max 6/day; hold within 4H of planned sleep) for 28 days 07/25/2023 ICD-10: G89.29 Treatment Notes Assessment Notes Pain in right hip Chronic joint pain. Other chronic pain Patient reports that taking his pain medication allows him to move around a little more. Plan to continue opioid medication management. Pain in left hip Chronic joint pain. Rheumatoid arthritis of unsp ecified site with involvement of other organs and systems Follow-up with rheumatology as scheduled . [facility] (current) use of o piate analgesic 2022 opioid (OUD) risk tool score = 0. This places the patient in the low risk category. Plan urine toxicology screen today to monitor for presence of any unprescribed or illicit controlled substance(s), as well as prescribed oxycodone. Other Due to the [facility]'s inability to store more than 1 month of opioid prescriptions at a time, remaining eRx will be sent in 28 days. Next Appt Details Follow Up: 2 month Rx visit. , Reason: Provider Name:Jerry Montanez son, 09/26/2023 07:10:00 AM, [address] [facility], [place], [place], [id number], History and Physical Notes * HPI (History of Present Illness) Category Sub-Category Detail Notes Hip / thigh injury: tingling/numbness pain in the bilateral hip s. This pain (L>R) is described as constant aching. This pain intermittently extends into the LLE. The hip pain is aggravated by walking, standing, arising from a seated position, and by riding in a vehicle. This pain is somewhat alleviated by with rest, sitting in his recliner, and by lying down weakness BLE previous surgery Medications Percocet (oxycodone / acetaminop hen) 325 mg-10 mg, 1-2 tabs, orally, Q4-6H prn pain (max 6/day; hold within 4H of planned sleep), 28 days, 168, Refills 0. Notes: Prescriptions given (2) on 05/23/23. Patient reports good benefit, as evidenced by improved ability to perform self care, with quantity 61 and 0 prescription(s) remaining. Last fill date: 06/21/23. Patient also presents with 55 in an old bottle from 03/20/20. Last dose taken: 07/25/23 aspirin is managed by provid er at [facility]; will address / send request for anticoagulation cessation recommendations as the need arises Previous Therapy Previous therapy: medication ma nagement / opioid therapy for chronic duration with benefit Medication history: Neurontin 300 mg; Pe rcocet 10/325; rheumatologic medications Previous Imaging/Studies CT of the abdomen and pelvis on 10/15/20 X-rays of the hips on 04/29 Physical Examination Category Sub-Category Detail Notes ENT Hearing: grossly intact Chest Shape and expansion: normal expa nsion, equal bilaterally, respirations even and unlabored; oxygen at 4 liters per minute via nasal canula Neurological Psychiatric: alert and conver fiona Musculoskeletal Gait: broad-based, uns teady Outcome Assessment: Findings:: Negative, care pl an not required Dermatology Skin inspection: pink, warm, dry , and intact General General appearence: well groomed , well nourished Build: underweight Head: normocephalic Eyes Conjunctiva: without injectio n
--- OUTSIDE RECORDS SUMMARY | 2023-08-23 05:26 | XMS_ITS ---
Author Name Unknown Organization [facility] [employer] Address [email or web address] [place], [place] [id number] Care Team Providers Care Chief Fishery Division Name Role Phone [facility] Primary Care Provider Lilly eddieilajarocho Coates MD, Jerry Unavailable [phone] Austen SHIN, Pete Unavailable REASON FOR VISIT [facility] MEDICATIONS Medication SIG (Take, Route, Frequency, Duration) Notes Start Date End Date Status acetaminophen-oxycodo ne 325 mg-10 mg 1-2 tabs orally Q4-6H prn pain (max 6/day; hold within 4H of planned sleep) for 28 days ICD-10: G89.29, (auth as per 05/23/23 visit) 06/20/2023 Active Encounters Encounter Location Date Provider Diagnosis [facility] [email or web address] [place], [place] [id number] 06/20/2023 Jerry Coates PLAN OF TREATMENT Medication Medication Name Sig Start Date Stop Date Notes acetaminophen-oxycodone 325 mg-10 mg 1-2 tabs orally Q4-6H prn pain (max 6/day; hold within 4H of planned sleep) for 28 days 06/20/2023 ICD-10: G89.29, (auth as per 05/23/23 visit) Next Appt Details Provider Name:Jerry Montanez son, 09/26/2023 07:10:00 AM, [email or web address] [place], [place], [phone],
--- OUTSIDE RECORDS SUMMARY | 2023-08-23 05:26 | XMS_ITS ---
Author Name Unknown Organization [facility] Address [address] [place], [place] [id number] Care Team Providers Care Bolt Man Name Role Phone [facility] Primary Care Provider Lilly eddieilajarocho Coates MD, Jerry Unavailable [phone] Austen SHIN, Pete Unavailable REASON FOR VISIT [facility] Rx MEDICATIONS Medication SIG (Take, Route, Frequency, Duration) Notes Start Date End Date Status acetaminophen-oxycodo ne 325 mg-10 mg 1-2 tabs orally Q4-6H prn pain (max 6/day; hold within 4H of planned sleep) for 28 days ICD-10: G89.29, (auth as per 07/25/23 visit) 08/22/2023 Active Encounters Encounter Location Date Provider Diagnosis [facility] [address] [place], [place] [id number] 08/22/2023 Jerry Coates PLAN OF TREATMENT Medication Medication Name Sig Start Date Stop Date Notes acetaminophen-oxycodone 325 mg-10 mg 1-2 tabs orally Q4-6H prn pain (max 6/day; hold within 4H of planned sleep) for 28 days 08/22/2023 ICD-10: G89.29, (auth as per 07/25/23 visit) Next Appt Details Provider Name:Jerry Montanez son, 09/26/2023 07:10:00 AM, [address] [place], [place], [phone],
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
[2023-08-23] MEDS: oxyCODONE-APAP 10-325 mg Tablet 1 TAB PO ×4 (05:45→23:03)
[2023-08-23] MEDS: folic acid 1 mg Tablet PO (05:45)
[2023-08-23 07:30] LABS: Partial Thromboplastin Time 36.5 SECONDS (23.9-36.7)
[2023-08-23] MEDS: metoprolol tartrate 25 mg Tablet 12.5 MG PO ×2 (08:34→17:23)
[2023-08-23] MEDS: nicotine 21 mg Patch 1 PATCH TRANSDERMA (09:00)
--- NOTE | 2023-08-23 09:51 | PC.PHAR ---
PT IS VA AND CARRIES A CURRENT MED LIST.
--- NOTE | 2023-08-23 10:11 | PM.MISC ---
Miscellaneous Note Note: Had a long chat with the patient, family is at the bedside Patient was irritated He smokes more than 2 packs/day as per the I have started him on nicotine patch Currently on heparin drip Getting IV fluids for next 10 hours Echo report is pending Blood pressure stable Patient is full code Currently patient is on IV steroids and antibiotics Is being treated for pneumonia, PE Concern for hypertrophic cardiomyopathy Previous echo did not comment on cardiomyopathy Continue ICU management, if that is needed he can be transferred to [facility]
[2023-08-23 16:03] LABS: Partial Thromboplastin Time 36.5 SECONDS (23.9-36.7)
[2023-08-23] MEDS: atorvastatin 40 mg Tablet PO (17:23)
[2023-08-23 21:37] LABS: Partial Thromboplastin Time 38.8 SECONDS (23.9-36.7)
[2023-08-23] MEDS: ondansetron 2 mg/ML SDV 2 mL 4 MG IVP (23:04)
--- NOTE | 2023-08-23 23:47 | PC.NURSE ---
Transfer to [place]: @[id number]
[2023-08-24] VITALS (8 sets, daily range): BP systolic 127–140; BP diastolic 69–71; PULSE 51–82; RESP 16–18; TEMP 36.9–37.2; O2SAT 91–98
[2023-08-24] MEDS: methylPREDNISolone sod succ 40 mg/mL INJ IVP (00:36)
[2023-08-24] MEDS: levofloxacin-dextrose 5 % 750 MG/150 ML PREMIX 100 MG IV (00:45)
[2023-08-24] MEDS: vancomycin 1,250 MG/250 ML PIGGYBACK 250 MG IV (00:49)
[2023-08-24] MEDS: calcium carbonate 500 mg Chew Tablet PO (02:02)
[2023-08-24] MEDS: nicotine 21 mg Patch 1 PATCH TRANSDERMA (02:02)
[2023-08-24] MEDS: ipratropium-albuterol 3 mL Neb INHALATION ×2 (03:14→07:25)
[2023-08-24] MEDS: oxyCODONE-APAP 10-325 mg Tablet 1 TAB PO ×2 (03:23→07:24)
[2023-08-24] MEDS: heparin drip 25,000 UNIT/500 ML PREMIX 21 UNIT IV (03:44)
[2023-08-24 03:55] LABS: Hematocrit 24.5 % (37-53); Lymphocytes # 0.5 10^3/uL (0.8-4.8); Mean Corpuscular HGB Conc 30.6 g/dL (30-55); Mean Corpuscular Hemoglobin 30.1 pg (27-33); Mean Corpuscular Volume 98.4 fl (82-101); Mean Platelet Volume 10.6 fL (7.4-10.4); Monocytes # 0.3 10^3/uL (0.2-0.9); Monocytes % 2.8 %; Neutrophils # 11.44 10^3/uL (1.8-7.7); Neutrophils % 92.6 %; Nucleated Red Blood Cells % 0 %; Platelet Count 357 10^3/cmm (157-399); Red Blood Count 2.49 10^6/uL (3.85-5.65); Red Cell Distribution Width 13.4 % (12.1-15.1); White Blood Count 12.34 10^3/uL (3.29-11.43)
[2023-08-24 04:09] LABS: Partial Thromboplastin Time 47.3 SECONDS (23.9-36.7)
[2023-08-24 04:13] LABS: Alanine Aminotransferase 50 U/L (0-41); Albumin Level 2.6 g/dL (3.5-5.2); Alkaline Phosphatase 318 U/L (40-130); Anion Gap 15.9 (5-19); Aspartate Amino Transferase 44 U/L (0-40); Blood Urea Nitrogen 15 mg/dL (8-23); Carbon Dioxide 27 mmol/L (22-29); Chloride 96 mmol/L (98-107); Creatinine Clr Calc Pharmacy 66.9946; Globulin 3.6 g/dL (1.3-4.6); Glucose 305 mg/dL (65-115); Osmolality Calculated 290 mOsm/kg (285-295); Potassium 4.9 mmol/L (3.5-5.1); Sodium 134 mmol/L (136-145); Total Bilirubin 0.2 mg/dL (0.15-1.2); Total Protein 6.2 g/dL (6.6-8.7)
[2023-08-24] MEDS: heparin 5,000 unit/mL INJ 1 mL IV (04:20)
[2023-08-24 04:23] LABS: ABG PCO2 50.7 mmHg (35-45); ABG PH Result 7.43 (7.35-7.45); Base Excess ABG 8.4 mmol/L (-2.0-2.0); Blood Gas Allen Test Pos; Blood Gas Sample Site Brachial, right; Blood Gas Sample Type Arterial; HCO3 ABG 33.7 mmol/L (22-26); Oxygen Device NC
[2023-08-24] MEDS: folic acid 1 mg Tablet PO (05:48)
[2023-08-24] MEDS: piperacillin-tazobactam 3.375 GM in sodium chloride 0.9% (plus) 50 ML IV (05:50)
[2023-08-24] MEDS: metoprolol tartrate 25 mg Tablet 12.5 MG PO (08:42)
[2023-08-24 09:02] LABS: Basophils % 0.1 %; Hematocrit 25.1 % (37-53); Lymphocytes # 0.7 10^3/uL (0.8-4.8); Lymphocytes % 5.4 %; Mean Corpuscular HGB Conc 30.7 g/dL (30-55); Mean Corpuscular Hemoglobin 30.4 pg (27-33); Mean Corpuscular Volume 99.2 fl (82-101); Mean Platelet Volume 10.4 fL (7.4-10.4); Monocytes # 0.3 10^3/uL (0.2-0.9); Monocytes % 2.3 %; Neutrophils # 11.06 10^3/uL (1.8-7.7); Neutrophils % 91.5 %; Nucleated Red Blood Cells % 0 %; Platelet Count 282 10^3/cmm (157-399); Red Blood Count 2.53 10^6/uL (3.85-5.65); Red Cell Distribution Width 13.6 % (12.1-15.1); White Blood Count 12.08 10^3/uL (3.29-11.43)
--- NOTE | 2023-08-24 09:42 | PM.DCS ---
Discharge Providers Date of Admission: 08/23/23 02:45 Date of Discharge: August 24, 2023 Attending Provider at Admission: Chiqui Flor MD Attending Provider at Discharge: Neo Cerna MD Primary Care Provider: Grace Wallis MD Diagnoses at Discharge Discharge Diagnosis (1) High risk medication use: Status: Acute (2) Pulmonary embolism: Status: Acute Qualifiers: Acute cor pulmonale presence: with acute cor pulmonale Chronicity: acute Pulmonary embolism type: other Qualified Code(s): I26.09 - Other pulmonary embolism with acute cor pulmonale (3) CAD (coronary artery disease): Status: Acute Qualifiers: Coronary Disease-Associated Artery/Lesion type: [place] artery [place] vs. transplanted heart: [place] heart Associated angina: without angina Qualified Code(s): I25.10 - Atherosclerotic heart disease of [place] coronary artery without angina pectoris (4) Seropositive rheumatoid arthritis of multiple sites: Status: Acute (5) COPD (chronic obstructive pulmonary disease): Status: Acute Qualifiers: COPD type: unspecified COPD Qualified Code(s): J44.9 - Chronic obstructive pulmonary disease, unspecified (6) Right upper lobe pulmonary nodule: Status: Acute (7) Right upper lobe pneumonia: Status: Acute Qualifiers: Pneumonia type: due to unspecified organism Qualified Code(s): J18.9 - Pneumonia, unspecified organism Reason for Visit Reason for Visit: [facility] Hospital Course Hospital Course yanira Melara is a 73 year old male With past medical history of with past medical history of high risk medication use, rheumatoid arthritis, COPD gold class D, smoker, chronic low back pain, CAD, hypertension, peripheral neuropathy presents to the hospital today brought in by his and daughter for complaints of increasing weakness shortness of breath for the last 2 to 3 weeks Patient was diagnosed with pneumonia, nonocclusive PE, he was admitted to the ICU on heparin drip, he was put on broad-spectrum IV antibiotics levofloxacin, vancomycin and Zosyn for double antipseudomonal coverage patient remained afebrile, leukocytosis improved, echo did not see significant wall motion abnormality despite the right heart strain, patient's oxygen requirement did not worsen at baseline he requires 4 L, he did not complain of any chest pain, remained hemodynamic stable please note there is a drop in hemoglobin however repeat CBC has not shown significant worsening patient is not hypotensive I have discontinued heparin drip will discharge patient on Eliquis I have instructed him to monitor his stool color if he notices dark black tarry stool then he may stop taking Eliquis, he is not a good candidate for endoscopy considering his advanced COPD. At the time of discharge patient will get antibiotics for his pneumonia and Eliquis with instructions to watch for any signs of GI bleed. He is afebrile requiring 4 L of oxygen at time of discharge. He is not sure if he is going to quit but stating that nicotine patch really helped to ease his anxiety. Physical Exam Narrative: Awake and alert Currently on 4 L GCS 15 Pleasant cooperative Nonfocal neuroexam Discharge Data Studies Completed and Pending Completed Studies During Hospitalization Category Date Time Status CT angio chest PE protcl [id number] Stat Cat Scan 08/22/23 22:50 Completed XR chest 1V portable [id number] Stat Exams 08/22/23 21:32 Completed CV. echo complete* [id number] Stat Ultrasound 08/23/23 00:35 Completed Pending at discharge Category Date Time Status Arterial Blood Gas W/O Coox AM LABS Lab 08/25/23 04:00 Ordered Blood Culture Stat Lab 08/22/23 22:10 Results Complete Blood Count w/Auto Q8H Lab 08/24/23 12:00 Ordered Complete Blood Count w/Auto Q8H Lab 08/24/23 20:00 Ordered Complete Blood Count w/Auto Q8H Lab 08/25/23 04:00 Ordered Complete Blood Count w/Auto Q8H Lab 08/25/23 12:00 Ordered Complete Blood Count w/Auto Q8H Lab 08/25/23 20:00 Ordered Occult Blood Stool [Immunochemical Fecal OCB] Routine Lab 08/23/23 01:13 Uncollected PTT [Partial Thromboplastin Time] Timed Lab 08/24/23 10:22 Ordered Sputum Culture and Gram Stain Stat Lab 08/23/23 06:15 Results Vancomycin Trough Timed Lab 08/24/23 12:45 Ordered Radiology Impressions Chest X-Ray 08/22/23 21:32 IMPRESSION: 1. Interval appearance of moderate to severe pneumonia in the right upper and mid lung carias. 2. Stable COPD . Chest CTA 08/22/23 22:50 IMPRESSION: 1. Severe paraseptal emphysema. 2. Severe calcified coronary artery disease. 3. Nonocclusive segmental pulmonary embolus right upper lobe. 4. Right heart strain with 1.5 cm RV/LV ratio. 5. 18 mm lateral wall left ventricle and 16 mm septal wall consistent with hypertrophic cardiomyopathy. 6. Severe centrilobular emphysema. 7. Interval appearance of moderate to severe pneumonia in the right upper and mid lung field including portions of the superior segment right lower lobe and right upper lobe. COMMENTS: The presence of pulmonary emphysema on CT is an independent risk factor for lung cancer. In the absence of a history or active diagnosis of lung cancer, it is recommended that this patient with emphysema be evaluated for enrollment in a low dose CT lung cancer screening program. ADDENDUM: 08/23/23 0015 Impression: 4. Right heart strain with RV/LV ratio 1.5. THIS REPORT CONTAINS FINDINGS THAT MAY BE CRITICAL TO PATIENT CARE. The findings were verbally communicated via telephone conference with Oneil Mazariegos at 12:13 AM CDT on 08/23/2023. The findings were acknowledged and understood. Laboratory Results WBC 12.08 10^3/uL (3.29-11.43) H 08/24/23 08:41 RBC 2.53 10^6/uL (3.85-5.65) L 08/24/23 08:41 Hgb 7.70 g/dL (11.27-16.99) L 08/24/23 08:41 Hct 25.1 % (37-53) L 08/24/23 08:41 MCV 99.2 fl (82-101) 08/24/23 08:41 MCH 30.4 pg (27-33) 08/24/23 08:41 MCHC 30.7 g/dL (30-55) 08/24/23 08:41 RDW 13.6 % (12.1-15.1) 08/24/23 08:41 Plt Count 282 10^3/cmm (157-399) 08/24/23 08:41 MPV 10.4 fL (7.4-10.4) 08/24/23 08:41 Neut % (Auto) 91.5 % 08/24/23 08:41 Lymph % (Auto) 5.4 % 08/24/23 08:41 [place] % (Auto) 2.3 % 08/24/23 08:41 Eos % (Auto) 0.0 % 08/24/23 08:41 Baso % (Auto) 0.1 % 08/24/23 08:41 Neut # (Auto) 11.06 10^3/uL (1.8-7.7) H 08/24/23 08:41 Lymph # (Auto) 0.7 10^3/uL (0.8-4.8) L 08/24/23 08:41 [place] # (Auto) 0.3 10^3/uL (0.2-0.9) 08/24/23 08:41 Eos # (Auto) 0.0 10^3/uL (0.0-0.8) 08/24/23 08:41 Baso # (Auto) 0.0 10^3/uL (0.0-0.1) 08/24/23 08:41 Nucleated RBC % (auto) 0 % 08/24/23 08:41 Nucleated RBCs # 0.0 /100WBC 08/24/23 08:41 PT 14.20 SECONDS (12.1-14.9) 08/23/23 03:40 INR 1.06 (0.8-1.2) 08/23/23 03:40 APTT 47.3 SECONDS (23.9-36.7) H 08/24/23 03:44 Specimen Type Arterial 08/24/23 04:15 Sample Site Brachial, right 08/24/23 04:15 ABG pH 7.43 (7.35-7.45) 08/24/23 04:15 ABG pCO2 50.7 mmHg (35-45) H 08/24/23 04:15 ABG pO2 79.0 mmHg (80.0-100.0) L 08/24/23 04:15 ABG PO2/FiO2 Ratio 187 08/23/23 04:23 ABG HCO3 33.7 mmol/L (22-26) H 08/24/23 04:15 ABG Base Excess 8.4 mmol/L (-2.0-2.0) H 08/24/23 04:15 [place] Test Pos 08/24/23 04:15 Hematocrit 25.0 % (42-52) L 08/24/23 04:15 O2 Delivery Device Nc 08/24/23 04:15 O2 Liters/Min 4.0 % 08/24/23 04:15 FiO2 42.0 % 08/23/23 04:23 Cutter First ID Drema2 08/24/23 04:15 Sodium 134 mmol/L (136-145) L 08/24/23 03:44 Potassium 4.9 mmol/L (3.5-5.1) 08/24/23 03:44 Chloride 96 mmol/L (98-107) L 08/24/23 03:44 Carbon Dioxide 27 mmol/L (22-29) 08/24/23 03:44 Anion Gap 15.9 (5-19) 08/24/23 03:44 BUN 15 mg/dL (8-23) 08/24/23 03:44 Creatinine 0.5 mg/dL (0.7-1.2) L 08/24/23 03:44 GFR Calculation Not Reportable 08/24/23 03:44 Glucose 305 mg/dL (65-115) H 08/24/23 03:44 Calculated Osmolality 290 mOsm/kg (285-295) 08/24/23 03:44 Lactic Acid 2.4 mmol/L (0.5-2.2) H 08/22/23 22:06 Lactic Acid (Sepsis) 1.8 mmol/L (0.5-2.2) 08/23/23 01:20 Calcium 9.0 mg/dL (8.5-10.5) 08/24/23 03:44 Magnesium 1.7 mg/dL (1.7-2.3) 08/23/23 03:40 Iron 14 ug/dL (59-158) L 08/23/23 03:40 TIBC 142 mcg/dl 08/23/23 03:40 % Saturation 9.8 % (20-50) L 08/23/23 03:40 Unsat Iron Binding 128 ug/dL (112-347) 08/23/23 03:40 Ferritin 317 ng/mL (30-400) 08/23/23 03:40 Total Bilirubin 0.2 mg/dL (0.15-1.2) 08/24/23 03:44 AST 44 U/L (0-40) H 08/24/23 03:44 ALT 50 U/L (0-41) H 08/24/23 03:44 Alkaline Phosphatase 318 U/L (40-130) H 08/24/23 03:44 Troponin T Baseline 56 ng/L (0-15) H 08/22/23 22:06 Troponin T 120 Minute 53.88 ng/L (0-15) H 08/22/23 23:36 Delta Troponin T -2.12 ABS# (0-10) L 08/22/23 23:36 Troponin T Hi Sens 6Hr 45.15 ng/L (0-15) H 08/23/23 03:40 Troponin T Hi Sens 6Hr Delta -10.85 ng/L (0-12) L 08/23/23 03:40 NT-Pro-B Natriuret Pep 833 pg/mL (0-125) H 08/22/23 22:06 Total Protein 6.2 g/dL (6.6-8.7) L 08/24/23 03:44 Albumin 2.6 g/dL (3.5-5.2) L 08/24/23 03:44 Globulin 3.6 g/dL (1.3-4.6) 08/24/23 03:44 Procalcitonin 0.20 ng/mL (0-0.5) 08/22/23 22:06 Urine Color Yellow (Yellow) 08/22/23 22:45 Urine Appearance Clear (CLEAR) 08/22/23 22:45 Urine pH 6 (5-7) 08/22/23 22:45 Ur Specific [place] 1.015 (1.005-1.030) 08/22/23 22:45 Urine Protein 1+ (Negative) H 08/22/23 22:45 Urine Glucose (UA) Norm (Normal) 08/22/23 22:45 Urine Ketones Negative (Negative) 08/22/23 22:45 Urine Blood 3+ (Negative) H 08/22/23 22:45 Urine Nitrate Negative (Negative) 08/22/23 22:45 Urine Bilirubin Neg (Negative) 08/22/23 22:45 Urine Urobilinogen Norm mg/dL (Negative) 08/22/23 22:45 Ur Leukocyte Esterase Trace (Negative) H 08/22/23 22:45 Urine RBC 25-40 /hpf (0-2) H 08/22/23 22:45 Urine WBC 0-4 /hpf (0-5) H 08/22/23 22:45 Ur Squamous Epith Cells 0-4 /hpf (0-5) H 08/22/23 22:45 Amorphous Sediment Not Reportable 08/22/23 22:45 Urine Bacteria Trace /hpf (NONE) 08/22/23 22:45 Urine Mucus 1+ /hpf 08/22/23 22:45 Adenovirus (PCR) Not detected (NOT DETECT) 08/22/23 22:43 C. pneumoniae DNA (PCR) Not detected (NOT DETECT) 08/22/23 22:43 Coronavirus 229E (PCR) Not detected (NOT DETECT) 08/22/23 22:43 Human Metapneumovir PCR Not detected (NOT DETECT) 08/22/23 22:43 Influenza A (H1) PCR Not detected (NOT DETECT) 08/22/23 22:43 Influ A (H1/09) PCR Not detected (NOT DETECT) 08/22/23 22:43 Influenza A (H3) PCR Not detected (NOT DETECT) 08/22/23 22:43 Influenza Type A (PCR) Not detected (NOT DETECT) 08/22/23 22:43 Influenza Type B (PCR) Not detected (NOT DETECT) 08/22/23 22:43 M. pneumoniae (PCR) Not detected (NOT DETECT) 08/22/23 22:43 Parainfluenza 1 (PCR) Not detected (NOT DETECT) 08/22/23 22:43 Parainfluenza 2 (PCR) Not detected (NOT DETECT) 08/22/23 22:43 Parainfluenza 3 (PCR) Not detected (NOT DETECT) 08/22/23 22:43 Parainfluenza 4 (PCR) Not detected (NOT DETECT) 08/22/23 22:43 RSV Type A (PCR) Not detected (NOT DETECT) 08/22/23 22:43 RSV Type B (PCR) Not detected (NOT DETECT) 08/22/23 22:43 Entero/Rhino (PCR) Not detected (NOT DETECT) 08/22/23 22:43 SARS-CoV-2 (PCR) Not detected (NOT DETECT) 08/22/23 22:43 Vitals Last Vital Signs Temp 98.9 F 08/24/23 07:46 Pulse 73 08/24/23 07:46 Resp 16 08/24/23 07:46 BP 127/69 08/24/23 07:46 Pulse Ox 91 08/24/23 07:46 O2 Del Method Nasal Cannula 08/24/23 07:46 O2 Flow Rate 4.5 08/24/23 07:46 Discharge Plan Discharge Patient Disposition: Home Condition: Stable Prescriptions: New nicotine 7 mg/24 hr patch 24 hour 1 patch transdermal DAILY Qty: 14 0RF Rx Instructions: Once you finish 14 mg patch then take 7 milligram for 2 weeks nicotine [Nicoderm CQ] 21 mg/24 hr patch 24 hour 1 patch transdermal DAILY Qty: 14 0RF Eliquis 5 mg tablet 5 mg PO BID Qty: 120 4RF Rx Instructions: Stop if you notice dark-colored stools omeprazole 20 mg tablet,delayed release (DR/EC) 20 mg PO DAILY Qty: 90 0RF sucralfate 1 gram tablet 1 g PO BID Qty: 60 0RF doxycycline hyclate 100 mg tablet 100 mg PO BID 7 Days Qty: 14 0RF levofloxacin 750 mg tablet 750 mg PO DAILY 7 Days Qty: 7 0RF nicotine 14 mg/24 hr patch 24 hour 1 patch transdermal DAILY Qty: 14 0RF Rx Instructions: take after you finish 21 mg nicotine patch to 2 weeks This will be you also for 2-week then take 7 mg for 2 weeks Continued gabapentin 400 mg capsule 800 mg PO BID metformin 1,000 mg tablet 1,000 mg PO BID metoprolol tartrate 25 mg tablet 12.5 mg PO BID (DME) Oxygen See Rx Instructions .Route .MEDSUPPLY Qty: 1 0RF Rx Instructions: Increase to 4L/NC. nitroglycerin [Nitrostat] 0.4 mg tablet, sublingual 0.4 mg SUBLINGUAL Q5M PRN (Reason: Chest Pain) Qty: 30 6RF Rx Instructions: max 3 doses folic acid 1 mg tablet 1 mg PO QAM Qty: 90 1RF prednisone 20 mg tablet See Rx Instructions PO .COMPLEX PRN (Reason: joint pain flare) Qty: 60 0RF Rx Instructions: take 2 tab daily for 7 days as needed for arthritis flare PO PRN; Humira Pen 40 mg/0.8 mL pen injector kit 40 mg SUBCUT Q14D Qty: 2 5RF multivitamin Tablet 1 tab PO DAILY azithromycin 250 mg Tablet 250 mg PO .ON MON,WED,FRI albuterol sulfate 90 mcg/actuation Hfa Aerosol Inhaler 2 puff INHALATION Q4H PRN (Reason: Shortness Of Breath) guaifenesin 400 mg Tablet 400 mg PO BID PRN (Reason: Congestion) atorvastatin 40 mg Tablet 40 mg PO QPM lisinopril 10 mg Tablet 10 mg PO QPM cholecalciferol (vitamin D3) 50 mcg (2,000 unit) Capsule 50 mcg PO QAM methotrexate sodium 2.5 mg tablet 15 mg PO Q7D Rx Instructions: on ipratropium-albuterol 0.5 mg-3 mg(2.5 mg base)/3 mL Solution For Nebulization 3 ml INHALATION Q6H PRN (Reason: Shortness Of Breath) trazodone 50 mg Tablet 50 mg PO QPM PRN (Reason: Sleep) hydralazine 25 mg Tablet 25 mg PO BID [place] 10-325 mg Tablet 1 tab PO Q6H PRN (Reason: Pain) montelukast 10 mg tablet 10 mg PO DAILY Novolog FlexPen U-100 Insulin 100 unit/mL (3 mL) Insulin Pen See Rx Instructions .ROUTE .COMPLEX Rx Instructions: INJECT PER SLIDING SCALE NEEDED. Discontinued Aspir-81 81 mg Tablet,Delayed Release (Dr/Ec) 81 mg PO DAILY Discharge Orders: Discharge Order (Routine); Ordered 08/24/23 Ordered By: Neo Cerna Referrals: Grace Wallis MD [Primary Care Provider] - 4-7 days (We have notified your physician's clinic of the need for a follow-up appointment to be scheduled. If you have not heard from them within the next 2 business days, please call them directly. ) Princess Maria MD [Referring] - 7-10 days Discharge Activity: Increase activity as tolerated Patient Instructions: Opioid Safety Activity Restrictions/Additional Instructions: We are giving you Eliquis 5mg twice a day which is a blood thinner please watch your stool color if you notice dark-colored stools that is probably a sign of gastric ulcer bleeding you can stop taking Eliquis at that point We are giving you antibiotics for 7 days for pneumonia. I am also giving you lung doctor referral Discharge Attestations Time Spent in Discharge Care*: greater than 30 min Quality Metrics Clinical Quality Measures [ No reported AMI, CVA or VTE this stay] Coding Level of Care Code Acute Code for Chg Fwd Diagnoses High risk medication use Z79.899 Pulmonary embolism I26.09 Acute cor pulmonale presence: with acute cor pulmonale Chronicity: acute Pulmonary embolism type: other Coronary artery disease involving [place] coronary artery of [place] heart without angina pectoris I25.10 Coronary Disease-Associated Artery/Lesion type: [place] artery [place] vs. transplanted heart: [place] heart Associated angina: without angina Seropositive rheumatoid arthritis of multiple sites M05.79 Chronic obstructive pulmonary disease, unspecified COPD type J44.9 COPD type: unspecified COPD Right upper lobe pulmonary nodule R91.1 Right upper lobe pneumonia J18.9 Pneumonia type: due to unspecified organism
== END 2023-08-24 11:36 | disposition home or self-care (01) | DRG 175 ==
LOC: ER 08-23 00:55 → ER IP 08-23 02:51 → ICU 08-23 05:23 → MEDSURG 08-23 23:41
PROVIDERS: Admitting Provider Internal Medicine; Emergency Provider Emergency Medicine; PCP Family Medicine; Visit Provider Internal Medicine
DX: I26.09 Other pulmonary embolism with acute cor pulmonale (principal); J18.9 Pneumonia, unspecified organism; D84.821 Immunodeficiency due to drugs; J96.11 Chronic respiratory failure with hypoxia; I42.2 Other hypertrophic cardiomyopathy; J43.2 Centrilobular emphysema; F17.210 Nicotine dependence, cigarettes, uncomplicated; I25.10 Atherosclerotic heart disease of native coronary artery without angina pectoris; Z95.5 Presence of coronary angioplasty implant and graft; Z99.81 Dependence on supplemental oxygen; M05.9 Rheumatoid arthritis with rheumatoid factor, unspecified; Z79.631 Long term (current) use of antimetabolite agent; R91.1 Solitary pulmonary nodule; R29.6 Repeated falls; Z79.84 Long term (current) use of oral hypoglycemic drugs; I10 Essential (primary) hypertension; R31.29 Other microscopic hematuria; E11.42 Type 2 diabetes mellitus with diabetic polyneuropathy; G89.29 Other chronic pain; M54.40 Lumbago with sciatica, unspecified side
CPT/HCPCS: 36415; 36600; 71045; 71275; 80053; 81001; 82728; 82803; 83540; 83550; 83605; 83735; 83880; 84145; 84484; 85025; 85610; 85730; 86403; 87040; 87070; 87086; 87205; 87449; 87486; 87581; 87633; 93005; 93306; 94640; 94664; 96365; 96366; 96367; 96375; 99285; J1644; J1956; J2405; J2543; J2919; J3370; J7030; Q9967

== ENCOUNTER 2023-09-02 10:41 | Inpatient (IN) | payer OTHER, MEDICARE, SELFPAY ==
[2023-09-02] VITALS (9 sets, daily range): BP systolic 97–140; BP diastolic 54–71; PULSE 84–96; RESP 20–33; TEMP 36.9; O2SAT 96–98
--- NOTE | 2023-09-02 11:59 | XRR_ITS ---
PROCEDURE INFORMATION: Exam: XR Chest Exam date and time: 09/02/2023 12:08 PM Age: 73 years old Clinical indication: Shortness of breath; Prior surgery; Surgery date: 6+ months; Surgery type: Cardiac stent x 1 (2016); Patient HX: Ncreased SOB TECHNIQUE: Imaging protocol: Radiologic exam of the chest. Views: 1 view. COMPARISON: CT angio chest PE protcl [id number] 08/22/2023 11:24 PM FINDINGS: Lungs: Lungs are hyperinflated. Severe chronic emphysematous changes of the lungs with scattered consolidative opacities and fibrous scarring, most prominent in the right upper lung. Pleural spaces: No large pleural effusion. No distinct pneumothorax. Heart/Mediastinum: Cardiomediastinal silhouette is midline and normal in size. Bones/joints: No acute osseous findings. XR/XR chest 1V portable [id number] IMPRESSION: Severe chronic emphysematous changes of the lungs with scattered consolidative opacities and fibrous scarring, most prominent in the right upper lung. Overlying infectious infiltrate is not excluded.
--- NOTE | 2023-09-02 12:04 | ECG_ITS ---
[facility] Test Date: 2023-09-02 Pat Name: Albert Melara Department: Room: Gender: Male [employer]: : 1950 Requested By: Yohana Diaz Order Number: [id number] Alyse MD: Elinor Edouard M.D. Measurements Intervals [place] Rate: 93 P: 73 NC: 173 QRS: 85 QRSD: 104 T: 68 QT: 322 QTc: 400 Interpretive Statements SINUS RHYTHM RIGHT ATRIAL ENLARGEMENT [0.3mV P-WAVE] LEFT ATRIAL ENLARGEMENT [-0.15mV P-WAVE IN V1/V2] Compared to ECG 08/23/2023 03:45:53 No significant changes Electronically Signed On 09-02-2023 16:18:30 CDT by Elinor Edouard M.D. [id number]
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
[2023-09-02 12:27] LABS: ABG PCO2 50.3 mmHg (35-45); ABG PH Result 7.43 (7.35-7.45); Alveolar-Arterial Oxygen Gradi 8.9 mmHg (5-10); Arterial Blood Gas Hematocrit 44.9 % (42-52); Base Excess ABG 7.6 mmol/L (-2.0-2.0); Blood Gas Allen Test Pos; Blood Gas Operator Identificat glc; Blood Gas Sample Site Radial, right; Blood Gas Sample Type Arterial; Carboxyhemoglobin 4.9 %THgb (0.4-20.1); HCO3 ABG 33.5 mmol/L (22-26); HGB O2 Sat 92.1 % (95-100); Ionized Calcium Level - ABG 1.2 mmol/L (1.1-1.4); Methemoglobin 1.1 % (0.4-1.5); Oxygen Device NC; PO2 FiO2 Ratio Arterial Blood 303; Total Hemoglobin 14.7 g/dL (14-18)
[2023-09-02 12:44] LABS: Basophils % 0.2 %; Eosinophils # 0.1 10^3/uL (0.0-0.8); Eosinophils % 0.4 %; Hematocrit 26.8 % (37-53); Lymphocytes # 0.9 10^3/uL (0.8-4.8); Lymphocytes % 4.9 %; Mean Corpuscular HGB Conc 31.3 g/dL (30-55); Mean Corpuscular Volume 95.7 fl (82-101); Mean Platelet Volume 10.3 fL (7.4-10.4); Monocytes # 0.9 10^3/uL (0.2-0.9); Neutrophils # 15.35 10^3/uL (1.8-7.7); Neutrophils % 88.9 %; Nucleated Red Blood Cells % 0 %; Platelet Count 406 10^3/cmm (157-399); Red Cell Distribution Width 14.3 % (12.1-15.1); White Blood Count 17.26 10^3/uL (3.29-11.43)
[2023-09-02 12:57] LABS: INR 1.74 (0.8-1.2)
[2023-09-02 12:58] LABS: Partial Thromboplastin Time 43.7 SECONDS (23.9-36.7)
[2023-09-02 13:05] LABS: Troponin(5th) Baseline 47 ng/L (0-15)
[2023-09-02 13:12] LABS: Alanine Aminotransferase 25 U/L (0-41); Albumin Level 2.8 g/dL (3.5-5.2); Alkaline Phosphatase 375 U/L (40-130); Anion Gap 14.4 (5-19); Aspartate Amino Transferase 21 U/L (0-40); Blood Urea Nitrogen 15 mg/dL (8-23); Calcium 8.9 mg/dL (8.5-10.5); Carbon Dioxide 30 mmol/L (22-29); Chloride 96 mmol/L (98-107); Globulin 3.7 g/dL (1.3-4.6); Glucose 217 mg/dL (65-115); NT Pro B Type Natriuretic Pept 933 pg/mL (0-125); Osmolality Calculated 289 mOsm/kg (285-295); Potassium 4.4 mmol/L (3.5-5.1); Sodium 136 mmol/L (136-145); Total Bilirubin 0.2 mg/dL (0.15-1.2); Total Protein 6.5 g/dL (6.6-8.7)
[2023-09-02 13:20] LABS: Creatinine Clr Calc Pharmacy 70.6853
[2023-09-02 13:25] LABS: Urine Appearance Cloudy (CLEAR); Urine Color Dark Yellow (Yellow)
[2023-09-02 13:26] LABS: Bacteria Urine 1+ /hpf; Bilirubin Urine 1+ (Negative); Blood Urine 3+ (Negative); Glucose Urine UA Norm (Normal); Ketones Urine Negative (Negative); Leukocyte Esterase Urine Negative (Negative); Nitrate Urine Negative (Negative); Protein Urine 1+ (Negative); RBC Urine TOO NUMEROUS TO CNT /hpf (0-2); Specific Gravity, Urine 1.015 (1.005-1.030); Urobilinogen Urine Norm (Negative); pH Urine 6 (5-7)
[2023-09-02 13:27] LABS: Add Urine Culture? Yes
--- NOTE | 2023-09-02 14:04 | ECG_ITS ---
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 Measurements Intervals [place] Rate: 89 P: 76 AL: 184 QRS: 83 QRSD: 96 T: 71 QT: 321 QTc: 392 Interpretive Statements SINUS RHYTHM RIGHT ATRIAL ENLARGEMENT [0.3mV P-WAVE] LEFT ATRIAL ENLARGEMENT [-0.15mV P-WAVE IN V1/V2] Compared to ECG 09/02/2023 12:37:48 No significant changes Electronically Signed On 09-02-2023 17:02:17 CDT by Elinor Edouard M.D. [id number]
--- NOTE | 2023-09-02 14:13 | CTR_ITS ---
PROCEDURE INFORMATION: Exam: CT Chest Without Contrast; Diagnostic Exam date and time: 09/02/2023 2:45 PM Age: 73 years old Clinical indication: Abnormal findings; Abnormal radiologic exam of lung or chest; Additional info: Abnormal chest xray TECHNIQUE: Imaging protocol: Diagnostic computed tomography of the chest without contrast. Radiation optimization: All CT scans at this facility use at least one of these dose optimization techniques: automated exposure control; mA and/or kV adjustment per patient size (includes targeted exams where dose is matched to clinical indication); or iterative reconstruction. COMPARISON: 1. CT angio chest PE protcl [id number] 08/22/2023 11:24 PM 2. CR (CHEST, ) 09/02/2023 12:[address] angio chest PE protcl [id number] 04/07/2018 7:[address] lung screening [id number] 05/25/2023 8:04 AM RADIATION DOSE METRICS: Total DLP (mGy-cm): 285.91 FINDINGS: Trachea: There is mild narrowing of the trachea in the mediolateral dimension without significant stenosis. Lungs: There is severe upper lung predominant centrilobular emphysema. There are bilateral apical bullae. Centrilobular emphysema is similar to findings on 04/07/2018. There is extensive consolidation mixed with bullae throughout the right upper lobe and superior segment of the right lower lobe. There is mild ill-defined subpleural fine reticular opacity in the right lower lobe. There is subsegmental atelectasis and scarring in the left upper lobe which is not significantly changed since 05/25/2023. Consolidation in the right upper lobe is new since 05/25/2023 and stable since 08/22/2023. There is mild central bronchial wall thickening bilaterally. Pleural spaces: There is no pleural effusion or pneumothorax. Heart: Heart size is normal. There is no pericardial effusion. Lymph nodes: There are small intrapulmonary lymph nodes along the right anterior inferior costal pleura. There is no mediastinal or hilar lymphadenopathy. Vasculature: There is moderate aortic atherosclerotic disease. There is an incompletely imaged saccular aneurysm of the infrarenal abdominal aorta measuring up to 3.1 cm diameter. Gallbladder and biliary ducts: The common bile duct and central intrahepatic ducts are moderately dilated. The gallbladder is unremarkable but incompletely visualized. No stones are seen. Kidneys and ureters: There are nonobstructive stones in both kidneys. Bones/joints: Bones are unremarkable. Soft tissues: The extrathoracic soft tissues are unremarkable. CT/CT chest wo con [id number] IMPRESSION: 1. Extensive consolidation in the right upper lung is new since 05/25/2023 and similar to findings on 08/22/2023. Findings are suspicious for infection superimposed upon emphysema. 2. Severe centrilobular emphysema with large upper lung bullae, similar to findings in 2019. 3. Incompletely imaged upper abdominal aortic aneurysm. Recommend nonemergent CT or ultrasound evaluation of the abdominal aorta. 4. Incidental findings above. COMMENTS: The presence of pulmonary emphysema on CT is an independent risk factor for lung cancer. In the absence of a history or active diagnosis of lung cancer, it is recommended that this patient with emphysema be evaluated for enrollment in a low dose CT lung cancer screening program.
[2023-09-02 14:27] LABS: Reflex Lactate Order REFLEX LACTIC ORDERD
[2023-09-02] MEDS: cefepime 2,000 MG in sodium chloride 0.9% (plus) 50 ML 100 MG IV (14:29)
[2023-09-02] MEDS: HYDROcodone-acetaminophen 10-325 mg Tablet 1 TAB PO ×2 (15:35→20:24)
[2023-09-02] MEDS: methylPREDNISolone sod succ 125 mg/2 mL INJ IVP (15:55)
[2023-09-02] MEDS: linezolid premix 600 MG/300 ML PREMIX 300 MG IV (15:56)
[2023-09-02] MEDS: meropenem 500 mg SDV IVP (15:57)
[2023-09-02 16:06] LABS: Lactic Acid level (Lactate) 2.4 mmol/L (0.5-2.2)
[2023-09-02] MEDS: albuterol 2.5 mg/3 mL Neb INHALATION (17:11)
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
--- NOTE | 2023-09-02 18:04 | ECG_ITS ---
[facility] Test Date: 2023-09-02 Pat Name: Albert Melara Department: Room: Gender: Male Lab Director: : 1950 Requested By: Yohana Diaz Order Number: [id number] Cullen MD: Elinor Edouard M.D. Measurements Intervals [place] Rate: 88 P: 75 OH: 181 QRS: 84 QRSD: 96 T: 71 QT: 337 QTc: 410 Interpretive Statements SINUS RHYTHM RIGHT ATRIAL ENLARGEMENT [0.3mV P-WAVE] LEFT ATRIAL ENLARGEMENT [-0.15mV P-WAVE IN V1/V2] Compared to ECG 09/02/2023 14:25:16 No significant changes Electronically Signed On 09-03-2023 12:27:43 CDT by Elinor Edouard M.D. [id number]
--- NOTE | 2023-09-02 18:07 | USR_ITS ---
PROCEDURE INFORMATION: Exam: US Duplex Lower Extremity Veins, Bilateral Exam date and time: 09/02/2023 6:42 PM Age: 73 years old Clinical indication: Screening exam; Dvt TECHNIQUE: Imaging protocol: Real-time duplex ultrasound of the bilateral extremities with 2-D clark scale, color Doppler flow and spectral waveform analysis including responses to compression and other maneuvers (when performed) with image documentation. Complete exam focused on the lower extremity veins. COMPARISON: CT angio chest w abd pel w con 12/24/2020 1:23 AM FINDINGS: Right deep veins: Unremarkable. The common femoral, femoral, proximal profunda femoral and popliteal veins are patent without thrombus. Normal Doppler waveforms. Normal compressibility and/or augmentation response. Left deep veins: Unremarkable. The common femoral, femoral, proximal profunda femoral and popliteal veins are patent without thrombus. Normal Doppler waveforms. Normal compressibility and/or augmentation response. Superficial veins: Greater saphenous veins at the saphenofemoral junctions are patent bilaterally without thrombus. Soft tissues: Subcutaneous edema in the lower legs bilaterally. US/CV venous duplex [facility] [id number] IMPRESSION: No evidence of deep vein thrombosis.
[2023-09-02] MEDS: nicotine 14 mg Patch 1 PATCH TRANSDERMA (18:28)
[2023-09-02 18:49] LABS: Troponin 5 6HR 34.58 ng/L (0-15)
[2023-09-02 18:50] LABS: Troponin 5 6HR Delta -12.42 ng/L (0-12)
[2023-09-02] MEDS: vancomycin 1,500 MG/300 ML PIGGYBACK 200 MG IV (22:23)
[2023-09-02] MEDS: trazodone 50 mg Tablet PO (22:27)
[2023-09-02] MEDS: piperacillin-tazobactam 3.375 GM in sodium chloride 0.9% (plus) 50 ML IV (23:54)
[2023-09-03] VITALS (21 sets, daily range): BP systolic 101–136; BP diastolic 55–68; PULSE 52–83; RESP 12–21; TEMP 36.3–36.9; O2SAT 89–100
[2023-09-03] MEDS: ipratropium-albuterol 3 mL Neb INHALATION ×3 (02:28→21:10)
[2023-09-03] MEDS: HYDROcodone-acetaminophen 10-325 mg Tablet 1 TAB PO (03:11)
[2023-09-03 04:55] LABS: Basophils % 0.1 %; Hematocrit 23.2 % (37-53); Lymphocytes # 0.5 10^3/uL (0.8-4.8); Lymphocytes % 4.2 %; Mean Corpuscular Volume 93.5 fl (82-101); Mean Platelet Volume 10.5 fL (7.4-10.4); Monocytes # 0.2 10^3/uL (0.2-0.9); Monocytes % 1.3 %; Neutrophils # 10.72 10^3/uL (1.8-7.7); Neutrophils % 93.5 %; Nucleated Red Blood Cells % 0 %; Platelet Count 340 10^3/cmm (157-399); Red Blood Count 2.48 10^6/uL (3.85-5.65); White Blood Count 11.46 10^3/uL (3.29-11.43)
--- NOTE | 2023-09-03 05:08 | PC.NURSE ---
Spoke with regarding patients drop in H/H. Patient with hematuria on eliquis, urine is currently tea colored. ordered to hold eliquis, transfuse 1 unit PRBCs, and repeat H/H after completion of blood.
[2023-09-03 05:21] LABS: Alanine Aminotransferase 23 U/L (0-41); Albumin Level 2.4 g/dL (3.5-5.2); Alkaline Phosphatase 292 U/L (40-130); Anion Gap 12.7 (5-19); Aspartate Amino Transferase 21 U/L (0-40); Blood Urea Nitrogen 13 mg/dL (8-23); Calcium 8.9 mg/dL (8.5-10.5); Carbon Dioxide 33 mmol/L (22-29); Chloride 96 mmol/L (98-107); Creatinine Clr Calc Pharmacy 70.5283; Globulin 3.6 g/dL (1.3-4.6); Glucose 254 mg/dL (65-115); Osmolality Calculated 293 mOsm/kg (285-295); Potassium 4.7 mmol/L (3.5-5.1); Sodium 137 mmol/L (136-145); Total Bilirubin 0.2 mg/dL (0.15-1.2)
[2023-09-03] MEDS: morphine 4 mg/mL SDV 1 mL 2 MG IVP (05:48)
[2023-09-03] MEDS: piperacillin-tazobactam 3.375 GM in sodium chloride 0.9% (plus) 50 ML IV ×3 (07:49→22:40)
[2023-09-03] MEDS: hyDRALAzine 25 mg Tablet PO ×2 (09:07→18:24)
[2023-09-03] MEDS: gabapentin 400 mg Capsule 800 MG PO ×2 (09:08→18:23)
[2023-09-03] MEDS: metoprolol tartrate 25 mg Tablet 12.5 MG PO ×2 (09:09→18:32)
[2023-09-03] MEDS: oxyCODONE-APAP 10-325 mg Tablet 1 TAB PO ×4 (10:39→22:39)
[2023-09-03] MEDS: vancomycin 1,500 MG/300 ML PIGGYBACK 300 MG IV (10:40)
--- NOTE | 2023-09-03 16:38 | PC.NURSE ---
Received call from Dr. Damon regarding patient's code status. NO ONE is to change the patient's code status without talking to Dr. Damon first. This is to be communicated with oncoming nurse catherine and all staff forward.
--- NOTE | 2023-09-03 16:56 | PM.PN ---
Subjective Subjective: Hematuria appearing to clear. Only 1 blood clot small size noted in the bag. Currently rest of the urine is clear. Patient received 1 unit blood transfusion overnight. Will recheck hemoglobin today. 1 sputum AFB smear and PCR has been sent. Medications: Reviewed: Yes Vitals/I&O/Wt Last Vital Signs Temp 97.3 F L 09/03/23 16:00 Pulse 59 L 09/03/23 16:00 Resp 16 09/03/23 16:00 BP 101/55 09/03/23 16:00 Pulse Ox 98 09/03/23 16:00 O2 Del Method Nasal Cannula 09/03/23 16:00 O2 Flow Rate 4 09/03/23 09:14 09/03/23 09/03/23 09/03/23 06:59 14:59 22:59 Intake Total 350 / 820 960 / 960 Output Total 800 / 800 300 / 300 Balance -450 / 20 660 / 660 Weight last 48 hrs Weight 60.373 kg Weight 61.552 kg Weight 61.689 kg Physical Exam Narrative: General: No acute distress, AO x3 HEENT: PERRLA, pupils bilaterally equal and reactive, pallors not present Chest: Coarse breath sounds to auscultation bilaterally, right worse than left. CVS: S1-S2 regular, no murmurs, no tachycardia, no gallops, no rubs Abdomen: Soft, nontender, no organomegaly, bowel sounds present Neuro: No focal deficits, no facial deformity, AO x3, power 5/5 in all limbs Extremities: B/ L LE edema Data 09/03/23 04:31 09/03/23 04:31 Micro: Microbiology 09/02/23 20:34 Gram Stain - Final Sputum - Expectorated Sputum 09/02/23 12:53 Urine Culture - Preliminary Urine,Clean Catch 09/02/23 12:36 Blood Culture - Preliminary Blood NEGATIVE TO DATE 09/02/23 12:34 Blood Culture - Preliminary Blood NEGATIVE TO DATE A&P Assessment and plan (1) Pneumonia: (2) Pulmonary embolism: (3) Hematuria: (4) Chronic hypoxemic respiratory failure: (5) COPD (chronic obstructive pulmonary disease): Plan 73-year-old male with seropositive rheumatoid arthritis immunocompromised as a result of being on Humira chronically, currently admitted to the hospital after presenting with increasing generalized weakness, increased mucus and sputum production. CT of the chest taken today shows severe background emphysematous changes, multiple bullae, fibrocavitary lesions and bronchiectasis, however also noted a superimposed consolidation particularly worse on the right side. Patient was recently admitted to the hospital on August 23, 2023 for PE and pneumonia. Per personal review of comparative CT images, pneumonia appears to have progressed between August 22 to September 01. He has received outpatient antibiotic with levofloxacin and doxycycline, however with progression of symptoms. Given that patient is immunocompromised on Humira would need to complete evaluation for opportunistic infections in addition to bacterial pneumonia. Patient also has developed hematuria since this morning. He has been taking Eliquis at home. Urine does appear to be clearing at this time. Few clots are seen. Plan Admit patient to [facility]. Supplemental O2 to keep saturation 88 to 90%. Start empiric antibiotic coverage with piperacillin/tazobactam and IV vancomycin. Check sputum culture, MRSA nasal screen. Additionally workup for opportunistic infections including tuberculosis. I do not see a recent QuantiFERON on file, however patient states he has had several negative PPDs over the years. Check QuantiFERON screen. Check sputum AFB culture and MTB PCR on 3 serial sputum specimens taken 8-hour apart Isolation precautions for TB until results of MTB PCR are available. AFB smear will also delineate back if present. Peripheral fungal serology including urine histoplasma antigen, serum histoplasma antibodies, serum Coccidioides antibody, serum Blastomyces antibody, serum Fungitell, serum Aspergillus galactomannan. Hold Eliquis given hematuria. Will aim to resume once hematuria starts to improve consistently given patient had a recent PE. Insulin sliding scale for diabetes mellitus Continue home medications including metoprolol, pantoprazole, oxycodone APAP for pain management, gabapentin 800 mg twice daily and atorvastatin. Check lower extremity Doppler to assess for DVT given lower extremity swelling. Instructed patient to hold Humira until pneumonia resolves. He took last dose on 09/01/2023. Will send copy of this note to patient's outpatient software quality manager so that they are aware. Okay to use prednisone while Humira is on hold. DVT prophylaxis: SCDs for now, goal to resume Eliquis as soon as feasible. DNR/DNI September 03, 2023. Urine is starting to clear up. 1 small blood clot in bag from overnight. Hemoglobin 7.2 today. Ordered for 1 unit blood transfusion overnight. Will check H&H posttransfusion. Discussed with patient given recent PE would aim to resume anticoagulation as soon as feasible. Instead of Eliquis would prefer to use Lovenox given shorter half-life while he is in the hospital. Sputum AFB and MTB PCR x 1 sent to lab. Pending to specimen. Continue antibiotics piperacillin/tazobactam and IV vancomycin while undergoing evaluation. Leukocytosis appears to be improving. Ordered PT OT eval given extensive deconditioning. Will likely benefit from continued rehab postdischarge. Also ordered for speech therapy assessment to assess for possible aspiration as contributing to worsening pneumonia. Attestations Medical Necessity Statement*: Continued admission for IV antibiotics, blood transfusion today, recheck H&H, high risk initiation of anticoagulation. Coding Level of Care Code Acute Code for Chg Fwd High MDM includes number and complexity of problems actively addressed during encounter, amount and/or complexity of data reviewed/ordered and described risk of complication, morbidity or mortality of management as documented Diagnoses Pneumonia J18.9 Pulmonary embolism I26.99 Hematuria R31.9 Chronic hypoxemic respiratory failure J96.11 COPD (chronic obstructive pulmonary disease) J44.9
--- NOTE | 2023-09-03 17:16 | PC.PHAR ---
Lovenox 60mg daily instead of q12h due to Hematuria per Dr. Damon. Thank you, Crista Marie [facility]
[2023-09-03 17:25] LABS: Glucose Point of Care 399 mg/dL (70-110)
[2023-09-03 17:48] LABS: Hematocrit 23.8 % (37-53)
[2023-09-03] MEDS: enoxaparin 100 mg/mL Syringe 60 MG SUBCUT (18:23)
[2023-09-03] MEDS: atorvastatin 40 mg Tablet PO (18:24)
[2023-09-03] MEDS: insulin lispro 100 unit/1 mL SUBCUT ×2 (18:34→21:24)
[2023-09-03 20:13] LABS: Glucose Point of Care 245 mg/dL (70-110)
[2023-09-03] MEDS: vancomycin 1,500 MG/300 ML PIGGYBACK 200 MG IV (21:22)
[2023-09-03] MEDS: trazodone 50 mg Tablet PO (22:49)
[2023-09-04] VITALS (18 sets, daily range): BP systolic 102–132; BP diastolic 49–83; PULSE 51–100; RESP 15–29; TEMP 36.6–37.1; O2SAT 95–100
[2023-09-04 04:22] LABS: Basophils % 0.1 %; Eosinophils # 0.1 10^3/uL (0.0-0.8); Eosinophils % 0.8 %; Hematocrit 26.8 % (37-53); Lymphocytes # 1.3 10^3/uL (0.8-4.8); Lymphocytes % 9.8 %; Mean Corpuscular HGB Conc 30.6 g/dL (30-55); Mean Corpuscular Hemoglobin 28.6 pg (27-33); Mean Corpuscular Volume 93.4 fl (82-101); Mean Platelet Volume 10.5 fL (7.4-10.4); Monocytes # 0.5 10^3/uL (0.2-0.9); Monocytes % 3.8 %; Neutrophils # 11.07 10^3/uL (1.8-7.7); Neutrophils % 84.8 %; Nucleated Red Blood Cells % 0 %; Platelet Count 347 10^3/cmm (157-399); Red Blood Count 2.87 10^6/uL (3.85-5.65); Red Cell Distribution Width 16.2 % (12.1-15.1); White Blood Count 13.06 10^3/uL (3.29-11.43)
[2023-09-04 04:47] LABS: Alanine Aminotransferase 31 U/L (0-41); Albumin Level 2.3 g/dL (3.5-5.2); Alkaline Phosphatase 269 U/L (40-130); Anion Gap 9.5 (5-19); Aspartate Amino Transferase 35 U/L (0-40); Blood Urea Nitrogen 13 mg/dL (8-23); Calcium 8.8 mg/dL (8.5-10.5); Carbon Dioxide 32 mmol/L (22-29); Chloride 101 mmol/L (98-107); Creatinine Clr Calc Pharmacy 69.1774; Globulin 3.4 g/dL (1.3-4.6); Glucose 146 mg/dL (65-115); Osmolality Calculated 289 mOsm/kg (285-295); Potassium 4.5 mmol/L (3.5-5.1); Sodium 138 mmol/L (136-145); Total Bilirubin 0.2 mg/dL (0.15-1.2); Total Protein 5.7 g/dL (6.6-8.7)
[2023-09-04] MEDS: oxyCODONE-APAP 10-325 mg Tablet 1 TAB PO ×2 (05:10→10:02)
[2023-09-04] MEDS: folic acid 1 mg Tablet 2 MG PO (05:10)
[2023-09-04] MEDS: piperacillin-tazobactam 3.375 GM in sodium chloride 0.9% (plus) 50 ML IV ×3 (06:22→23:19)
[2023-09-04 06:28] LABS: Glucose Point of Care 190 mg/dL (70-110)
[2023-09-04] MEDS: ipratropium-albuterol 3 mL Neb INHALATION ×3 (07:25→19:53)
[2023-09-04] MEDS: insulin lispro 100 unit/1 mL SUBCUT ×3 (07:32→18:18)
[2023-09-04] MEDS: gabapentin 400 mg Capsule 800 MG PO ×2 (07:35→18:30)
[2023-09-04] MEDS: metoprolol tartrate 25 mg Tablet 12.5 MG PO ×2 (07:36→18:30)
[2023-09-04] MEDS: pantoprazole DR 40 mg Tablet PO (07:36)
[2023-09-04] MEDS: sucralfate 1 gm Tablet PO ×2 (07:36→18:19)
[2023-09-04] MEDS: hyDRALAzine 25 mg Tablet PO ×2 (07:36→18:19)
--- NOTE | 2023-09-04 09:39 | PC.SOCIAL ---
IMM Update Pg. 2 of IMM updated. Initialed, dated, and timed. Copy provided at bedside.
--- NOTE | 2023-09-04 09:48 | PC.CHAP ---
Pastoral Care Encounter/Spiritual Assessment Type of Contact [] Declined fountain server visit [] Patient/Family/Request visit [] Outpatient visit [] Follow-up visit [] Physician referral [] Code/Alert [x] Routine visit [] Staff referral [] Actively dying [] Patient sleeping [] Family support [] [] Out of room [] Palliative care [] [] Receiving care in room [] Pre-surgical visit [] Trauma [] Long length of stay [] ICU visit [] Other: Relational/Emotional Strength [] Patient feels connected with others/family/visitors/staff [] Distress [] Loneliness/isolation [] Abandonment Spirituality of Patient [] Person of Latoya [] Attends Jewish of their Latoya [] Believes in Prayer [] Reads Bible or Mosque materials [] There are Spiritual issues to be addressed Solvent Station Attendant Interventions [] Prayer [] Active listening [] Non-anxious presence [] Spiritual/emotional support [] Crisis/trauma care [] Spiritual counseling [] Bereavement support [] Provided bereavement packet [] Provided Bible/devotional materials [] Provided toy/stuffed animal, coloring book to patient or family member [] Provided Communion [] Anointing/[place] [] Salvation [] Completed spiritual assessment [] Other: Impact on Illness or Injury [] Angry [] Fearful [] Anxious [] Often cries [] Exhaustion [] Unable to work [] Unable to attend adventism [] Unable to walk/stand [] Unable to read [] Unable to drive [] Unable to eat/drink [] Unable to sleep [] Unable to be with family [] Patient intubated [] Other: Summary not able to enter room Time spent with patient
[2023-09-04 10:37] LABS: Vancomycin Trough 15.9 ug/mL (10-15)
--- NOTE | 2023-09-04 11:14 | P.PN_ITS ---
Subjective 2 Subjective: Can remove Flores catheter Hematuria improved Eliquis was put on hold related to hematuria Tuberculosis test third sample taken today Patient is currently on 3 L, at home uses 4 L My suspicion for TB is low at this point Continue antibiotics Vitals/I&O/Wt Last Vital Signs Temp 97.9 F 09/04/23 07:17 Pulse 68 09/04/23 07:39 Resp 19 H 09/04/23 10:02 BP 111/59 09/04/23 07:17 Pulse Ox 95 09/04/23 10:02 O2 Del Method Nasal Cannula 09/04/23 07:26 O2 Flow Rate 3 09/04/23 07:26 09/03/23 09/04/23 09/04/23 22:59 06:59 14:59 Intake Total 840 / 1800 50 / 1850 Output Total 400 / 700 200 / 900 Balance 440 / 1100 -150 / 950 Weight last 48 hrs Weight 63.957 kg Weight 60.373 kg Weight 61.552 kg Physical Exam 2 Narrative: Laying supine Currently on 3 L Euvolemic Awake alert No active hematuria Pleasant S1, S2 Abdomen soft Nonfocal neuroexam GCS 15 Data 09/04/23 04:03 09/04/23 04:03 Micro: Microbiology 09/02/23 12:53 Urine Culture - Final Urine,Clean Catch 09/02/23 20:34 Gram Stain - Final Sputum - Expectorated Sputum 09/02/23 12:36 Blood Culture - Preliminary Blood NEGATIVE TO DATE 09/02/23 12:34 Blood Culture - Preliminary Blood NEGATIVE TO DATE A&P Assessment and plan (1) Chronic anticoagulation: (2) Pulmonary embolism: (3) Dysphagia: (4) Gross hematuria: (5) Retained ureteral stent: (6) Leukocytosis: (7) Pneumonia: (8) Filling defect on imaging study: (9) Tobacco abuse: Plan Tuberculosis needs to be ruled out Discontinue Flores catheter Hemoglobin stable after getting 1 unit PRBC Hematuria improved If hematuria reoccurs may need CT abdomen pelvis to rule out obstructive uropathy and stone 3 sputum sample taken QuantiFERON test has been sent Patient has been on antibiotics for opportunistic infection prophylaxis Currently on 3 L at home uses 4 L Plan to discharge him home once we rule out TB DNR/DNI No Flores catheter Eliquis was put on hold for now he is on therapeutic Lovenox Pulmonary embolism was diagnosed on previous admission Attestations 2 Medical Necessity Statement*: Plan to discharge after TB has been ruled out Diagnoses Chronic anticoagulation Z79.01 Pulmonary embolism I26.99 Dysphagia R13.10 Gross hematuria R31.0 Retained ureteral stent Z96.0 Leukocytosis D72.829 Pneumonia J18.9 Filling defect on imaging study R93.89 Tobacco abuse Z72.0
[2023-09-04] MEDS: vancomycin 1,500 MG/300 ML PIGGYBACK 200 MG IV ×2 (11:40→21:30)
[2023-09-04 12:00] LABS: Glucose Point of Care 216 mg/dL (70-110)
--- NOTE | 2023-09-04 13:04 | PC.NURSE ---
Pt wants to wait this afternoon for us to remove his Flores catheter.
[2023-09-04] MEDS: azithromycin 250 mg Tablet PO (15:05)
[2023-09-04 16:59] LABS: Methicillin-Resist S.aureu PCR NOT DETECTED (NOT DETECTED)
[2023-09-04 17:13] LABS: Glucose Point of Care 238 mg/dL (70-110)
[2023-09-04] MEDS: enoxaparin 100 mg/mL Syringe 60 MG SUBCUT (18:18)
[2023-09-04] MEDS: atorvastatin 40 mg Tablet PO (18:19)
[2023-09-04 20:10] LABS: Glucose Point of Care 129 mg/dL (70-110)
[2023-09-05] VITALS (17 sets, daily range): BP systolic 113–132; BP diastolic 70–87; PULSE 78–108; RESP 16–26; TEMP 36.6–36.8; O2SAT 92–97
[2023-09-05] MEDS: oxyCODONE-APAP 10-325 mg Tablet 1 TAB PO ×5 (00:28→22:30)
[2023-09-05] MEDS: trazodone 50 mg Tablet PO ×2 (00:29→22:31)
[2023-09-05] MEDS: ipratropium-albuterol 3 mL Neb INHALATION ×4 (02:01→19:40)
[2023-09-05 04:15] LABS: Basophils % 0.2 %; Eosinophils # 0.3 10^3/uL (0.0-0.8); Eosinophils % 1.5 %; Hematocrit 30.4 % (37-53); Lymphocytes % 5.6 %; Mean Corpuscular HGB Conc 31.3 g/dL (30-55); Mean Corpuscular Hemoglobin 28.4 pg (27-33); Mean Corpuscular Volume 90.7 fl (82-101); Mean Platelet Volume 10.3 fL (7.4-10.4); Monocytes # 0.7 10^3/uL (0.2-0.9); Monocytes % 3.9 %; Neutrophils # 15.33 10^3/uL (1.8-7.7); Neutrophils % 88.1 %; Nucleated Red Blood Cells % 0 %; Platelet Count 365 10^3/cmm (157-399); Red Blood Count 3.35 10^6/uL (3.85-5.65); Red Cell Distribution Width 15.5 % (12.1-15.1); White Blood Count 17.42 10^3/uL (3.29-11.43)
[2023-09-05 04:40] LABS: Anion Gap 13.1 (5-19); Blood Urea Nitrogen 11 mg/dL (8-23); Calcium 8.9 mg/dL (8.5-10.5); Carbon Dioxide 31 mmol/L (22-29); Chloride 100 mmol/L (98-107); Creatinine Clr Calc Pharmacy 81.0824; Glucose 200 mg/dL (65-115); Osmolality Calculated 293 mOsm/kg (285-295); Potassium 5.1 mmol/L (3.5-5.1); Sodium 139 mmol/L (136-145)
[2023-09-05] MEDS: folic acid 1 mg Tablet 2 MG PO (06:05)
[2023-09-05] MEDS: piperacillin-tazobactam 3.375 GM in sodium chloride 0.9% (plus) 50 ML IV ×3 (06:06→22:32)
[2023-09-05 06:29] LABS: Glucose Point of Care 231 mg/dL (70-110)
[2023-09-05] MEDS: insulin lispro 100 unit/1 mL SUBCUT ×3 (09:15→21:01)
[2023-09-05] MEDS: hyDRALAzine 25 mg Tablet PO ×2 (09:16→17:32)
[2023-09-05] MEDS: metoprolol tartrate 25 mg Tablet 12.5 MG PO ×2 (09:17→17:31)
[2023-09-05] MEDS: gabapentin 400 mg Capsule 800 MG PO ×2 (09:17→17:30)
[2023-09-05] MEDS: pantoprazole DR 40 mg Tablet PO (09:17)
[2023-09-05] MEDS: sucralfate 1 gm Tablet PO ×2 (09:17→17:31)
[2023-09-05] MEDS: vancomycin 1,500 MG/300 ML PIGGYBACK 200 MG IV ×2 (10:36→22:33)
--- NOTE | 2023-09-05 10:54 | PM.PN ---
Subjective Subjective: Patient is doing well Currently on 3 L Stating that he gets hypoxic on ambulation Spoke with micro lab they do not have any preliminary report, most likely I will be able to see prelim report by tomorrow If patient remains stable should be able to discharge him by tomorrow Vitals/I&O/Wt Last Vital Signs Temp 98.0 F 09/05/23 08:00 Pulse 78 09/05/23 08:00 Resp 20 H 09/05/23 09:16 BP 113/87 09/05/23 08:00 Pulse Ox 94 09/05/23 09:16 O2 Del Method Nasal Cannula 09/05/23 08:00 O2 Flow Rate 3 09/05/23 08:00 09/04/23 09/05/23 09/05/23 22:59 06:59 14:59 Intake Total 290 / 1228 350 / 1578 Output Total 1550 / 2630 Balance 290 / 148 -1200 / -1052 Weight last 48 hrs Weight 61.235 kg Weight 63.957 kg Physical Exam Narrative: Laying supine Currently on 3 L No audible stridor or rhonchi S1, S2 Euvolemic GCS 15 at the bedside Hemodynamically stable Hypoxia on ambulation Muscle mass loss Data 09/05/23 04:01 09/05/23 04:01 Micro: Microbiology 09/02/23 20:34 Gram Stain - Final Sputum - Expectorated Sputum Sputum Culture - Final 09/02/23 12:53 Urine Culture - Final Urine,Clean Catch A&P Assessment and plan (1) Chronic anticoagulation: (2) Pulmonary embolism: (3) Difficulty swallowing: (4) Gross hematuria: (5) Hematuria: (6) Filling defect on imaging study: (7) Nicotine addiction: (8) COPD (chronic obstructive pulmonary disease): (9) Chronic hypoxemic respiratory failure: (10) Pneumonia: Plan Patient currently is getting opportunistic infection prophylactic regimen I do not have preliminary report from Mycobacterium tuberculosis I have to keep him here till tomorrow to follow-up with prelim report Touch base with micro lab today Patient is DNR/DNI Acute on chronic hypoxia: Improving currently on 3 L CAD hypoxic on ambulation No fever Has been accepted at [facility] DVT prophylaxis on board Cultures negative to date Recent PE currently on anticoagulating agent, hematuria resolved I will start him back on Eliquis discontinued Lovenox Attestations Medical Necessity Statement*: Possible discharge in next 24 to 48 hours Diagnoses Chronic anticoagulation Z79.01 Pulmonary embolism I26.99 Difficulty swallowing R13.10 Gross hematuria R31.0 Hematuria R31.9 Filling defect on imaging study R93.89 Nicotine addiction F17.200 COPD (chronic obstructive pulmonary disease) J44.9 Chronic hypoxemic respiratory failure J96.11 Pneumonia J18.9
[2023-09-05 11:48] LABS: Glucose Point of Care 236 mg/dL (70-110)
[2023-09-05 17:12] LABS: Glucose Point of Care 142 mg/dL (70-110)
[2023-09-05] MEDS: atorvastatin 40 mg Tablet PO (17:30)
[2023-09-05 20:28] LABS: Glucose Point of Care 358 mg/dL (70-110)
[2023-09-05] MEDS: apixaban 5 mg Tablet PO (21:00)
[2023-09-06] VITALS (15 sets, daily range): BP systolic 112–138; BP diastolic 68–86; PULSE 81–110; RESP 16–26; TEMP 36.5–37; O2SAT 93–98
[2023-09-06] MEDS: ipratropium-albuterol 3 mL Neb INHALATION ×3 (01:35→20:35)
[2023-09-06] MEDS: folic acid 1 mg Tablet 2 MG PO (06:03)
[2023-09-06] MEDS: piperacillin-tazobactam 3.375 GM in sodium chloride 0.9% (plus) 50 ML IV (06:07)
[2023-09-06 07:04] LABS: Glucose Point of Care 182 mg/dL (70-110)
[2023-09-06] MEDS: insulin lispro 100 unit/1 mL SUBCUT ×4 (08:43→21:01)
[2023-09-06] MEDS: metoprolol tartrate 25 mg Tablet 12.5 MG PO ×2 (08:48→17:38)
[2023-09-06] MEDS: gabapentin 400 mg Capsule 800 MG PO ×2 (08:48→17:37)
[2023-09-06] MEDS: apixaban 5 mg Tablet PO ×2 (08:49→20:52)
[2023-09-06] MEDS: sucralfate 1 gm Tablet PO ×2 (08:49→17:37)
[2023-09-06] MEDS: hyDRALAzine 25 mg Tablet PO ×2 (08:50→17:37)
[2023-09-06] MEDS: pantoprazole DR 40 mg Tablet PO (08:50)
[2023-09-06] MEDS: oxyCODONE-APAP 10-325 mg Tablet 1 TAB PO ×3 (08:57→22:58)
--- NOTE | 2023-09-06 09:15 | PC.SOCIAL ---
IMM Update Pg.2 of IMM updated. Copy provided at bedside.
[2023-09-06 09:51] LABS: Basophils % 0.2 %; Eosinophils # 0.2 10^3/uL (0.0-0.8); Eosinophils % 1.3 %; Hematocrit 31.9 % (37-53); Lymphocytes % 5.5 %; Mean Corpuscular HGB Conc 31.7 g/dL (30-55); Mean Corpuscular Hemoglobin 28.9 pg (27-33); Mean Corpuscular Volume 91.4 fl (82-101); Mean Platelet Volume 10.7 fL (7.4-10.4); Monocytes # 0.9 10^3/uL (0.2-0.9); Monocytes % 4.8 %; Neutrophils % 87.5 %; Nucleated Red Blood Cells % 0 %; Platelet Count 380 10^3/cmm (157-399); Red Blood Count 3.49 10^6/uL (3.85-5.65); Red Cell Distribution Width 15.5 % (12.1-15.1); White Blood Count 17.95 10^3/uL (3.29-11.43)
[2023-09-06 10:07] LABS: Vancomycin Trough 15.9 ug/mL (10-15)
[2023-09-06] MEDS: vancomycin 1,500 MG/300 ML PIGGYBACK 200 MG IV (10:41)
[2023-09-06 11:00] LABS: Glucose Point of Care 248 mg/dL (70-110)
--- NOTE | 2023-09-06 11:48 | P.PN_ITS ---
Subjective 2 Subjective: Patient is stating that when he woke up he was not feeling good As per the patient gets extremely short of breath on minimal exertion Prelim report of sputum culture is pending At the time of evaluation patient is stating feeling better but endorsing feeling worse when he woke up however now he is on 3 L, diminished bilateral breath sounds, requested chest x-ray Vitals/I&O/Wt Last Vital Signs Temp 98.6 F 09/06/23 08:00 Pulse 108 H 09/06/23 08:00 Resp 20 H 09/06/23 08:57 BP 131/86 09/06/23 08:00 Pulse Ox 93 09/06/23 08:57 O2 Del Method Nasal Cannula 09/06/23 08:00 O2 Flow Rate 3 09/06/23 01:35 09/05/23 09/06/23 09/06/23 22:59 06:59 14:59 Intake Total 590 / 1540 750 / 2290 Output Total 800 / 1150 700 / 1850 Balance -210 / 390 50 / 440 Weight last 48 hrs Weight 61.235 kg Weight 61.235 kg Physical Exam 2 Narrative: Patient clinically does not look fluid overloaded Bilateral breath sounds asymmetrical Right-sided louder as compared to left Mild rhonchi present bilaterally S1, S2 Awake and alert Abdomen soft Lower extremity no edema Currently on 3 L awake and alert Data 09/06/23 09:24 09/05/23 04:01 Micro: Microbiology 09/02/23 20:34 Gram Stain - Final Sputum - Expectorated Sputum Sputum Culture - Final A&P Assessment and plan (1) Chronic anticoagulation: (2) Pulmonary embolism: (3) Difficulty swallowing: (4) Gross hematuria: (5) Hematuria: (6) Filling defect on imaging study: (7) Nicotine addiction: (8) COPD (chronic obstructive pulmonary disease): (9) Chronic hypoxemic respiratory failure: (10) Pneumonia: Plan Repeat x-ray today Preliminary report is pending Has been accepted at [facility] Patient gets short of breath easily on minimal exertion Continue Eliquis Hematuria resolved Flores cath removed TB needs to be ruled out Repeat CBC BMP for tomorrow Will request C. difficile sample because patient has had 3 loose stools Discontinue antibiotics DNR/DNI Attestations 2 Medical Necessity Statement*: Awaiting tuberculosis test preliminary report Currently suffering from diarrhea, rule out C. difficile, repeating x-ray Diagnoses Chronic anticoagulation Z79.01 Pulmonary embolism I26.99 Difficulty swallowing R13.10 Gross hematuria R31.0 Hematuria R31.9 Filling defect on imaging study R93.89 Nicotine addiction F17.200 COPD (chronic obstructive pulmonary disease) J44.9 Chronic hypoxemic respiratory failure J96.11 Pneumonia J18.9
--- NOTE | 2023-09-06 11:49 | XRR_ITS ---
PROCEDURE INFORMATION: Exam: XR Chest Exam date and time: 09/06/2023 11:58 AM Age: 73 years old Clinical indication: Shortness of breath; Prior surgery; Surgery date: 6+ months; Surgery type: Cardiac stents; Additional info: Rhonchi with crackles TECHNIQUE: Imaging protocol: Radiologic exam of the chest. Views: 1 view. COMPARISON: CT chest wo con [id number] 09/02/2023 2:45 PM FINDINGS: Lungs: Severe bilateral upper lobe fibrosis with upper retraction of the emili. Changes are predominantly chronic on the right but a left-sided infiltrate has developed, new since 09/02/2023. There are several skin folds on the left side which simulated pneumothorax. I do not believe a pneumothorax is present. However, please correlate clinically. Pleural spaces: Unremarkable. No pleural effusion. Heart/Mediastinum: No change in the heart or mediastinum. Bones/joints: Unremarkable. XR/XR chest 1V portable [id number] IMPRESSION: 1. Developing left upper lobe infiltrate. 2. Stable severe chronic changes bilaterally.
[2023-09-06 17:05] LABS: Glucose Point of Care 309 mg/dL (70-110)
[2023-09-06] MEDS: atorvastatin 40 mg Tablet PO (17:37)
[2023-09-06] MEDS: cefepime 1,000 MG in sodium chloride 0.9% (plus) 50 ML 100 MG IV (20:55)
[2023-09-06 20:56] LABS: Glucose Point of Care 147 mg/dL (70-110)
[2023-09-06] MEDS: trazodone 50 mg Tablet PO (22:58)
[2023-09-07] VITALS (16 sets, daily range): BP systolic 102–136; BP diastolic 66–80; PULSE 86–112; RESP 17–30; TEMP 36.6–37.6; O2SAT 92–100; BMI 18.5
[2023-09-07 03:27] LABS: C.Diff PCR (Lab) NEGATIVE (Negative)
[2023-09-07 04:48] LABS: Basophils % 0.1 %; Eosinophils # 0.2 10^3/uL (0.0-0.8); Eosinophils % 1.8 %; Lymphocytes # 1.1 10^3/uL (0.8-4.8); Lymphocytes % 8.4 %; Mean Corpuscular HGB Conc 31.1 g/dL (30-55); Mean Corpuscular Hemoglobin 28.7 pg (27-33); Mean Corpuscular Volume 92.2 fl (82-101); Mean Platelet Volume 10.3 fL (7.4-10.4); Monocytes # 0.8 10^3/uL (0.2-0.9); Monocytes % 5.8 %; Neutrophils % 83.3 %; Nucleated Red Blood Cells % 0 %; Platelet Count 324 10^3/cmm (157-399); Red Blood Count 2.93 10^6/uL (3.85-5.65); Red Cell Distribution Width 15.3 % (12.1-15.1); White Blood Count 13.34 10^3/uL (3.29-11.43)
[2023-09-07 05:13] LABS: Anion Gap 12.2 (5-19); Blood Urea Nitrogen 15 mg/dL (8-23); Calcium 8.3 mg/dL (8.5-10.5); Carbon Dioxide 29 mmol/L (22-29); Chloride 101 mmol/L (98-107); Creatinine Clr Calc Pharmacy 70.1651; Glucose 354 mg/dL (65-115); Osmolality Calculated 301 mOsm/kg (285-295); Potassium 4.2 mmol/L (3.5-5.1); Sodium 138 mmol/L (136-145)
[2023-09-07] MEDS: levoFLOXacin 750 mg Tablet PO (05:48)
[2023-09-07] MEDS: oxyCODONE-APAP 10-325 mg Tablet 1 TAB PO ×2 (05:56→13:48)
[2023-09-07] MEDS: folic acid 1 mg Tablet 2 MG PO (05:56)
[2023-09-07 06:23] LABS: Glucose Point of Care 277 mg/dL (70-110)
[2023-09-07] MEDS: ipratropium-albuterol 3 mL Neb INHALATION ×3 (07:40→20:17)
[2023-09-07] MEDS: hyDRALAzine 25 mg Tablet PO ×2 (08:08→18:11)
[2023-09-07] MEDS: gabapentin 400 mg Capsule 800 MG PO ×2 (08:08→18:10)
[2023-09-07] MEDS: insulin lispro 100 unit/1 mL SUBCUT ×3 (08:08→18:11)
[2023-09-07] MEDS: apixaban 5 mg Tablet PO (08:09)
[2023-09-07] MEDS: metoprolol tartrate 25 mg Tablet 12.5 MG PO ×2 (08:09→18:11)
[2023-09-07] MEDS: cefepime 1,000 MG in sodium chloride 0.9% (plus) 50 ML 100 MG IV ×2 (08:09→20:47)
[2023-09-07] MEDS: sucralfate 1 gm Tablet PO ×2 (08:09→18:10)
[2023-09-07] MEDS: pantoprazole DR 40 mg Tablet PO (08:09)
[2023-09-07] MEDS: doxycycline 100 mg Tablet PO ×2 (08:09→18:10)
[2023-09-07 11:34] LABS: Glucose Point of Care 161 mg/dL (70-110)
--- NOTE | 2023-09-07 12:11 | P.PN_ITS ---
Subjective 2 Subjective: Patient is stating that today he is feeling slightly better Did tell him what his x-ray findings We did go over potential complications in the future he is at risk of pneumothorax, he is DNR/DNI Patient stating that he probably does not want any aggressive intervention in case something happens to him, he is well aware that he might not do well in the future he gets short of breath easily with mild exertion He is okay holding his Eliquis today because of drop in hemoglobin No active hematuria I called micro lab they are stating that tuberculosis test PCR will be completed by tomorrow C. difficile ruled out, patient only had 1 loose stools in last 24 hours Vitals/I&O/Wt Last Vital Signs Temp 97.9 F 09/07/23 11:32 Pulse 100 09/07/23 11:32 Resp 30 H 09/07/23 11:32 BP 117/78 09/07/23 11:32 Pulse Ox 99 09/07/23 11:32 O2 Del Method Nasal Cannula 09/07/23 11:32 O2 Flow Rate 3 09/07/23 07:40 09/06/23 09/07/23 09/07/23 22:59 06:59 14:59 Intake Total 830 / 1360 50 / 50 Output Total 200 / 650 Balance 630 / 710 50 / 50 Weight last 48 hrs Weight 60.328 kg Weight 61.235 kg Physical Exam 2 Narrative: Mild rhonchi with no active wheeze Currently on 3 L nasal cannula Pleasant and cooperative man sitting in a chair at the bedside S1, S2 Abdomen soft Data 09/07/23 04:09 09/07/23 04:09 Micro: Microbiology 09/07/23 00:00 Occult Blood (FIT) - Final Stool - Stool Aspirate A&P Assessment and plan (1) COPD (chronic obstructive pulmonary disease): (2) Chronic hypoxemic respiratory failure: (3) Pneumonia: (4) Filling defect on imaging study: (5) Nicotine addiction: (6) Tobacco abuse: (7) Chronic anticoagulation: (8) Pulmonary embolism: Plan C. difficile ruled out Antibiotics were changed to cefepime and levofloxacin yesterday Afebrile Currently on 3 L TB PCR test will be completed by tomorrow Plan to discharge him to [facility] likely by tomorrow Hemodynamically stable DNR/DNI Attestations 2 Medical Necessity Statement*: Likely discharge tomorrow Diagnoses COPD (chronic obstructive pulmonary disease) J44.9 Chronic hypoxemic respiratory failure J96.11 Pneumonia J18.9 Filling defect on imaging study R93.89 Nicotine addiction F17.200 Tobacco abuse Z72.0 Chronic anticoagulation Z79.01 Pulmonary embolism I26.99
[2023-09-07 17:10] LABS: Glucose Point of Care 256 mg/dL (70-110)
[2023-09-07 18:08] LABS: Aspergillus AG,EIA,Serum NOT DETECTED; Aspergillus Galactomannan Inde <0.50
[2023-09-07] MEDS: atorvastatin 40 mg Tablet PO (18:10)
[2023-09-07 20:24] LABS: Glucose Point of Care 139 mg/dL (70-110)
[2023-09-08] VITALS (10 sets, daily range): BP systolic 128–141; BP diastolic 66–75; PULSE 81–117; RESP 17–29; TEMP 36.7–37.3; O2SAT 93–98; BMI 18.7
[2023-09-08] MEDS: oxyCODONE-APAP 10-325 mg Tablet 1 TAB PO (01:29)
[2023-09-08] MEDS: ipratropium-albuterol 3 mL Neb INHALATION ×2 (03:06→09:29)
--- NOTE | 2023-09-08 03:45 | PC.NURSE ---
Patient did not have a cbc or bmp ordered for this morning labs. Dr Olivas notified and orders placed.
[2023-09-08] MEDS: folic acid 1 mg Tablet 2 MG PO (06:03)
[2023-09-08] MEDS: levoFLOXacin 750 mg Tablet PO (06:03)
[2023-09-08 06:09] LABS: Basophils % 0.1 %; Eosinophils # 0.2 10^3/uL (0.0-0.8); Hematocrit 28.7 % (37-53); Lymphocytes # 1.1 10^3/uL (0.8-4.8); Lymphocytes % 7.6 %; Mean Corpuscular HGB Conc 31.4 g/dL (30-55); Mean Corpuscular Hemoglobin 28.5 pg (27-33); Mean Corpuscular Volume 90.8 fl (82-101); Mean Platelet Volume 10.2 fL (7.4-10.4); Monocytes # 0.9 10^3/uL (0.2-0.9); Monocytes % 5.8 %; Neutrophils # 12.78 10^3/uL (1.8-7.7); Nucleated Red Blood Cells % 0 %; Platelet Count 345 10^3/cmm (157-399); Red Blood Count 3.16 10^6/uL (3.85-5.65); Red Cell Distribution Width 15.5 % (12.1-15.1); White Blood Count 15.02 10^3/uL (3.29-11.43)
[2023-09-08 06:21] LABS: Glucose Point of Care 302 mg/dL (70-110)
[2023-09-08 06:25] LABS: Blood Urea Nitrogen 14 mg/dL (8-23); Calcium 8.8 mg/dL (8.5-10.5); Carbon Dioxide 28 mmol/L (22-29); Chloride 99 mmol/L (98-107); Creatinine Clr Calc Pharmacy 69.7423; Glucose 289 mg/dL (65-115); Osmolality Calculated 295 mOsm/kg (285-295); Sodium 137 mmol/L (136-145)
[2023-09-08] MEDS: pantoprazole DR 40 mg Tablet PO (09:11)
[2023-09-08] MEDS: sucralfate 1 gm Tablet PO (09:11)
[2023-09-08] MEDS: hyDRALAzine 25 mg Tablet PO (09:11)
[2023-09-08] MEDS: metoprolol tartrate 25 mg Tablet 12.5 MG PO (09:11)
[2023-09-08] MEDS: gabapentin 400 mg Capsule 800 MG PO (09:11)
[2023-09-08] MEDS: doxycycline 100 mg Tablet PO (09:11)
[2023-09-08] MEDS: insulin lispro 100 unit/1 mL SUBCUT (09:12)
[2023-09-08] MEDS: cefepime 1,000 MG in sodium chloride 0.9% (plus) 50 ML 100 MG IV (09:13)
--- NOTE | 2023-09-08 10:59 | PM.DCS ---
Discharge Providers Date of Admission: 09/02/23 16:45 Date of Discharge: September 08, 2023 Attending Provider at Admission: Traci Damon MD Attending Provider at Discharge: Neo Cerna MD Primary Care Provider: Grace Wallis MD Diagnoses at Discharge Discharge Diagnosis (1) COPD (chronic obstructive pulmonary disease): Status: Acute (2) Chronic hypoxemic respiratory failure: Status: Acute (3) Pneumonia: Status: Acute (4) Filling defect on imaging study: Status: Acute (5) Nicotine addiction: Status: Acute (6) Tobacco abuse: Status: Acute (7) Chronic anticoagulation: Status: Acute (8) Pulmonary embolism: Status: Acute Reason for Visit Reason for Visit: blood in urin, not getting any better since last v Hospital Course Hospital Course 73-year-old male who is immunocompromise from being on Humira for RA presented with generalized weakness lethargy fatigue and worsening of pneumonia which is evident on the CT scan, patient was recently diagnosed with pulmonary embolism 10 days before his admission to the hospital he was put on Eliquis, during hospitalization patient developed hematuria, anticoagulation was put on hold, hemoglobin remained stable after 1 unit PRBC, patient had positive FOBT but considering his poor COPD and pulmonary status decision was made not to pursue EGD to avoid risk of intubation, patient is DNR/DNI, for worsening of pneumonia CT scan was done which is showing multiple consolidative changes, he was covered for opportunistic infections as well during hospitalization he remains deconditioned, gets short of breath easily on minimal exertion, did work with PT OT and speech therapy. Patient was initially wanted to go home but he change his mind after he realized that he is very deconditioned and gets hypoxic easily. We requested 3 sputum samples to rule out TB, per preliminary report is not showing any growth so far final results will be reported after 6 weeks. At the time of discharge patient is requiring 3 to 4 L of oxygen which is around his baseline, I have added Spiriva and Advair along few days of antibiotics. Discontinue his metformin considering low GFR. Patient will be considered high risk for readmissions considering his poor pulmonary status. In case of further worsening he may be considered for palliative care. I will give him outpatient referral to see a supervisor hard candy as well. He is being discharged to [facility]. Patient and both understand underlying chronic conditions. Patient at baseline uses 4 L, active smoker, PFTs consistent with severe outflow obstruction CT scan showing significant centrilobular and paraseptal emphysema he will be considered high risk for pneumothorax as well Physical Exam Narrative: Deconditioned End-stage COPD Currently on 3 L Awake and alert Nonfocal neuroexam Discharge Data Studies Completed and Pending Completed Studies During Hospitalization Category Date Time Status CT chest wo con [id number] Stat Cat Scan 09/02/23 14:13 Completed XR chest 1V portable [id number] Routine Exams 09/06/23 11:49 Completed XR chest 1V portable [id number] Stat Exams 09/02/23 11:59 [place] [id number] Stat Ultrasound 09/02/23 18:07 Completed Pending at discharge Category Date Time Status Blastomyces AB Panel CF and ID Routine Lab 09/03/23 Received Coccidioides AB CF Serum Routine Lab 09/03/23 Received Fungitell Glucan Assay (Blood) Routine Lab 09/08/23 06:02 Received Histoplasma Antibody Immunodif Routine Lab 09/03/23 Received Histoplasma Quantitative AG Routine Lab 09/03/23 16:15 Received MRSA [Methicillin Resistant S.aureu] Routine Lab 09/06/23 20:55 Received MTB Complex Rifampin PCR Q8H Lab 09/03/23 10:30 Received Mycobacteria, Culture w/Fluor Q8H Lab 09/02/23 10:30 Received Mycobacteria, Culture w/Fluor Q8H Lab 09/03/23 14:30 Received Radiology Impressions Chest CT 09/02/23 14:13 IMPRESSION: 1. Extensive consolidation in the right upper lung is new since 05/25/2023 and similar to findings on 08/22/2023. Findings are suspicious for infection superimposed upon emphysema. 2. Severe centrilobular emphysema with large upper lung bullae, similar to findings in 2019. 3. Incompletely imaged upper abdominal aortic aneurysm. Recommend nonemergent CT or ultrasound evaluation of the abdominal aorta. 4. Incidental findings above. COMMENTS: The presence of pulmonary emphysema on CT is an independent risk factor for lung cancer. In the absence of a history or active diagnosis of lung cancer, it is recommended that this patient with emphysema be evaluated for enrollment in a low dose CT lung cancer screening program. Venous Duplex 09/02/23 18:07 IMPRESSION: No evidence of deep vein thrombosis. Chest X-Ray 09/06/23 11:49 IMPRESSION: 1. Developing left upper lobe infiltrate. 2. Stable severe chronic changes bilaterally. Laboratory Results WBC 15.02 10^3/uL (3.29-11.43) H 09/08/23 06:02 RBC 3.16 10^6/uL (3.85-5.65) L 09/08/23 06:02 Hgb 9.00 g/dL (11.27-16.99) L 09/08/23 06:02 Hct 28.7 % (37-53) L 09/08/23 06:02 MCV 90.8 fl (82-101) 09/08/23 06:02 MCH 28.5 pg (27-33) 09/08/23 06:02 MCHC 31.4 g/dL (30-55) 09/08/23 06:02 RDW 15.5 % (12.1-15.1) H 09/08/23 06:02 Plt Count 345 10^3/cmm (157-399) 09/08/23 06:02 MPV 10.2 fL (7.4-10.4) 09/08/23 06:02 Neut % (Auto) 85.0 % 09/08/23 06:02 Lymph % (Auto) 7.6 % 09/08/23 06:02 [place] % (Auto) 5.8 % 09/08/23 06:02 Eos % (Auto) 1.0 % 09/08/23 06:02 Baso % (Auto) 0.1 % 09/08/23 06:02 Neut # (Auto) 12.78 10^3/uL (1.8-7.7) H 09/08/23 06:02 Lymph # (Auto) 1.1 10^3/uL (0.8-4.8) 09/08/23 06:02 [place] # (Auto) 0.9 10^3/uL (0.2-0.9) 09/08/23 06:02 Eos # (Auto) 0.2 10^3/uL (0.0-0.8) 09/08/23 06:02 Baso # (Auto) 0.0 10^3/uL (0.0-0.1) 09/08/23 06:02 Nucleated RBC % (auto) 0 % 09/08/23 06:02 Nucleated RBCs # 0.0 /100WBC 09/08/23 06:02 PT 20.90 SECONDS (12.1-14.9) H 09/02/23 12:34 INR 1.74 (0.8-1.2) H 09/02/23 12:34 APTT 43.7 SECONDS (23.9-36.7) H 09/02/23 12:34 Specimen Type Arterial 09/02/23 12:15 Sample Site Radial, right 09/02/23 12:15 ABG pH 7.43 (7.35-7.45) 09/02/23 12:15 ABG pCO2 50.3 mmHg (35-45) H 09/02/23 12:15 ABG pO2 97.0 mmHg (80.0-100.0) 09/02/23 12:15 ABG PO2/FiO2 Ratio 303 09/02/23 12:15 ABG HCO3 33.5 mmol/L (22-26) H 09/02/23 12:15 ABG O2 Saturation 98.0 09/02/23 12:15 ABG Base Excess 7.6 mmol/L (-2.0-2.0) H 09/02/23 12:15 [place] Test Pos 09/02/23 12:15 A-a O2 Gradient 8.9 mmHg (5-10) 09/02/23 12:15 Hematocrit 44.9 % (42-52) 09/02/23 12:15 Hgb O2 Saturation 92.1 % (95-100) L 09/02/23 12:15 Carboxyhemoglobin 4.9 %THgb (0.4-20.1) 09/02/23 12:15 Methemoglobin 1.1 % (0.4-1.5) 09/02/23 12:15 Total Hemoglobin 14.7 g/dL (14-18) 09/02/23 12:15 Sodium 137.0 mmol/L (131-143) 09/02/23 12:15 Potassium 4.0 mmol/L (3.5-5.0) 09/02/23 12:15 Glucose 225.0 mg/dL (70-115) H 09/02/23 12:15 Ionized Calcium 1.2 mmol/L (1.1-1.4) 09/02/23 12:15 O2 Delivery Device Nc 09/02/23 12:15 O2 Liters/Min 3.0 % 07/27/24 12:15 FiO2 32.0 % 09/02/23 12:15 Multi Media Specialist ID glc 09/02/23 12:15 Sodium 137 mmol/L (136-145) 09/08/23 06:02 Potassium 4.0 mmol/L (3.5-5.1) 09/08/23 06:02 Chloride 99 mmol/L (98-107) 09/08/23 06:02 Carbon Dioxide 28 mmol/L (22-29) 09/08/23 06:02 Anion Gap 14.0 (5-19) 09/08/23 06:02 BUN 14 mg/dL (8-23) 09/08/23 06:02 Creatinine 0.5 mg/dL (0.7-1.2) L 09/08/23 06:02 GFR Calculation Not Reportable 09/08/23 06:02 Glucose 289 mg/dL (65-115) H 09/08/23 06:02 POC Glucose 302 mg/dL (70-110) H 09/08/23 06:17 Calculated Osmolality 295 mOsm/kg (285-295) 09/08/23 06:02 Lactic Acid 3.0 mmol/L (0.5-2.2) H 09/02/23 12:34 Lactic Acid (Sepsis) 2.4 mmol/L (0.5-2.2) H 09/02/23 15:34 Calcium 8.8 mg/dL (8.5-10.5) 09/08/23 06:02 Total Bilirubin 0.2 mg/dL (0.15-1.2) 09/04/23 04:03 AST 35 U/L (0-40) 09/04/23 04:03 ALT 31 U/L (0-41) 09/04/23 04:03 Alkaline Phosphatase 269 U/L (40-130) H 09/04/23 04:03 Troponin T Baseline 47 ng/L (0-15) H 09/02/23 12:34 Troponin T 120 Minute 45.60 ng/L (0-15) H 09/02/23 15:34 Delta Troponin T -1.40 ABS# (0-10) L 09/02/23 15:34 Troponin T Hi Sens 6Hr 34.58 ng/L (0-15) H 09/02/23 18:27 Troponin T Hi Sens 6Hr Delta -12.42 ng/L (0-12) L 09/02/23 18:27 NT-Pro-B Natriuret Pep 933 pg/mL (0-125) H 09/02/23 12:34 Total Protein 5.7 g/dL (6.6-8.7) L 09/04/23 04:03 Albumin 2.3 g/dL (3.5-5.2) L 09/04/23 04:03 Globulin 3.4 g/dL (1.3-4.6) 09/04/23 04:03 Urine Color Dark yellow (Yellow) A 09/02/23 12:53 Urine Appearance Cloudy (CLEAR) A 09/02/23 12:53 Urine pH 6 (5-7) 09/02/23 12:53 Ur Specific [place] 1.015 (1.005-1.030) 09/02/23 12:53 Urine Protein 1+ (Negative) H 09/02/23 12:53 Urine Glucose (UA) Norm (Normal) 09/02/23 12:53 Urine Ketones Negative (Negative) 09/02/23 12:53 Urine Blood 3+ (Negative) H 09/02/23 12:53 Urine Nitrate Negative (Negative) 09/02/23 12:53 Urine Bilirubin 1+ (Negative) H 09/02/23 12:53 Urine Urobilinogen Norm mg/dL (Negative) 09/02/23 12:53 Ur Leukocyte Esterase Negative (Negative) 09/02/23 12:53 Urine RBC Too numerous to cnt /hpf (0-2) H 09/02/23 12:53 Urine WBC 10-15 /hpf (0-5) H 09/02/23 12:53 Ur Squamous Epith Cells None /hpf (0-5) 09/02/23 12:53 Amorphous Sediment Not Reportable 09/02/23 12:53 Urine Bacteria 1+ /hpf (NONE) H 09/02/23 12:53 Vancomycin Trough 15.9 ug/mL (10-15) H 09/06/23 09:24 C. difficile (PCR) Negative (Negative) 09/07/23 00:00 A. galactomannan Ag EIA Not detected 09/03/23 Unknown A. galactomannan Ag Idx <0.50 09/03/23 Unknown MRSA (PCR) Not detected (NOT DETECTED) 09/02/23 19:59 Beta-(1,3)-D-Glucan Cancelled 09/03/23 Unknown B-(1,3)-D-Glucan Intrp Cancelled 09/03/23 Unknown Blood Type O Positive 09/03/23 05:20 Rho(D) Type Rh positive 09/03/23 05:20 Antibody Screen Negative 09/03/23 05:20 Crossmatch See Detail 09/03/23 05:20 Vitals Last Vital Signs Temp 98.1 F 09/08/23 08:00 Pulse 96 09/08/23 09:32 Resp 18 09/08/23 09:32 BP 128/66 09/08/23 08:00 Pulse Ox 93 09/08/23 09:32 O2 Del Method Nasal Cannula 09/08/23 09:32 O2 Flow Rate 3 09/08/23 09:32 Discharge Plan Discharge Patient Disposition: Xfer SNF Condition: Stable Prescriptions: New fluticasone propion-salmeterol [Advair HFA] 115-21 mcg/actuation HFA aerosol inhaler 2 inh inhalation BID Qty: 12 5RF doxycycline monohydrate 100 mg Tablet 100 mg PO BID Qty: 14 0RF amoxicillin-pot clavulanate 875-125 mg tablet 1 tab PO BID Qty: 14 0RF tiotropium bromide [Spiriva with HandiHaler] 18 mcg capsule, w/inhalation device 1 cap inhalation DAILY Qty: 90 3RF Rx Instructions: puncture 1 cap using device; one dose = 2 inhalations Continued gabapentin 400 mg capsule 800 mg PO BID metoprolol tartrate 25 mg tablet 12.5 mg PO BID (DME) Oxygen See Rx Instructions .Route .MEDSUPPLY Qty: 1 0RF Rx Instructions: Increase to 4L/NC. nitroglycerin [Nitrostat] 0.4 mg tablet, sublingual 0.4 mg SUBLINGUAL Q5M PRN (Reason: Chest Pain) Qty: 30 6RF Rx Instructions: max 3 doses Humira Pen 40 mg/0.8 mL pen injector kit 40 mg SUBCUT Q14D Qty: 2 5RF Rx Instructions: every other monday albuterol sulfate 90 mcg/actuation Hfa Aerosol Inhaler 2 puff INHALATION Q4H PRN (Reason: Shortness Of Breath) folic acid 1 mg tablet 2 mg PO QAM oxycodone-acetaminophen 10-325 mg Tablet 1 tab PO Q4H PRN (Reason: Pain) lisinopril 10 mg Tablet 10 mg PO QPM cholecalciferol (vitamin D3) 50 mcg (2,000 unit) Capsule 50 mcg PO QAM methotrexate sodium 2.5 mg tablet 15 mg PO Q7D Rx Instructions: on ipratropium-albuterol 0.5 mg-3 mg(2.5 mg base)/3 mL Solution For Nebulization 3 ml INHALATION Q4H PRN (Reason: Shortness Of Breath) trazodone 50 mg Tablet 50 mg PO QPM PRN (Reason: Sleep) montelukast 10 mg tablet 10 mg PO DAILY insulin aspart U-100 [Novolog FlexPen U-100 Insulin] 100 unit/mL (3 mL) Insulin Pen See Rx Instructions .ROUTE .COMPLEX Rx Instructions: INJECT PER SLIDING SCALE NEEDED. omeprazole 20 mg tablet,delayed release (DR/EC) 20 mg PO DAILY Qty: 90 0RF sucralfate 1 gram tablet 1 g PO BID Qty: 60 0RF Discontinued metformin 1,000 mg tablet 1,000 mg PO BID azithromycin 250 mg Tablet 250 mg PO .ON MON,WED,FRI atorvastatin 40 mg Tablet 40 mg PO QPM Eliquis 5 mg tablet 5 mg PO BID Qty: 120 4RF Rx Instructions: Stop if you notice dark-colored stools Discharge Orders: Discharge Order (Routine); Ordered 09/08/23 Ordered By: Neo Cerna Referrals: Indu Marks MD [Physician] - 1-3 days Grace Wallis MD [Primary Care Provider] - Discharge Attestations Time Spent in Discharge Care*: greater than 30 min Quality Metrics Clinical Quality Measures [ No reported AMI, CVA or VTE this stay] Coding Level of Care Code Acute Code for [facility] Fwd Diagnoses COPD (chronic obstructive pulmonary disease) J44.9 Chronic hypoxemic respiratory failure J96.11 Pneumonia J18.9 Filling defect on imaging study R93.89 Nicotine addiction F17.200 Tobacco abuse Z72.0 Chronic anticoagulation Z79.01 Pulmonary embolism I26.99
[2023-09-08 11:21] LABS: Glucose Point of Care 307 mg/dL (70-110)
[2023-09-08 12:09] LABS: Histoplasma Antigen (Quant) NONE DETECTED; Histoplasma Antigen Interpreta NEGATIVE; Histoplasma Antigen Specimen URINE
[2023-09-08] MEDS: LORazepam 2 mg/mL INJ 1 mL 0.5 MG IVP (12:24)
--- NOTE | 2023-09-08 12:28 | PC.SOCIAL ---
IMM updated IMM dated and initialed, copy given to patient and placed in chart.
[2023-09-08 12:36] LABS: SARS Covid-2 Antigen negative (Negative)
--- NOTE | 2023-09-08 13:24 | PC.NURSE ---
Report called to [facility], Patient discharging with as transport. currently works at [employer]. All belongings sent with patient as well as assisted packet.
--- NOTE | 2023-09-08 13:55 | PC.NURSE ---
Discharge Note Patient discharged to SNF via POV accompanied by spouse. Discharge instructions reviewed with patient and/or sales representative health insurance. Mobile pharmacy medications and/or prescriptions provided. Belongings/home medications returned.
[2023-09-08 14:09] LABS: Methicillin-Resist S.aureu PCR NOT DETECTED (NOT DETECTED)
[2023-09-09 13:39] LABS: Blastomyces AB Immunodiffusion Negative (Negative); Blastomyces Dermatitidis AB <1:8 titer (<1:8)
[2023-09-10 20:19] LABS: Coccidioides AB CF Serum <1:2; Histoplasma capsulatum H Ab NEGATIVE; Histoplasma capsulatum M Ab NEGATIVE
[2023-09-14 22:29] LABS: Fungitell 1-3-B Glucan Assay <31 pg/ml; Interpretation Negative (Negative)
== END 2023-09-08 13:56 | disposition skilled nursing facility (03) | DRG 193 ==
LOC: ER 16:58 → CSU 18:14
PROVIDERS: Internal Medicine; Admitting Provider Student in an Organized Health Care Education/Training Program; Emergency Provider Emergency Medicine; PCP Family Medicine; Visit Provider Internal Medicine
DX: J18.9 Pneumonia, unspecified organism (principal); J96.21 Acute and chronic respiratory failure with hypoxia; D84.821 Immunodeficiency due to drugs; Z86.711 Personal history of pulmonary embolism; M05.9 Rheumatoid arthritis with rheumatoid factor, unspecified; E11.42 Type 2 diabetes mellitus with diabetic polyneuropathy; J43.2 Centrilobular emphysema; F17.210 Nicotine dependence, cigarettes, uncomplicated; I25.10 Atherosclerotic heart disease of native coronary artery without angina pectoris; R19.5 Other fecal abnormalities; R13.10 Dysphagia, unspecified; Z66 Do not resuscitate; R31.0 Gross hematuria; I10 Essential (primary) hypertension; Z99.81 Dependence on supplemental oxygen; Z91.81 History of falling; Z79.631 Long term (current) use of antimetabolite agent; Z79.899 Other long term (current) drug therapy; Z79.84 Long term (current) use of oral hypoglycemic drugs; Z79.4 Long term (current) use of insulin; Z79.01 Long term (current) use of anticoagulants
CPT/HCPCS: 36415; 36416; 36430; 36600; 71045; 71250; 80048; 80051; 80053; 80202; 81001; 82274; 82330; 82805; 82962; 83605; 83880; 84484; 85014; 85018; 85025; 85610; 85730; 86612; 86635; 86698; 86850; 86900; 86920; 87015; 87040; 87070; 87086; 87116; 87205; 87206; 87305; 87385; 87426; 87449; 87493; 87641; 87801; 93005; 93970; 94640; 96365; 96367; 96372; 96375; 96376; 97110; 97116; 97161; 97165; 97530; 97535; 99285; A9270; J0692; J1650; J1815; J2020; J2060; J2185; J2270; J2543; J2919; J3370; J7613; P9040; Q0144